=== PATIENT | female | born 1960 | race Caucasian/White ===

== ENCOUNTER 2017-01-24 21:43 | Observation (INO) | payer OTHER ==
[~2017-01-24] VITALS: Ht 157.5 cm; Wt 62.8 kg
[~2017-01-24 21:43] MED LIST: B-CO1CAP3 PO; CHOL100010 PO; COEN100C11 PO; CTP1X PO; CYM/30 PO; FERR325T51 PO; HYDR50CA PO; IBUP-103 PO; MAGN250T3 PO; MULTTAB PO; OMEG12006 PO; TYLENOL MIGRAINE PO; VITACAP26 PO
[2017-01-24] MEDS ORDERED: LORAZEPAM 2 MG/ML 1 ML VIAL IV STA ×2 (21:59→22:42)
[2017-01-24] MEDS ORDERED: SODIUM CHLORIDE 0.9% 1000ML 1,000 ML IV SCH (22:00)
--- NOTE | 2017-01-24 22:03 | EMERGENCY ROOM VISIT NOTE ---
History Report prepared by Yecenia: Eddie Petty Under the Supervision of: Dr. Robby Pinto D.O. First contact with patient: 21:51 Chief Complaint: MENTAL HEALTH EVALUATION Stated Complaint: MENTAL HEALTH EVAL History of Present Illness The patient is a 56 year old female who presents to the Emergency Room for a mental health evaluation. This HPI is limited secondary to intoxication. Per the patient, her friends were concerned about her. She has been drinking alcohol for the past 6 days and has been doing so to try to kill herself. She states that she does not want to live. She has a history of a gastric bypass. She states that secondary to this, she is "extremely sensitive" to everything. She denies any medical problems. Source of History: patient, police History Limited By: intoxication Onset: 6 days ago Position: other (Global) Symptom Intensity: moderate Quality: other (Alcohol intoxication) Timing: constant Review of Systems Limited secondary to intoxication. Past Medical & Surgical Medical Problems: (1) Asthma W/O Status Asthm Family History No pertinent family history Social History Smoking Status: Unknown if Ever Smoked Smokeless Tobacco Use: Unknown Alcohol Use: none Occupation Status: employed Current/Historical Medications Scheduled B-Complex Vitamins (B Complex), 1 CAP PO DAILY Cholecalciferol (Vitamin D), 1,000 INTER.UNIT PO DAILY Clonidine HCl (Clonidine HCl), 1 TAB PO BID Coenzyme Q10 (Ubidecarenone) (Coq-10), 1 CAP PO DAILY Duloxetine HCl (Cymbalta), 1 CAP PO DAILY Ferrous Sulfate (Iron Supplement), 1 TAB PO DAILY Hydroxyzine Pamoate (Vistaril), 1 CAP PO TID Ibuprofen Tab (Advil), 400 MG PO HS Magnesium (Magnesium 250 mg), 1 TAB PO DAILY Multivitamins/Minerals (Mvi With Minerals), 1 TAB PO DAILY Brunswick-3 Fatty Acids ([place]runswick 3), 1 CAP PO DAILY Vitamins C & E (Vitamin C), 1 CAP PO DAILY [Tylenol Migraine], 2 TABS PO HS Allergies Coded Allergies: No Known Allergies (Unverified , 01/24/17) Physical Exam Vital Signs Date Time Temp Pulse Resp B/P Pulse Ox O2 Delivery O2 Flow Rate FiO2 01/24/17 21:45 37.0 101 20 189/121 95 Room Air Physical Exam GENERAL: Awake, alert, disheveled, smells of alcohol, shaky. HENT: Normocephalic, atraumatic. Oropharynx unremarkable. EYES: Normal conjunctiva. Sclera non-icteric. NECK: Supple. No nuchal rigidity. FROM. No JVD. RESPIRATORY: Clear to auscultation. CARDIAC: Regular rate, normal rhythm. Extremities warm and well perfused. Pulses equal. ABDOMEN: Soft, non-distended. No tenderness to palpation. No rebound or guarding. No masses. RECTAL: Deferred. MUSCULOSKELETAL: Chest examination reveals no tenderness. The back is symmetrical on inspection without obvious abnormality. There is no CVA tenderness to palpation. No joint edema. LOWER EXTREMITIES: Calves are equal size bilaterally and non-tender. No edema. No discoloration. NEURO: Normal sensorium. No sensory or motor deficits noted. SKIN: No rash or jaundice noted. Dirty feet. PSYCH: Anxious appearing. Yelling intermittently. Depressed and suicidal. Denies any homicidal ideation. Medical Decision & Procedures Laboratory Results 01/24/17 22:07 Red Blood Count 4.31, Mean Corpuscular Volume 95.1, Mean Corpuscular Hemoglobin 33.6, Mean Corpuscular Hemoglobin Concent 35.4, Mean Platelet Volume 9.4, Neutrophils (%) (Auto) 42.4, Lymphocytes (%) (Auto) 45.8, Monocytes (%) (Auto) 7.8, Eosinophils (%) (Auto) 1.8, Basophils (%) (Auto) 2.0, Neutrophils # (Auto) 2.33, Lymphocytes # (Auto) 2.52, Monocytes # (Auto) 0.43, Eosinophils # (Auto) 0.10, Basophils # (Auto) 0.11 01/24/17 22:07 Test 01/24/17 22:05 01/24/17 22:07 01/24/17 23:28 Ethyl Alcohol mg/dL 419.0 mg/dl (0-3) White Blood Count 5.50 K/uL (4.8-10.8) Red Blood Count 4.31 M/uL (4.2-5.4) Hemoglobin 14.5 g/dL (12.0-16.0) Hematocrit 41.0 % (37-47) Mean Corpuscular Volume 95.1 fL (80-100) Mean Corpuscular Hemoglobin 33.6 pg (25-34) Mean Corpuscular Hemoglobin Concent 35.4 g/dl (32-36) Platelet Count 195 K/uL (130-400) Mean Platelet Volume 9.4 fL (7.4-10.4) Neutrophils (%) (Auto) 42.4 % Lymphocytes (%) (Auto) 45.8 % Monocytes (%) (Auto) 7.8 % Eosinophils (%) (Auto) 1.8 % Basophils (%) (Auto) 2.0 % Neutrophils # (Auto) 2.33 K/uL (1.4-6.5) Lymphocytes # (Auto) 2.52 K/uL (1.2-3.4) Monocytes # (Auto) 0.43 K/uL (0.11-0.59) Eosinophils # (Auto) 0.10 K/uL (0-0.5) Basophils # (Auto) 0.11 K/uL (0-0.2) RDW Standard Deviation 46.1 fL (36.4-46.3) RDW Coefficient of Variation 13.2 % (11.5-14.5) Immature Granulocyte % (Auto) 0.2 % Immature Granulocyte # (Auto) 0.01 K/uL (0.00-0.02) Anion Gap 12.0 mmol/L (3-11) Est Creatinine Clear Calc Drug Dose 93.9 ml/min Estimated GFR () 120.6 Estimated GFR (Non- 104.0 BUN/Creatinine Ratio 18.9 (10-20) Calcium Level 8.3 mg/dl (8.5-10.1) Total Bilirubin 0.6 mg/dl (0.2-1) Direct Bilirubin 0.2 mg/dl (0-0.2) Aspartate Amino Transf (AST/SGOT) 62 U/L (15-37) Alanine Aminotransferase (ALT/SGPT) 83 U/L (12-78) Alkaline Phosphatase 103 U/L (45-117) Total Protein 7.3 gm/dl (6.4-8.2) Albumin 4.1 gm/dl (3.4-5.0) Thyroid Stimulating Hormone (TSH) 1.900 uIu/ml (0.300-4.500) Laboratory results reviewed by me Medications Administered Medications (Trade) Dose Ordered Sig/Amauri Route Start Time Stop Time Status Last Admin Dose Admin Lorazepam 1 mg 1 mg NOW STAT IV 01/24/17 21:59 01/24/17 22:00 DC 01/24/17 22:19 1 MG Sodium Chloride (Nss 1000ml) 1,000 ml @ 999 mls/hr Q1H1M IV 01/24/17 22:00 02/23/17 21:59 01/24/17 22:19 999 MLS/HR Lorazepam (Ativan Inj) 2 mg NOW STAT IV 01/24/17 22:42 01/24/17 22:43 DC 01/24/17 22:55 2 MG Haloperidol Lactate (Haldol Inj) 5 mg NOW STAT IV 01/24/17 22:42 01/24/17 22:43 DC 01/24/17 22:56 5 MG ED Course 2150: The patient was evaluated in room A8. A complete history and physical exam was performed. 2199: Ordered Sodium Chloride 1000 ml @ 999 mls/hr IV 0: The patient is becoming overly agitated at this time. We will be providing her with chemical restraints for her own safety. 2241: Ordered Haldol Inj 5 mg IV, Ativan Inj 2 mg IV 2321: Upon reexamination, the patient was asleep. The patient will be evaluated by Dr. Yobany Cueva, for further management. Medical Decision Differential diagnosis: Etiologies such as alcohol withdrawal, alcohol intoxication, mood disorder, infection, hypoglycemia, electrolyte abnormalities, cardiac sources, intracerebral event, toxicologic, neurologic, as well as others were entertained. Medication Reconciliation: I attest that I have personally reviewed the patient' s current medication list. Blood pressure screening: Patient was found to have an elevated blood pressure and was referred to their primary doctor for recheck and further treatment. Patient evaluated by crisis team. Patient required IV Ativan and Haldol or sedation due to her agitation. Patient was started on IV fluids. Patient has an elevated blood alcohol greater than 400 she is at risk for alcohol withdrawal and needs observation. Patient will be admitted medically. The case is discussed with the [facility]ist for admission at 2330 Consults Time Called: 2319 Consulting Physician: Dr. Yobany Cueva Returned Call: [phone] He will be evaluating the patient for further management and care. Impression Primary Impression: Alcohol intoxication Additional Impressions: Suicidal ideation Alcohol withdrawal Depression Scribe Attestation The scribe's documentation has been prepared under my direction and personally reviewed by me in its entirety. I confirm that the note above accurately reflects all work, treatment, procedures, and medical decision making performed by me. Departure Information Dispostion Being Evaluated By Hospitalist Referrals No Doctor, Assigned (PCP) Patient Instructions My [facility] Problem Qualifiers
[2017-01-24 22:17] LABS: BASO ABS # 0.11 K/uL (0-0.2); COMPLETE YES; EOS % 1.8 %; IG% 0.2 %; LYMPH % 45.8 %; LYMPH ABS # 2.52 K/uL (1.2-3.4); MEAN CELL VOLUME 95.1 fL (80-100); MEAN CORPUSCULAR HEMOGLOBIN 33.6 pg (25-34); MEAN CORPUSCULAR HGB CONC 35.4 g/dl (32-36); MEAN PLATELET VOLUME 9.4 fL (7.4-10.4); MONO % 7.8 %; NEUT % 42.4 %; PLATELET COUNT 195 K/uL (130-400); RED BLOOD COUNT 4.31 M/uL (4.2-5.4)
[2017-01-24 22:42] LABS: BUN/CREATININE RATIO 18.9 (10-20); CREATININE 0.54 mg/dl (0.60-1.20); POTASSIUM 3.5 mmol/L (3.5-5.1)
[2017-01-24] MEDS ORDERED: HALOPERIDOL LACTATE 5 MG/ML 1 ML VIAL IV STA (22:42)
[2017-01-24 22:53] LABS: THYROID STIMULATING HORMONE 1.9 uIu/ml (0.300-4.500)
[2017-01-24 23:01] LABS: CALCIUM 8.3 mg/dl (8.5-10.1)
[2017-01-24] MEDS ORDERED: THIAMINE HCL INJ 100 MG in SYRINGE 9 ML IV SCH (23:28)
[2017-01-24] MEDS ORDERED: THIAMINE HCL 100 MG/ML 2 ML VIAL IV STA (23:28)
[2017-01-24 23:43] LABS: MAGNESIUM 2.1 mg/dl (1.8-2.4)
[2017-01-25] VITALS (7 sets, daily range): BP systolic 110–161; BP diastolic 75–93; PULSE 72–94; TEMP 36.8–37; O2SAT 95–98; Ht 157.5 cm; Wt 62.8 kg
[2017-01-25] MEDS ORDERED: GABAPENTIN 600 MG TAB PO SCH ×2 (01:30→06:00)
[2017-01-25] MEDS ORDERED: LORAZEPAM 2 MG/ML 1 ML VIAL IV PRN (01:30)
[2017-01-25] MEDS ORDERED: IBUPROFEN 200 MG TAB PO PRN (03:30)
[2017-01-25] MEDS ORDERED: ONDANSETRON INJ 2 MG/ML 2 ML VIAL IV PRN (03:30)
[2017-01-25] MEDS ORDERED: SODIUM CHLOR 0.45% + 20MEQ KCL 1,000 ML IV ONE (03:30)
[2017-01-25] MEDS ORDERED: GABAPENTIN 1200MG LOADING DOSE PO SCH (06:00)
[2017-01-25 06:32] LABS: BASO % 1.1 %; BASO ABS # 0.05 K/uL (0-0.2); COMPLETE YES; EOS % 3.4 %; HEMATOCRIT 37.5 % (37-47); IG% 0.2 %; LYMPH ABS # 1.28 K/uL (1.2-3.4); MEAN CELL VOLUME 97.2 fL (80-100); MEAN CORPUSCULAR HEMOGLOBIN 33.4 pg (25-34); MEAN CORPUSCULAR HGB CONC 34.4 g/dl (32-36); MEAN PLATELET VOLUME 9.2 fL (7.4-10.4); MONO % 6.8 %; NEUT % 59.5 %; PLATELET COUNT 139 K/uL (130-400); RED BLOOD COUNT 3.86 M/uL (4.2-5.4); WHITE BLOOD COUNT 4.42 K/uL (4.8-10.8)
--- NOTE | 2017-01-25 07:02 | HISTORY & PHYSICAL EXAMINATION ---
DATE OF ADMISSION: 01/25/2017 The patient has no primary care doctor. CHIEF COMPLAINT: Suicidality as per records. HISTORY OF PRESENT ILLNESS: History obtained from the ER MD, patient's friend and records. Unable to obtain history from the patient secondary obtunded state. Medical history significant for alcohol/tobacco abuse, mood disorder, asthma, hypertension Recent ER visit last year for alcohol overdose and combative behavior. Patient subsequently discharged to [facility] for mental health treatment. As per the patient's friend/coworker, the patient has been under a lot of stress the last week because of personal and financial issues. Verbalized that she wanted to drink herself to the last week. Police was called to get the patient to the hospital. Patient was given Haldol and Ativan for sedation. MEDICAL HISTORY: As above. No history of alcohol withdrawal as per the patient's friend. SURGERIES: Gastric bypass as per records. HOME MEDICATIONS: Vitamin C and E, B complex, vitamin D, Coenzyme Q, Klonopin, Cymbalta, supplement, Vistaril, Advil, multivitamins, omega, and Tylenol. ALLERGIES: No known drug allergies. FAMILY HISTORY: Cannot be obtained. 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 REVIEW OF SYSTEMS: Could not be obtained. PHYSICAL EXAMINATION: VITAL SIGNS: Blood pressure was noted to be 189/121, later 130/89, pulse rate 92, RR 18, temperature 37, sats 95 on room air. GENERAL: Noted to be obtunded, no respiratory distress. SKIN: Normal color. HEENT: Pale palpebral conjunctiva. Moist mucosa. NECK: Short neck. LUNGS: Decreased breath sounds. HEART: Regular rate and rhythm. ABDOMEN: Some distention. EXTREMITIES: No edema. no tenderness NEUROLOGIC: obtunded.miotic pupils LABORATORY DATA: Hemoglobin was noted to be 14.7, hematocrit 40, white cell 5.5, platelets 195. Sodium 140, potassium 3.6 chloride 108, CO2 25, BUN 10, creatinine 0.5, glucose 101. AST 62, ALT 83. Alcohol level was 414. ASSESSMENT: 1. Suicidality suboptimal depression 2. alcoholic intoxication hx ETOH abuse as per px friend 3. hypertension, stable 4. intermittent tobacco abuse. PLAN: Observation GMF DT precautions. Psych consult RE suicidality. Social service RE DC planning nicotine patch prn DVT prophylaxis, Lovenox subQ. Full code. Patient's friend/blocker and cutter contact lens, Miss Marian Be requests updates from providers at [phone]. [facility]
[2017-01-25 07:21] LABS: PROTHROMBIN TIME (PATIENT) 10.6 SECONDS (9.0-12.0)
--- NOTE | 2017-01-25 07:57 | DIAGNOSTIC IMAGING REPORT ---
SINGLE VIEW CHEST CLINICAL HISTORY: Hypoxia. FINDINGS: An AP, portable, supine chest radiograph is obtained. No prior studies are available for comparison at the time of dictation. The examination is significantly degraded by portable technique and patient rotation. The heart is top normal for projection. The pulmonary vasculature is noncongested. There is mild elevation right hemidiaphragm with bibasilar atelectasis. No airspace consolidation, large pleural effusion, or pneumothorax is seen. The skeletal structures are osteopenic. The bony thorax is grossly intact. Surgical clips project over the left upper quadrant. IMPRESSION: No acute cardiopulmonary abnormality. Electronically signed by: Arias Terry M.D. 01/25/2017 7:56 AM Dictated Date/Time: 01/25/2017 7:55 AM
[2017-01-25 08:57] LABS: URINE APPEARANCE CLEAR (CLEAR); URINE BILIRUBIN NEG (NEG); URINE COLOR YELLOW; URINE EPITHELIAL CELL AUTO 20-30 /lpf (0-5); URINE NITRITE NEG (NEG); URINE SPECIFIC GRAVITY 1.018 (1.000-1.030); UROBILINOGEN NEG (NEG)
[2017-01-25] MEDS: ENOXAPARIN 40 MG/0.4 ML SYR SQ SCH (09:00)
[2017-01-25 09:08] LABS: MANUAL MICROSCOPIC REQUIRED? NO; REVIEW REQ? NO
[2017-01-25] MEDS: VITAMIN B COMPLEX TAB PO SCH (09:13)
[2017-01-25] MEDS: CEROVITE ADV FORMULA TAB PO SCH (09:13)
[2017-01-25] MEDS: CLONIDINE HCL 0.1 MG TAB PO SCH ×2 (09:13→20:44)
[2017-01-25] MEDS: FERROUS SULFATE 325 MG TAB PO SCH (09:13)
[2017-01-25] MEDS: DULOXETINE (CYMBALTA) 30 MG CAP PO SCH (09:14)
[2017-01-25 09:15] LABS: BENZODIAZEPINE, URINE NEG (NEG); COCAINE,URINE NEG (NEG); PHENCYCLIDINE, URINE NEG (NEG)
[2017-01-25] MEDS: GABAPENTIN 600MG Q6H DOSE PO SCH ×2 (13:10→17:40)
[2017-01-25] MEDS ORDERED: LORAZEPAM INJ 2 MG in SYRINGE 1 ML IV PRN (13:15)
[2017-01-25] MEDS ORDERED: LORAZEPAM INJ 3 MG in SYRINGE 1.5 ML IV PRN (13:15)
[2017-01-25] MEDS: LORAZEPAM INJ 1 MG in SYRINGE 0.5 ML IV PRN ×2 (13:42→20:57)
--- NOTE | 2017-01-25 17:29 | Psychiatric Consultation ---
Consultation Date of Consultation Jan 25, 2017. Identifying Data Ida Dooley is a 56-year-old female who currently lives alone in [place]. She was brought to the ER with a 302 petition by a friend who states that patient has been trying to drink herself to . Chief Complaint "overwhelmed". History of Present Illness Patient interviewed in room on medical floor. She reports that she has been drinking vodka with the intention to kill herself and states that she has been "drinking to kill myself." She drank 1/2 bottle of vodka before she was brought to the hospital. She reports drinking vodka "straight out of the bottle" on weekends and several nights a week. She uses her fingers to show me how much she usually drinks which appears to be about 3-4 inches of vodka out of the bottle and states "what is the point of using a glass." She endorses depressed mood, suicidal thoughts over the past year. She has poor sleep and tosses and turns unitl 3:30 am. She estimates sleeping about 3 hours/night for the past year. She sees a nurse practitioner, whose name she doesn't remember, at a primary care clinic in [place]. She has been taking Cymbalta 30 mg daily for the past year and isn't sure if it helps her mood but she feels worse if she misses taking it. She reports that a couple weeks ago she took some old Ativan together with vistaril in an effort to sleep and she had delusions of "weird shit" on the TV and saw "stuff crawling on he betancur." She reports anxiety related to financial and work stressors. 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 She does not know the outcome of the hearing and is worried that she will lose her license. Past Psychiatric History Prior OP Treatment: therapist (Shonna Galvan wouldn't see her anymore when she found out she was drinking and also no insurance) Prior Psych Hospitalizations: [facility] Access to a Gun: No Suicide Attempts: Yes Past Medical/Surgical History History of Concussion/Seizure: Yes (head injury in the 1990s, no history of seizure) Allergies Allergies: Coded Allergies: No Known Allergies (Unverified , 01/24/17) Home Medications Scheduled B-Complex Vitamins (B Complex), 1 CAP PO DAILY Cholecalciferol (Vitamin D), 1,000 INTER.UNIT PO DAILY Clonidine HCl (Clonidine HCl), 1 TAB PO BID Coenzyme Q10 (Ubidecarenone) (Coq-10), 1 CAP PO DAILY Duloxetine HCl (Cymbalta), 1 CAP PO DAILY Ferrous Sulfate (Iron Supplement), 1 TAB PO DAILY Hydroxyzine Pamoate (Vistaril), 1 CAP PO TID Ibuprofen Tab (Advil), 400 MG PO HS Magnesium (Magnesium 250 mg), 1 TAB PO DAILY Multivitamins/Minerals (Mvi With Minerals), 1 TAB PO DAILY Mitchell-3 Fatty Acids (Mitchell 3), 1 CAP PO DAILY Vitamins C & E (Vitamin C), 1 CAP PO DAILY [Tylenol Migraine], 2 TABS PO HS Family History No pertinent family history History of Suicide: Yes (sister attempted suicide ) History of Substance Abuse: Yes Psychiatric History: Yes (depresssion) Alcohol Use Alcohol Use In Past 12 Months: Yes (vodka 5-7day/week 4-5 drinks) Smoking Use Smoking Status: Unknown if Ever Smoked Personal History Education: advanced degree 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 Haywood Vital Signs Vital Signs Past 12 Hours Date Time Temp Pulse Resp B/P (MAP) Pulse Ox O2 Delivery O2 Flow Rate FiO2 01/25/17 15:06 36.8 72 16 135/89 (104) 96 Room Air 01/25/17 09:29 36.8 82 19 161/90 (113) 98 Room Air 01/25/17 08:00 Nasal Cannula 2.0 01/25/17 07:45 36.8 94 16 155/91 (112) 97 01/25/17 05:18 37.0 88 12 150/81 97 Nasal Cannula 2.0 Laboratory Results Last 24 Hours Test 01/24/17 22:05 01/24/17 22:07 01/25/17 06:18 01/25/17 08:40 Ethyl Alcohol mg/dL 419.0 mg/dl White Blood Count 5.50 K/uL 4.42 K/uL Red Blood Count 4.31 M/uL 3.86 M/uL Hemoglobin 14.5 g/dL 12.9 g/dL Hematocrit 41.0 % 37.5 % Mean Corpuscular Volume 95.1 fL 97.2 fL Mean Corpuscular Hemoglobin 33.6 pg 33.4 pg Mean Corpuscular Hemoglobin Concent 35.4 g/dl 34.4 g/dl Platelet Count 195 K/uL 139 K/uL Mean Platelet Volume 9.4 fL 9.2 fL Neutrophils (%) (Auto) 42.4 % 59.5 % Lymphocytes (%) (Auto) 45.8 % 29.0 % Monocytes (%) (Auto) 7.8 % 6.8 % Eosinophils (%) (Auto) 1.8 % 3.4 % Basophils (%) (Auto) 2.0 % 1.1 % Neutrophils # (Auto) 2.33 K/uL 2.63 K/uL Lymphocytes # (Auto) 2.52 K/uL 1.28 K/uL Monocytes # (Auto) 0.43 K/uL 0.30 K/uL Eosinophils # (Auto) 0.10 K/uL 0.15 K/uL Basophils # (Auto) 0.11 K/uL 0.05 K/uL RDW Standard Deviation 46.1 fL 47.8 fL RDW Coefficient of Variation 13.2 % 13.5 % Immature Granulocyte % (Auto) 0.2 % 0.2 % Immature Granulocyte # (Auto) 0.01 K/uL 0.01 K/uL Sodium Level 145 mmol/L Potassium Level 3.5 mmol/L Chloride Level 108 mmol/L Carbon Dioxide Level 25 mmol/L Anion Gap 12.0 mmol/L Blood Urea Nitrogen 10 mg/dl Creatinine 0.54 mg/dl Est Creatinine Clear Calc Drug Dose 93.9 ml/min Estimated GFR () 120.6 Estimated GFR (Non- 104.0 BUN/Creatinine Ratio 18.9 Random Glucose 101 mg/dl Calcium Level 8.3 mg/dl Magnesium Level 2.1 mg/dl Total Bilirubin 0.6 mg/dl 0.6 mg/dl Direct Bilirubin 0.2 mg/dl 0.2 mg/dl Aspartate Amino Transf (AST/SGOT) 62 U/L 50 U/L Alanine Aminotransferase (ALT/SGPT) 83 U/L 68 U/L Alkaline Phosphatase 103 U/L 84 U/L Total Protein 7.3 gm/dl 6.0 gm/dl Albumin 4.1 gm/dl 3.2 gm/dl Thyroid Stimulating Hormone (TSH) 1.900 uIu/ml Prothrombin Time 10.6 SECONDS Prothromb Time International Ratio 1.0 Urine Color YELLOW Urine Appearance CLEAR Urine pH 6.0 Urine Specific [place] 1.018 Urine Protein TRACE Urine Glucose (UA) NEG Urine Ketones NEG Urine Occult Blood TRACE Urine Nitrite NEG Urine Bilirubin NEG Urine Urobilinogen NEG Urine Leukocyte Esterase NEG Urine WBC (Auto) 1-5 /hpf Urine RBC (Auto) 0-4 /hpf Urine Hyaline Casts (Auto) 1-5 /lpf Urine Epithelial Cells (Auto) 20-30 /lpf Urine Bacteria (Auto) NEG Urine Opiates Screen NEG Urine Methadone, Qualitative NEG Urine Barbiturates NEG Urine Phencyclidine (PCP) Level NEG Ur Amphetamine/Methamphetamine NEG MDMA (Ecstasy) Screen NEG Urine Benzodiazepines Screen NEG Urine Cocaine Metabolite NEG Urine Marijuana (THC) NEG Mental Examination During interview pt is: alert and oriented, cooperative, guarded Appearance: appropriately dressed, disheveled Eye contact is: poor Motor behavior is: tremor Speech: normal in rate, rhythm & volume Affect: mood congruent Mood is: depressed Thought process: clear, coherent Thought content: hopelessness Suicidal thought are: present, Plan: present Homicidal thoughts are: denied Hallucinations: denies auditory, denies visual Cognition: memory grossly intact, attention grossly intact, other Intelligence estimated to be: consistent with level of education Insight: impaired Judgement: impaired Impression / Recommendations Impression Reviewed with Dr. Iris Lorenzana At this time it is anticipated that patient will need inpatient mental health treatment. If patient attempts to leave the hospital 302 procedure should be followed using the petition on the chart. Risk Factors Assessment : Yes /single/: Yes Access to guns: No Health problems: Yes Mental Health Diagnoses: Yes Substance use disorders: Yes Previous psychiatric stay: Yes Protective Factors Assessment Employed: No
--- NOTE | 2017-01-25 17:55 | Progress Note ---
Progress Note Date of Service Jan 25, 2017. Progress Note ATTENDING NOTE : pt admitted earlier today with Alcohol intoxication , suicidal ideation blood alcohol level > 400 continued on Alcohol withdrawal protocol Psych eval requested -appreciate input will need In patient psych admission when medically stable pt seen at bedside in room 282-2 Awake and alert conversing appropriately , tremor noted in hands denies of being anxious discussed briefly regarding Alcohol dependency , benefit with rehab does not want to go to rehab yet willing to go to inpatient Psych unit for continued therapy and counselling for depression /SI cont to monitor in Tele caution for DT /severe alcohol withdrawal
[2017-01-26] MEDS: GABAPENTIN 600MG Q8H DOSE PO SCH ×3 (02:12→18:11)
[2017-01-26] MEDS: ACETAMINOPHEN 325 MG TAB PO PRN ×3 (05:08→23:21)
[2017-01-26 06:47] VITALS: BP 144/98; PULSE 66; TEMP 36.6; O2SAT 98
[2017-01-26] MEDS: VITAMIN B COMPLEX TAB PO SCH (07:28)
[2017-01-26] MEDS: CLONIDINE HCL 0.1 MG TAB PO SCH ×2 (07:28→21:26)
[2017-01-26] MEDS: DULOXETINE (CYMBALTA) 30 MG CAP PO SCH (07:29)
[2017-01-26] MEDS: FERROUS SULFATE 325 MG TAB PO SCH (07:29)
[2017-01-26] MEDS: ENOXAPARIN 40 MG/0.4 ML SYR SQ SCH ×2 (07:30→07:33)
[2017-01-26 08:41] LABS: BUN/CREATININE RATIO 14.2 (10-20); CALCIUM 8.8 mg/dl (8.5-10.1); CREATININE 0.5 mg/dl (0.60-1.20); POTASSIUM 3.9 mmol/L (3.5-5.1)
[2017-01-26 08:43] LABS: ALB/GLOB RATIO 1.2 (0.9-2)
[2017-01-26] MEDS: CEROVITE ADV FORMULA TAB PO SCH (10:30)
[2017-01-26] MEDS: THIAMINE HCL 100 MG TAB PO SCH (10:31)
--- NOTE | 2017-01-26 15:47 | Psychiatric Progress Notes ---
Psychiatric Progress Note Date of Service Jan 26, 2017. Notes ID: Patient reviewed with liaison nurse. I personally participated in the medical decision making outlined in the initial consult by BREANN Myers on . Patient admit with ETOH intoxication having made suicidal statements. 302 warrant on chart. CC: "I want out of here, I have to work" HPI: patient states that she is feeling much better, denies SI currently and will not endorse statements made to staff yesterday. States she should have never told her nurse about her issues and is clear she doesn't want to go "back to the nuthouse". She states she simply needs to stop drinking but can't outline a viable plan, particularly as not agreeable to rehab. 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 ROS: denied tremor, N, NICK, SI. does endorse some dreams of delirium where she is picking at the air. MSE: alert, limited eye contact, somewhat guarded, doesn't reliably answer questions re: safety planning, no evidence of psychosis. Imp: ETOH dependence with recurrence of depressive disorder. Minimizing SI and need for inpatient treatment. Plan: reviewed with patient that is she is not agreeable to inpatient psychiatric hospitalization for stabilizing and monitoring when she is medically cleared that providers will commit her for safety. She agreed to consider voluntary treatment and stated she mainly wanted to go kayaking with a friend this weekend. Reviewed importance of commitment to treatment given involvement of licensing board.
[2017-01-26 15:52] VITALS: BP 141/93; PULSE 71; TEMP 36.8; O2SAT 98
[2017-01-26 16:00] VITALS: O2SAT 98
--- NOTE | 2017-01-26 17:52 | Discharge Instructions ---
Discharge Instructions Date of Service Jan 26, 2017. Admission Reason for Admission: Alcohol Intoxication, Suicidal Ideation Discharge Discharge Diagnosis / Problem: ALCOHOL ABUSE /SUICIDIAL IDEATION /DEPRESSION Discharge Goals Goal(s): Decrease discomfort, Improve disease control Activity Recommendations Activity Limitations: resume your previous activity . Instructions / Follow-Up Instructions / Follow-Up FOLLOW UP WITH PSYCHIATRY AFTER DISCHARGE FORM MENTAL HEALTH UNIT FOR CONTINUED COUNSELLING AND THERAPY FOLLOW UP WITH YOUR FAMILY PHYSICIAN FOR POST HOSPITAL VISIT IN 1-2 WEEKS OF DISCHARGE NEED TO QUIT ALCOHOL DRINKING STRONGLY RECOMMEND ALCOHOL/SUBSTANCE ABUSE REHAB Current Hospital Diet Patient's current hospital diet: AHA Diet (Heart Healthy) Discharge Diet Recommended Diet: AHA Diet (Heart Healthy) Pending Studies Studies pending at discharge: no Medical Emergencies . Who to Call and When: Medical Emergencies: If at any time you feel your situation is an emergency, please call 911 immediately. . Non-Emergent Contact Non-Emergency issues call your: Primary Care Provider . . "Provider Documentation" section prepared by Shy Harman. . VTE Core Measure Inpt VTE Proph given/why not?: Enoxaparin (Lovenox)SQ
--- NOTE | 2017-01-26 17:58 | Progress Note ---
Progress Note Date of Service Jan 26, 2017. Progress Note ATTENDING NOTE : Appreciate input form Psychiatry pt dose not have any s/s of ETOH withdrawal vitals remains stable had not required Ativan frequently Last dose was yesterday 01/25/17 @ 1999 medically stable to go to in patient Psychiatry unit D/w Psych Liason -no bed available in [address] [place] [address] they will try to arrange /look for bed in other facilities -[facility] pt can be discharged to inpatient psych unit as bed available Discharge instructions done Nursing updated
[2017-01-26 21:26] VITALS: BP 149/91; PULSE 95; TEMP 36.9; O2SAT 98
--- NOTE | 2017-01-26 22:58 | Progress Note ---
Internal Med Progress Note Date of Service: Jan 26, 2017. Provider Documentation: SUBJECTIVE: no s/s of withdrawl OBJECTIVE: Vital Signs-as noted below Exam: General-no sign of distress Eyes-sclera non icteric ENT-nad Neck-no JVD Lungs-CTA Heart-regular S1/S2 Abdomen-soft, non tender Extremities-no lower ext edema Neuro-AAO x3 Lab data as noted below. ASSESSMENT & PLAN: ALCOHOL INTOXICATION presented with intoxicated state -ETOH level > 400 in blood test monitored in telemetry with alcohol withdrawal protocol pt is approx > 72 hrs past her last ETOH drink no evidence of Withdrawal so far pt will be continued with Neurontin with Taper dose as per protocol DEPRESSION /SUICIDAL IDEATION Cont Cymbalta appreciate Psych eval will need inpatient Psych admission for suicidal ideation /Major depression complicated by Alcohol abuse DVT PROPHYLAXIS ordered for Sub q Lovenox pt been refusing DISPOSITION Discharge to in patient Mental Health Unit for continued management /therapy of Depression /suicidal ideation pt been medically stable Counselled to seek help for Alcohol dependency /addiction preferably Alcohol rehab -pt been refusion pt was initially 302 at in ED now willing for voluntary commitment at Mental health Unit Psych help appreciated No bed available at [address] [place] [address] Mental health Unit [facility] mental Health Unit will not be able to accept the pt Psych team will continue to look into other facility for bed availability / acceptance in Mental Health Unit Vital Signs: Date Time Temp Pulse Resp B/P (MAP) Pulse Ox O2 Delivery O2 Flow Rate FiO2 01/26/17 21:26 36.9 95 18 149/91 (110) 98 01/26/17 16:00 98 Room Air 2.0 01/26/17 15:52 36.8 71 18 141/93 (109) 98 Room Air 01/26/17 08:00 Room Air 01/26/17 06:47 36.6 66 17 144/98 (113) 98 Room Air 01/26/17 00:00 Room Air Lab Results: Results Past 24 Hours Test 01/26/17 07:51 Range/Units Sodium Level 135 136-145 mmol/L Potassium Level 3.9 3.5-5.1 mmol/L Chloride Level 98 98-107 mmol/L Carbon Dioxide Level 27 21-32 mmol/L Anion Gap 10.0 3-11 mmol/L Blood Urea Nitrogen 7 7-18 mg/dl Creatinine 0.50 0.60-1.20 mg/dl Est Creatinine Clear Calc Drug Dose 106.9 ml/min Estimated GFR () 123.7 Estimated GFR (Non- 106.7 BUN/Creatinine Ratio 14.2 10-20 Random Glucose 105 70-99 mg/dl Calcium Level 8.8 8.5-10.1 mg/dl Total Bilirubin 2.3 0.2-1 mg/dl Aspartate Amino Transf (AST/SGOT) 53 15-37 U/L Alanine Aminotransferase (ALT/SGPT) 68 12-78 U/L Alkaline Phosphatase 108 45-117 U/L Total Protein 7.0 6.4-8.2 gm/dl Albumin 3.8 3.4-5.0 gm/dl Globulin 3.2 2.5-4.0 gm/dl Albumin/Globulin Ratio 1.2 0.9-2
[2017-01-26] MEDS ORDERED: THIA1TAB PO (23:15)
[2017-01-26] MEDS ORDERED: FLV1 PO (23:15)
[2017-01-27 00:10] VITALS: BP 144/93; PULSE 80; TEMP 36.7; O2SAT 97
[2017-01-27] MEDS ORDERED: LORAZEPAM 0.5 MG TAB PO PRN (00:15)
[2017-01-27] MEDS ORDERED: GABAPENTIN 600MG Q12H DOSE PO SCH (06:00)
[2017-01-27 07:05] LABS: ALB/GLOB RATIO 1.2 (0.9-2); BUN/CREATININE RATIO 19.7 (10-20); CALCIUM 8.2 mg/dl (8.5-10.1); CREATININE 0.47 mg/dl (0.60-1.20); POTASSIUM 3.2 mmol/L (3.5-5.1)
[2017-01-27 07:17] VITALS: BP 135/91; PULSE 66; TEMP 36.7; O2SAT 95
[2017-01-27] MEDS: ENOXAPARIN 40 MG/0.4 ML SYR SQ SCH (07:23)
[2017-01-27] MEDS: VITAMIN B COMPLEX TAB PO SCH (07:50)
[2017-01-27] MEDS: CLONIDINE HCL 0.1 MG TAB PO SCH (07:50)
[2017-01-27] MEDS: CEROVITE ADV FORMULA TAB PO SCH (07:50)
[2017-01-27] MEDS: FERROUS SULFATE 325 MG TAB PO SCH (07:50)
[2017-01-27] MEDS: DULOXETINE (CYMBALTA) 30 MG CAP PO SCH (07:50)
[2017-01-27] MEDS: THIAMINE HCL 100 MG TAB PO SCH (07:51)
[2017-01-27 15:15] VITALS: BP 135/91; PULSE 66; TEMP 36.7; O2SAT 95
--- NOTE | 2017-01-27 15:49 | Progress Note ---
Internal Med Progress Note Date of Service: Jan 27, 2017. Provider Documentation: SUBJECTIVE: no evidence of alcohol withdrawal very calm and co operative ambulating independently in hallway willing to go to [address] [place] [address] voluntarily medically stable to got to inpatient mental unit for treatment of Major Depression OBJECTIVE: Vital Signs-as noted below Exam: General-no sign of distress Eyes-sclera non icteric ENT-nad Neck-no JVD Lungs-CTA Heart-regular S1/S2 Abdomen-soft, non tender Extremities-no lower ext edema Neuro-AAO x3 Lab data as noted below. ASSESSMENT & PLAN: ALCOHOL INTOXICATION presented with intoxicated state -ETOH level > 400 in blood test monitored in telemetry with alcohol withdrawal protocol pt is approx > 90 hrs past her last ETOH drink no evidence of Withdrawal so far stable to be discharged to mental health unit today DEPRESSION /SUICIDAL IDEATION Cont Cymbalta appreciate Psych eval will need inpatient Psych admission for suicidal ideation /Major depression complicated by Alcohol abuse will be transferred to [address] [place] [address] for continued tx for Depression and counselling DVT PROPHYLAXIS ordered for Sub q Lovenox pt been refusing DISPOSITION Discharge to in patient Mental Health Unit for continued management /therapy of Depression /suicidal ideation today pt been medically stable Counselled to seek help for Alcohol dependency /addiction preferably Alcohol rehab now willing for voluntary commitment at Mental health Unit Vital Signs: Date Time Temp Pulse Resp B/P (MAP) Pulse Ox O2 Delivery O2 Flow Rate FiO2 01/27/17 15:15 36.7 66 16 95 Room Air 01/27/17 08:00 Room Air 01/27/17 07:17 36.7 66 16 135/91 (106) 95 Room Air 01/27/17 00:10 36.7 80 16 144/93 (110) 97 Room Air 01/27/17 00:00 Room Air 01/26/17 21:26 36.9 95 18 149/91 (110) 98 01/26/17 16:00 98 Room Air 2.0 01/26/17 15:52 36.8 71 18 141/93 (109) 98 Room Air Lab Results: Results Past 24 Hours Test 01/27/17 05:52 Range/Units Sodium Level 135 136-145 mmol/L Potassium Level 3.2 3.5-5.1 mmol/L Chloride Level 99 98-107 mmol/L Carbon Dioxide Level 28 21-32 mmol/L Anion Gap 8.0 3-11 mmol/L Blood Urea Nitrogen 9 7-18 mg/dl Creatinine 0.47 0.60-1.20 mg/dl Est Creatinine Clear Calc Drug Dose 113.7 ml/min Estimated GFR () 126.2 Estimated GFR (Non- 108.9 BUN/Creatinine Ratio 19.7 10-20 Random Glucose 94 70-99 mg/dl Calcium Level 8.2 8.5-10.1 mg/dl Total Bilirubin 1.2 0.2-1 mg/dl Aspartate Amino Transf (AST/SGOT) 60 15-37 U/L Alanine Aminotransferase (ALT/SGPT) 65 12-78 U/L Alkaline Phosphatase 95 45-117 U/L Total Protein 5.9 6.4-8.2 gm/dl Albumin 3.2 3.4-5.0 gm/dl Globulin 2.7 2.5-4.0 gm/dl Albumin/Globulin Ratio 1.2 0.9-2
--- NOTE | 2017-01-27 15:50 | Discharge Summary ---
Discharge Summary Date of Service Jan 27, 2017. Discharge Summary Admission Date: Jan 25, 2017 at 03:13 Discharge Date: Jan 26, 2017 Discharge Disposition: Acute care mental health Principal Diagnosis: ALCOHOL ABUSE /SUICIDAL IDEATION /DEPRESSION Consultations: PSYCHIATRY Medication Reconciliation New Medications: Folic Acid (Folic Acid) 1 Mg Tab 1 TABS PO DAILY for 30 Days, #30 TABS Thiamine Hcl (B-1) 100 Mg Tab 1 TAB PO DAILY for 30 Days, #30 TABS Continued Medications: B-Complex Vitamins (B Complex) 1 Cap Cap 1 CAP PO DAILY Cholecalciferol (Vitamin D) 1,000 Inter.unit Tab 1000 INTER.UNIT PO DAILY, TAB Clonidine HCl (Clonidine HCl) 0.1 Mg Tab 1 TAB PO BID Coenzyme Q10 (Ubidecarenone) (Coq-10) 100 Mg Cap 1 CAP PO DAILY Duloxetine HCl (Cymbalta) 30 Mg Cap 1 CAP PO DAILY for 30 Days, #30 CAP 5 Refills Ferrous Sulfate (Iron Supplement) 325 Mg Tab 1 TAB PO DAILY Ibuprofen Tab (Advil) 200 Mg Tab 400 MG PO HS, TAB Magnesium (Magnesium 250 mg) 1 Tab Tab 1 TAB PO DAILY Multivitamins/Minerals (Mvi With Minerals) Tab 1 TAB PO DAILY, TAB [place]-3 Fatty Acids ([place] 3) 1 Cap Cap 1 CAP PO DAILY Vitamins C & E (Vitamin C) 1 Cap Cap 1 CAP PO DAILY [Tylenol Migraine] () 2 TABS PO HS Discontinued Medications: Hydroxyzine Pamoate (Vistaril) 50 Mg Cap 1 CAP PO TID for 30 Days, #90 CAP Admission Information HPI (per Admitting provider): DATE OF ADMISSION: 01/25/2017 The patient has no primary care doctor. CHIEF COMPLAINT: Suicidality as per records. HISTORY OF PRESENT ILLNESS: History obtained from the patient's friend and records, ERMD, unable to obtain history from the patient secondary obtunded state. Medical history significant for alcohol abuse, tobacco abuse, mood disorder, asthma, hypertension, recent ER visit last year for alcohol overdose and combative behavior. The patient subsequently discharged to [facility] for mental health treatment. As per the patient's friend, coworker the last week, the patient undergoing a lot of stress, verbalized that she wanted to drink herself to the last week because of personal issues and financial issues. Police was called to get the patient to the hospital. The patient was given Haldol and Ativan for sedation. Physical Exam (per Admitting): PHYSICAL EXAMINATION: VITAL SIGNS: Blood pressure was noted to be 189/121, later 130/89, pulse rate 92, RR 18, temperature 37, sats 95 on room air. GENERAL: Noted to be obtunded, no respiratory distress. SKIN: Normal color. HEENT: Pale palpebral conjunctiva. Moist mucosa. NECK: Short neck. LUNGS: Decreased breath sounds. HEART: Regular rate and rhythm. ABDOMEN: Some distention. EXTREMITIES: No edema. NEUROLOGIC: Myotic pupils and obtunded. Hospital Course ALCOHOL INTOXICATION presented with intoxicated state -ETOH level > 400 in blood test monitored in telemetry with alcohol withdrawal protocol pt is approx > 90 hrs past her last ETOH drink no evidence of Withdrawal so far stable to be discharged to mental health unit today DEPRESSION /SUICIDAL IDEATION Cont Cymbalta appreciate Psych eval will need inpatient Psych admission for suicidal ideation /Major depression complicated by Alcohol abuse will be transferred to [address] [place] [address] for continued tx for Depression and counselling DVT PROPHYLAXIS ordered for Sub q Lovenox pt been refusing DISPOSITION Discharge to in patient Mental Health Unit for continued management /therapy of Depression /suicidal ideation today pt been medically stable Counselled to seek help for Alcohol dependency /addiction preferably Alcohol rehab now willing for voluntary commitment at Mental health Unit Discharge Instructions Discharge Instructions Date of Service Jan 26, 2017. Admission Reason for Admission: Alcohol Intoxication, Suicidal Ideation Discharge Discharge Diagnosis / Problem: ALCOHOL ABUSE /SUICIDAL IDEATION /DEPRESSION Discharge Goals Goal(s): Decrease discomfort, Improve disease control Activity Recommendations Activity Limitations: resume your previous activity . Instructions / Follow-Up Instructions / Follow-Up FOLLOW UP WITH PSYCHIATRY AFTER DISCHARGE FORM MENTAL HEALTH UNIT FOR CONTINUED COUNSELLING AND THERAPY FOLLOW UP WITH YOUR FAMILY PHYSICIAN FOR POST HOSPITAL VISIT IN 1-2 WEEKS OF DISCHARGE NEED TO QUIT ALCOHOL DRINKING STRONGLY RECOMMEND ALCOHOL/SUBSTANCE ABUSE REHAB Current Hospital Diet Patient's current hospital diet: AHA Diet (Heart Healthy) Discharge Diet Recommended Diet: AHA Diet (Heart Healthy) Pending Studies Studies pending at discharge: no Medical Emergencies . Who to Call and When: Medical Emergencies: If at any time you feel your situation is an emergency, please call 911 immediately. . Non-Emergent Contact Non-Emergency issues call your: Primary Care Provider . . "Provider Documentation" section prepared by Shy Harman. . VTE Core Measure Inpt VTE Proph given/why not?: Enoxaparin (Lovenox)SQ Additional Copies To Iris Lorenzana M.D.
[2017-01-27] MEDS ORDERED: ACET-1256 PO (18:18)
[2017-01-27] MEDS ORDERED: NALT50TA16 PO (18:21)
[2017-01-28] MEDS ORDERED: GABAPENTIN 600MG Q24H DOSE PO SCH (18:00)
== END 2017-01-27 16:21 | disposition home or self-care (01) ==
LOC: C.EDB 21:44 → C.MED 01-25 03:13 → ENRESERV 01-25 04:01 → EDBEDREQ 01-25 04:04 → C.MED 01-25 09:27
PROVIDERS: ADMIT Hospitalist; ATTEND Hospitalist
DX: F10.129 Alcohol abuse with intoxication, unspecified (principal); R45.851 Suicidal ideations; F32.9 Major depressive disorder, single episode, unspecified; J45.909 Unspecified asthma, uncomplicated; I10 Essential (primary) hypertension; Z98.84 Bariatric surgery status

== ENCOUNTER 2017-01-27 16:21 | Inpatient (IN) | payer OTHER ==
[~2017-01-27] VITALS: Ht 157.5 cm; Wt 62.8 kg
[~2017-01-27 16:21] MED LIST changes: +FLV1 PO; -HYDR50CA PO; +THIA1TAB PO
[2017-01-27] MEDS ORDERED: ALUMINUM/MAGNESIUM SUSP 30 ML UDC PO PRN (17:00)
[2017-01-27] MEDS ORDERED: hydrOXYzine HCL 25 MG TAB PO PRN ×2 (17:00)
[2017-01-27] MEDS ORDERED: LORAZEPAM 1 MG TAB PO PRN (17:00)
[2017-01-27] MEDS ORDERED: SODIUM CHLORIDE 0.65% NA SOLN 45 ML (OCEAN) PRN (17:00)
[2017-01-27] MEDS ORDERED: BISMUTH SUBSALICYLATE PER ML OMNICELL CHARGE PO PRN (17:00)
[2017-01-27] MEDS ORDERED: MAGNESIUM HYDROXIDE SUSP 30 ML UDC PO PRN (17:00)
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
[2017-01-27] MEDS ORDERED: ACET-1256 PO (18:18)
[2017-01-27] MEDS ORDERED: NALT50TA16 PO (18:21)
[2017-01-27 18:59] VITALS: BP 114/72; PULSE 80; TEMP 37; Ht 157.5 cm; Wt 62.8 kg
[2017-01-27 20:04] VITALS: BP 114/72; PULSE 80; TEMP 37
[2017-01-27] MEDS: IBUPROFEN 200 MG TAB PO SCH (20:12)
[2017-01-27] MEDS: CLONIDINE HCL 0.1 MG TAB PO SCH (20:15)
[2017-01-27] MEDS ORDERED: NURSING VERBAL MED ORDER ONE (20:45)
[2017-01-27] MEDS ORDERED: GABAPENTIN 600 MG TAB PO SCH (22:00)
[2017-01-28 06:38] VITALS: BP_SYST 143; BP_SYST 154; BP_DIAS 100; BP_DIAS 97; PULSE 73; TEMP 36.9
[2017-01-28] MEDS: IBUPROFEN 200 MG TAB PO PRN (08:04)
[2017-01-28 08:42] LABS: CHOLESTEROL/HDL RATIO 1.8; MAGNESIUM 2.3 mg/dl (1.8-2.4); PHOSPHORUS 4.6 mg/dl (2.5-4.9); POTASSIUM 3.8 mmol/L (3.5-5.1)
[2017-01-28 08:58] VITALS: BP 143/97; PULSE 73; TEMP 36.9
[2017-01-28 08:59] LABS: CALCIUM 8.7 mg/dl (8.5-10.1)
[2017-01-28] MEDS ORDERED: DULOXETINE (CYMBALTA) 30 MG CAP PO SCH (09:00)
[2017-01-28] MEDS ORDERED: MAGNESIUM OXIDE 400 MG TAB PO SCH (09:00)
[2017-01-28] MEDS ORDERED: NON-FORMULARY MEDICATION (Vitamins C & E (Vitamin C) 1 CAP) PO SCH (09:00)
[2017-01-28] MEDS ORDERED: NON-FORMULARY MEDICATION (Coenzyme Q10 (Ubidecarenone) (Coq-10) 1 CAP) PO SCH (09:00)
[2017-01-28] MEDS: CLONIDINE HCL 0.1 MG TAB PO SCH (10:12)
[2017-01-28] MEDS: FERROUS SULFATE 325 MG TAB PO SCH (10:13)
[2017-01-28] MEDS: CEROVITE ADV FORMULA TAB PO SCH (10:13)
[2017-01-28] MEDS: VITAMIN B COMPLEX TAB PO SCH (10:13)
[2017-01-28] MEDS: OMEGA-3 (PURIFIED FISH OIL) 1 GM CAP PO SCH (10:13)
[2017-01-28] MEDS: MAGNESIUM OXIDE 400 MG TAB PO SCH (10:13)
[2017-01-28] MEDS: CHOLECALCIFEROL 1000 INTER.UNIT TAB PO SCH (10:14)
[2017-01-28] MEDS: THIAMINE HCL 100 MG TAB PO SCH (10:14)
[2017-01-28] MEDS ORDERED: NALTREXONE HCL 50 MG TAB PO ONE (11:30)
--- NOTE | 2017-01-28 13:03 | Psychiatric Progress Notes ---
Progress Note Date of Service Jan 28, 2017. Interval History 56 yo female admit on 201 on transfer from the med floor for SI and ETOH intoxication (NAMAN >400). Chief Complaint "I messed up". Subjective Patient was seen & assessed interval progress reviewed with nursing. Patient more forthcoming re: legal history 01/28 and added that she is on probation for 2 years and is at risk of snf time if misses hearing on 01/30/17 as already " messed up bail". All of this is [facility]. Apparently she is also prescribed Revia and was getting refills from a PA-C in [place]. She admits that she had tried to "drink myself to " before related to legal issues several months ago. 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 She is embarrassed about her behavior and requests that Neurontin taper be performed more quickly as causes sedation and she denies any withdrawal symptoms. She states her BPs this am are baseline. She agrees to continue vitamins as ordered here rather than taking her home supplement Neurvasia. Review of Systems Psych: denies symptoms other than stated above Constitutional: denied Cardiovascular: denied GI: denied Neurologic: denied Remainder of 10 body systems also reviewed and denied other than noted above. Sleep Information Total Hours of Sleep: 5.50 Meal Information Percent of Breakfast Consumed: 100 Mental Status Exam During interview pt is: alert and oriented Appearance: appropriately groomed Eye contact is: fair Motor behavior is: no abnormal motor movements Speech: normal in rate, rhythm & volume Affect: depressed Mood is: depressed Thought process: clear, coherent Thought content: reality based without delusions Suicidal thought are: denied Homicidal thoughts are: denied Hallucinations: denies auditory, denies visual Cognition: memory grossly intact, attention grossly intact, language grossly intact Intelligence estimated to be: consistent with level of education Insight: poor Judgement: poor Impression 56 yo female with a history of depressive disorder and ETOH abuse presents having made suicidal statements while intoxicated. 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 Plan (1) Major depressive disorder, recurrent episode 01/27 --The patient is admitted to [facility] ([facility] mental health unit ) on q 15 min checks (behavioral with suicide precautions) for safety. The patient will participate in group, recreational and milieu therapies and will be offered additional individual and family sessions as clinically appropriate. --restart Cymbalta, assess willingness to titrate. 01/28 --agreeable to titrate Cymbalta to 60 mg and resume Revia. (2) Alcohol use disorder 01/27 --Brief intervention was reviewed, Intervention (if performed) was [greater than 5] min in length. Brief interventions include: 1. Assess Readiness to Quit, 2. Advise: Help Patient to Reduce or Abstain from Alcohol, 3. Agree: Set Specific, Feasible Goals, 4. Assist: Anticipate barriers, Problem-Solving Solutions. Social work to 5. Arrange: Referrals to appropriate treatment. Summary of intervention: The patient reports she won't drink anymore but is unable to provide clear recovery plan. She is refusing rehab and IOP given perseveration on return to work thus she is effectively precontemplation stage with regards to transtheoretical model of change. The patient is advised to decrease alcohol consumption due to depressant effects and risk of interactions with prescription medications. The patient will be provided with recovery materials to continue to education self on how to cope with their condition without drinking and will continue on withdrawal protocol monitor upon transition to unit. Visit Code E&M Code: 74683 Inventory Assets Strengths: intelligence, established practice Needs: substance use disorder treatment Risk Factors Assessment : Yes /single/: Yes Higher / Fall in social status: Yes Mental Health Diagnoses: Yes Substance use disorders: Yes Previous attempt: No Previous psychiatric stay: Yes Protective Factors Assessment Employed: Yes Data Vital Signs Last 24 Hrs: Date Time Temp Pulse Resp B/P (MAP) Pulse Ox O2 Delivery O2 Flow Rate FiO2 01/28/17 08:58 36.9 73 16 143/97 01/28/17 06:38 36.9 73 16 154/100 143/97 01/27/17 20:04 37.0 80 16 114/72 01/27/17 18:59 37.0 80 16 114/72 Meds Administered Last 24 Hrs: Meds Administered (Past 24Hrs) Medications (Trade) Dose Ordered Sig/Amauri Route Start Time Stop Time Status Last Admin Dose Admin Ibuprofen (Advil Tab) 400 mg QID PRN PO 01/27/17 17:00 02/26/17 16:59 01/28/17 08:04 400 MG Vitamin B Complex (Vitamin B Complex) 1 tab DAILY PO 01/28/17 09:00 02/27/17 08:59 01/28/17 10:13 1 TAB Cholecalciferol (Vitamin D Tab) 1,000 inter.unit DAILY PO 01/28/17 09:00 02/27/17 08:59 01/28/17 10:14 1,000 INTER.UNIT Clonidine HCl (Catapres Tab) 0.1 mg BID PO 01/27/17 22:00 01/28/17 11:09 DC 01/28/17 10:12 0.1 MG Duloxetine HCl (Cymbalta Cap) 30 mg DAILY PO 01/28/17 09:00 01/28/17 11:09 DC 01/28/17 10:13 30 MG Folic Acid (Folvite Tab) 1 mg DAILY PO 01/28/17 09:00 02/27/17 08:59 01/28/17 10:13 1 MG Ibuprofen (Advil Tab) 400 mg HS PO 01/27/17 22:00 02/26/17 21:59 01/27/17 20:12 400 MG Multivitamins/ Minerals (Multivitamin W/ Minerals Tab) 1 tab DAILY PO 01/28/17 09:00 02/27/17 08:59 01/28/17 10:13 1 TAB Thiamine HCl (Vitamin B-1 Tab) 100 mg DAILY PO 01/28/17 09:00 02/27/17 08:59 01/28/17 10:14 100 MG Ferrous Sulfate (Feosol Tab) 325 mg DAILY PO 01/28/17 09:00 02/27/17 08:59 01/28/17 10:13 325 MG Fish Oil ([place]-3 (Purified Fish Oil) Cap) 1 gm DAILY PO 01/28/17 09:00 02/27/17 08:59 01/28/17 10:13 1 GM Magnesium Oxide (Mag-Ox Tab) 400 mg DAILY PO 01/28/17 09:00 02/27/17 08:59 01/28/17 10:13 400 MG Gabapentin (Neurontin Tab) 600 mg HS PO 01/27/17 22:00 01/27/17 22:01 DC 01/27/17 22:09 600 MG Naltrexone HCl (Naltrexone) 50 mg TODAY@1130 ONCE PO 01/28/17 11:30 01/28/17 11:31 DC 01/28/17 12:21 50 MG Lab Results Last 24 Hrs: Last 24 Hours Test 01/28/17 08:10 Sodium Level 138 mmol/L Potassium Level 3.8 mmol/L Chloride Level 104 mmol/L Carbon Dioxide Level 25 mmol/L Anion Gap 9.0 mmol/L Calcium Level 8.7 mg/dl Phosphorus Level 4.6 mg/dl Magnesium Level 2.3 mg/dl Total Bilirubin 1.2 mg/dl Direct Bilirubin 0.4 mg/dl Aspartate Amino Transf (AST/SGOT) 93 U/L Alanine Aminotransferase (ALT/SGPT) 96 U/L Alkaline Phosphatase 103 U/L Total Protein 7.0 gm/dl Albumin 3.9 gm/dl Triglycerides Level 60 mg/dl Cholesterol Level 208 mg/dl HDL Cholesterol 113 mg/dl LDL Cholesterol, Calculated 83 mg/dl VLDL Cholesterol, Calculated 12 mg/dl Cholesterol/HDL Ratio 1.8
[2017-01-28 13:57] VITALS: BP 126/84; PULSE 82; TEMP 36.6
[2017-01-28 16:36] VITALS: BP 158/98; PULSE 64; TEMP 36.9
[2017-01-28 20:09] VITALS: BP 152/103; PULSE 71; TEMP 36.8
[2017-01-28] MEDS: CLONIDINE HCL 0.1 MG TAB PO PRN (20:17)
[2017-01-28 21:54] VITALS: BP 115/76; PULSE 77
[2017-01-28] MEDS: IBUPROFEN 200 MG TAB PO SCH (21:59)
[2017-01-28] MEDS: GABAPENTIN 300 MG CAP PO SCH (21:59)
[2017-01-28] MEDS: TRAZODONE HCL 100 MG TAB PO SCH (21:59)
[2017-01-29 06:49] VITALS: BP_SYST 138; BP_SYST 153; BP_DIAS 100; BP_DIAS 95; PULSE 71; PULSE 77; TEMP 36.6
[2017-01-29 08:48] VITALS: BP 138/95; PULSE 71; TEMP 36.6
[2017-01-29] MEDS ORDERED: DULOXETINE (CYMBALTA) 30 MG CAP PO ONE (09:00)
[2017-01-29] MEDS: MAGNESIUM OXIDE 400 MG TAB PO SCH (09:01)
[2017-01-29] MEDS: FERROUS SULFATE 325 MG TAB PO SCH (09:01)
[2017-01-29] MEDS: VITAMIN B COMPLEX TAB PO SCH (09:02)
[2017-01-29] MEDS: CEROVITE ADV FORMULA TAB PO SCH (09:02)
[2017-01-29] MEDS: THIAMINE HCL 100 MG TAB PO SCH (09:02)
[2017-01-29] MEDS: CHOLECALCIFEROL 1000 INTER.UNIT TAB PO SCH (09:02)
[2017-01-29] MEDS: OMEGA-3 (PURIFIED FISH OIL) 1 GM CAP PO SCH (09:02)
[2017-01-29] MEDS: NALTREXONE HCL 50 MG TAB PO SCH (09:02)
[2017-01-29] MEDS: DULOXETINE HCL 60 MG CAP PO SCH (09:30)
[2017-01-29] MEDS: IBUPROFEN 200 MG TAB PO PRN (09:37)
--- NOTE | 2017-01-29 12:48 | Psychiatric Progress Notes ---
Progress Note Date of Service Jan 29, 2017. Interval History 56 yo female admit on 201 on transfer from the med floor for SI and ETOH intoxication (NAMAN >400). Chief Complaint "I woke up with a hangover". Subjective Patient was seen & assessed interval progress reviewed with Treatment Team. Staff report she attended programming yesterday and talked about feeling "humiliated" for being hospitalized. 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 She has been focused on discharge, wanting to get back to work as soon as possible. She has been hypertensive, for which she receives clonidine. She remains on the gabapentin taper for alcohol withdrawal, and has not required lorazepam. Today, she reports she was " alright until I took that trazodone, woke up with a hangover." She says her mood is "good" and she doesn't think she needs to be here. She says "I don't need to be here, need to work, I have no fucking money." She says she "just needs to stay away from alcohol," and her plan to do that is "just stay away." She says she had been taking naltrexone "but apparently that doesn't work." She wants Antabuse "so if I decide to take alcohol, I'll get violently ill." She denies suicidal thoughts, but made comments to staff yesterday that she was " already" because of all of the stresses in her life. She complains about the lack of outpatient treatment providers, "I don't want any [place], [place] or [place]." She wants "someone who has been there and done that, has a good reputation." She says she refused to fill out paperwork ahead of time to get an appointment, saying she wants to meet the person first, then fill out the paperwork if she likes them. She says the mental health system is "terrible," and she is not happy with the locally available options for treatment. She says [facility], but was angry when they told her the cost of seeing the psychiatrist, and says she refuses to ay that much. She reports good support from a couple friends and her nurse, and is willing to have a family meeting prior to discharge. 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 Sleep Information Total Hours of Sleep: 7.25 Meal Information Percent of Breakfast Consumed: 100 Percent of Lunch Consumed: 100 Percent of Dinner Consumed: 90 Mental Status Exam During interview pt is: alert and oriented, uncooperative, guarded Appearance: appropriately groomed Eye contact is: fair Motor behavior is: steady gait & station, no abnormal motor movements Speech: normal in rate, rhythm & volume (angry tone) Affect: irritable, angry Mood is: other ("cranky") Thought process: goal directed Thought content: reality based without delusions Suicidal thought are: denied Homicidal thoughts are: denied Hallucinations: denies auditory, denies visual Cognition: memory grossly intact, attention grossly intact, language grossly intact Intelligence estimated to be: consistent with level of education Insight: poor Judgement: poor Impression 56 yo female with a history of depressive disorder and alcohol abuse and withdrawal who was admitted voluntarily from the medical floor after she presented with suicidal ideation and said she was trying to drink herself to . She was treated for alcohol withdrawal and transferred to the [facility] voluntarily. 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 Plan (1) Major depressive disorder, recurrent episode 01/27 --The patient is admitted to [facility] ([facility] unit ) on q 15 min checks (behavioral with suicide precautions) for safety. The patient will participate in group, recreational and milieu therapies and will be offered additional individual and family sessions as clinically appropriate. --restart Cymbalta, assess willingness to titrate. 01/28 --agreeable to titrate Cymbalta to 60 mg and resume Revia. 01/29 -- continue current medications. Arrange family meeting. Refer for outpatient mental health follow-up. (2) Alcohol use disorder 01/27 --Brief intervention was reviewed, Intervention (if performed) was [greater than 5] min in length. Brief interventions include: 1. Assess Readiness to Quit, 2. Advise: Help Patient to Reduce or Abstain from Alcohol, 3. Agree: Set Specific, Feasible Goals, 4. Assist: Anticipate barriers, Problem-Solving Solutions. Social work to 5. Arrange: Referrals to appropriate treatment. Summary of intervention: The patient reports she won't drink anymore but is unable to provide clear recovery plan. She is refusing rehab and IOP given perseveration on return to work thus she is effectively precontemplation stage with regards to transtheoretical model of change. The patient is advised to decrease alcohol consumption due to depressant effects and risk of interactions with prescription medications. The patient will be provided with recovery materials to continue to education self on how to cope with their condition without drinking and will continue on withdrawal protocol monitor upon transition to unit. 01/29 - continue gabapentin taper for alcohol withdrawal. Patient states she wants to abstain from alcohol, but has not yet developed much of a plan to assist with this. She has refused recommendations for inpatient rehabilitation , but is willing to consider outpatient treatment, although she has many complaints about the available options. Discharge / Aftercare Planning Primary Care Physician: Name: none Therapist: Name: none currently, has seen Shonna Galvan in the past Visit Code E&M Code: 31545 Inventory Assets Strengths: intelligence, established practice Needs: substance use disorder treatment Risk Factors Assessment : Yes /single/: Yes Higher / Fall in social status: Yes Mental Health Diagnoses: Yes Substance use disorders: Yes Previous attempt: No Previous psychiatric stay: Yes Protective Factors Assessment Employed: Yes Data Vital Signs Last 24 Hrs: Date Time Temp Pulse Resp B/P (MAP) Pulse Ox O2 Delivery O2 Flow Rate FiO2 01/29/17 08:48 36.6 71 16 138/95 01/29/17 06:49 36.6 71 16 153/100 77 138/95 01/28/17 21:54 77 12 115/76 01/28/17 20:09 36.8 71 14 152/103 01/28/17 16:36 36.9 64 14 158/98 01/28/17 13:57 36.6 82 16 126/84 Meds Administered Last 24 Hrs: Meds Administered (Past 24Hrs) Medications (Trade) Dose Ordered Sig/Amauri Route Start Time Stop Time Status Last Admin Dose Admin Ibuprofen (Advil Tab) 400 mg QID PRN PO 01/27/17 17:00 02/26/17 16:59 01/29/17 09:37 400 MG Vitamin B Complex (Vitamin B Complex) 1 tab DAILY PO 01/28/17 09:00 02/27/17 08:59 01/29/17 09:02 1 TAB Cholecalciferol (Vitamin D Tab) 1,000 inter.unit DAILY PO 01/28/17 09:00 02/27/17 08:59 01/29/17 09:02 1,000 INTER.UNIT Clonidine HCl (Catapres Tab) 0.1 mg BID PO 01/27/17 22:00 01/28/17 11:09 DC 01/28/17 10:12 0.1 MG Duloxetine HCl (Cymbalta Cap) 30 mg DAILY PO 01/28/17 09:00 01/28/17 11:09 DC 01/28/17 10:13 30 MG Folic Acid (Folvite Tab) 1 mg DAILY PO 01/28/17 09:00 02/27/17 08:59 01/29/17 09:01 1 MG Ibuprofen (Advil Tab) 400 mg HS PO 01/27/17 22:00 02/26/17 21:59 01/28/17 21:59 400 MG Multivitamins/ Minerals (Multivitamin W/ Minerals Tab) 1 tab DAILY PO 01/28/17 09:00 02/27/17 08:59 01/29/17 09:02 1 TAB Thiamine HCl (Vitamin B-1 Tab) 100 mg DAILY PO 01/28/17 09:00 02/27/17 08:59 01/29/17 09:02 100 MG Ferrous Sulfate (Feosol Tab) 325 mg DAILY PO 01/28/17 09:00 02/27/17 08:59 01/29/17 09:01 325 MG Fish Oil ([place]-3 (Purified Fish Oil) Cap) 1 gm DAILY PO 01/28/17 09:00 02/27/17 08:59 01/29/17 09:02 1 GM Magnesium Oxide (Mag-Ox Tab) 400 mg DAILY PO 01/28/17 09:00 02/27/17 08:59 01/29/17 09:01 400 MG Gabapentin (Neurontin Tab) 600 mg HS PO 01/27/17 22:00 01/27/17 22:01 DC 01/27/17 22:09 600 MG Clonidine HCl (Catapres Tab) 0.1 mg BID PRN PO 01/28/17 22:00 02/26/17 21:59 01/28/17 20:17 0.1 MG Gabapentin (Neurontin Cap) 300 mg HS PO 01/28/17 22:00 01/30/17 21:59 01/28/17 21:59 300 MG Trazodone HCl (Desyrel Tab) 100 mg HS PO 01/28/17 22:00 02/27/17 21:59 01/28/17 21:59 100 MG Duloxetine HCl (Cymbalta Cap) 60 mg QAM PO 01/29/17 09:00 02/28/17 08:59 01/29/17 09:30 60 MG Naltrexone HCl (Naltrexone) 50 mg DAILY PO 01/29/17 09:00 02/28/17 08:59 01/29/17 09:02 50 MG Naltrexone HCl (Naltrexone) 50 mg TODAY@1130 ONCE PO 01/28/17 11:30 01/28/17 11:31 DC 01/28/17 12:21 50 MG
[2017-01-29 13:46] VITALS: BP 147/85; PULSE 85
[2017-01-29] MEDS: CLONIDINE HCL 0.1 MG TAB PO PRN (15:54)
[2017-01-29 16:03] VITALS: BP 171/107; PULSE 87; TEMP 36.6
[2017-01-29 20:33] VITALS: BP 154/98; PULSE 72; TEMP 36.6
[2017-01-29] MEDS: TRAZODONE HCL 100 MG TAB PO SCH (21:13)
[2017-01-29] MEDS: IBUPROFEN 200 MG TAB PO SCH (21:14)
[2017-01-29] MEDS: GABAPENTIN 300 MG CAP PO SCH (21:14)
[2017-01-29] MEDS ORDERED: NURSING VERBAL MED ORDER ONE (23:45)
[2017-01-29] MEDS ORDERED: TRAZODONE HCL 50 MG TAB PO PRN (23:45)
[2017-01-30 06:47] VITALS: BP_SYST 151; BP_SYST 152; BP_DIAS 101; BP_DIAS 90; PULSE 70; PULSE 83; TEMP 36.8
[2017-01-30] MEDS: OMEGA-3 (PURIFIED FISH OIL) 1 GM CAP PO SCH (08:54)
[2017-01-30] MEDS: CEROVITE ADV FORMULA TAB PO SCH (08:54)
[2017-01-30] MEDS: DULOXETINE HCL 60 MG CAP PO SCH (08:54)
[2017-01-30] MEDS: CHOLECALCIFEROL 1000 INTER.UNIT TAB PO SCH (08:54)
[2017-01-30] MEDS: FERROUS SULFATE 325 MG TAB PO SCH (08:54)
[2017-01-30] MEDS: NALTREXONE HCL 50 MG TAB PO SCH (08:54)
[2017-01-30] MEDS: MAGNESIUM OXIDE 400 MG TAB PO SCH (08:54)
[2017-01-30] MEDS: THIAMINE HCL 100 MG TAB PO SCH (08:54)
[2017-01-30] MEDS: VITAMIN B COMPLEX TAB PO SCH (08:54)
[2017-01-30] MEDS: IBUPROFEN 200 MG TAB PO PRN (09:00)
[2017-01-30] MEDS ORDERED: DSY50 PO (10:27)
[2017-01-30] MEDS ORDERED: CYM60 PO (10:27)
--- NOTE | 2017-01-30 10:41 | Discharge Instructions ---
Discharge Information Report Includes Report will include the: Discharge Instructions & Summary Admission Admission Date / Time: Jan 27, 2017 at 16:21 Reason for Admission: Depression Discharge Discharge Diagnosis / Problem: Major Depressive Disorder, recurrent, severe, Alcohol use disorder Condition at Discharge: Fair Discharge Goals Goal(s): Decrease discomfort, Improve function, Increase independence, Improve disease control, Therapeutic intervention, Prevent Disease Progression Activity Recommendations Activity Limitations: per Instructions/Follow-up section Lifting Limitations: none Exercise/Sports Limitations: as tolerated . Instructions / Follow-Up Instructions / Follow-Up . SPECIAL CARE INSTRUCTIONS: 1. Follow through with your scheduled aftercare appointments. If unable to keep an appointment, please call to reschedule. 2. Take your medication only as prescribed. Medication should not be changed or stopped without the approval of your doctor. In the event of worsening symptoms or concerns about side effects, contact your doctor immediately. 3. Utilize new healthy coping skills, anger management skills, and stress management skills learned during your hospitalization. Journal feelings and process them with a support person. Identify stressors or situations that may result in relapse, deterioration or inappropriate behaviors and develop a plan to deal with those issues. 4. If your coping skills are ineffective and you are in crisis, contact your outpatient providers for direction. If unable to reach your providers, please call the CAN HELP LINE AT or go to the closest Emergency Room. 5. Avoid alcohol and un-prescribed drugs. 6. You have been provided with the Mental Health Advance Directives Pamphlet for your review. AFTERCARE APPOINTMENTS: * Please call your insurance company prior to your scheduled appointment to confirm your aftercare providers are covered. Take your insurance information to your appointments. . Discharge / Aftercare Planning Primary Care Physician: Name: Danita Daniel PA-C Psychiatrist: Name: Dr. Smart Therapist: Name Of Therapist: Karthik (Judi) Date of Appointment: Jan 31, 2017 Time of Appointment: 4:30pm . Follow-Up Care Plan for Follow-Up Care: per instructions. Appointment with Karthik 01/31/2017 Call Shonna Galvan Psychiatrist Current Hospital Diet Patient's current hospital diet: Vegetarian Diet Discharge Diet Recommended Diet: Vegetarian Diet Procedures Procedures Performed: No Pending Studies Pending Studies at Discharge: No Medical Emergencies . Who to Call and When: Medical Emergencies: For questions or emergencies related to your hospital stay, please contact the Inpatient Behavioral Health Unit at [phone]. A cylinder worker is on-call 19/03 for the Behavioral Health Unit for emergencies At any time you feel your situation is an emergency, you may also call 911 immediately. . Non-Emergent Contact Non-Emergency issues call your: Primary Care Provider, Therapist Advance Directives Do You Have an Existing Mental: No Existing Living Will: Yes Existing Power of Watch Mechanic: No The Person Making Decisions: unknown Advance Directives Info Given: To Pt/S.O. Advance Directives Reason: Declines as Mental Health Visit. Discharge Summary Admission HPI Per the Admitting provider: Ida admits that she has been feeling down lately and although she doesn't drink everyday, in days leading up to admission she would drink vodka straight from the bottle. She doesn't measure her use but estimated 3-4 inches a day. She has a history of gastric bypass and states that "it really hits me sometimes ". She expressed that she wished she had never shared her problems with her nurse at her podiatry office. She admits that she made statements about drinking herself to on several occasions although she denies suicidal thoughts currently. Just prior to admission she had used an old rx of Ativan 1 mg tabs (last filled 2015) and Vistaril after which she clearly describes an anticholinergic and/or withdrawal delirium where she was in a dream-like state and was picking at the air. Upon presentation to the ED her NAMAN was >400, likely due to 1/2 L of vodka. She was combative in ED while intoxicated and received Haldol and Ativan prns. 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 Stressors include ongoing financial problems which she states started after her partner of 26 years left her several years ago. 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 When presented with options re: psych admission she started yelling in anger and in a controlled fashion hit her head on the window of her hospital room 4-5 times. She demanded provider leave and in fact rushed at the door to slam it. She was pressured on the phone and proceeded to throw papers about her room. She ultimately calmed down without intervention of security (though they were called initially as standby) and signed 201. She was not particularly amenable to discussing vegetative symptoms of depression and mainly complained about lack of availability of psychiatric providers in the community. Admission Exam Per the Admitting provider: See History and Physical Hospital Course (1) Major depressive disorder, recurrent episode 01/27 --The patient is admitted to [facility] ) on q 15 min checks (behavioral with suicide precautions) for safety. The patient will participate in group, recreational and milieu therapies and will be offered additional individual and family sessions as clinically appropriate. --restart Cymbalta, assess willingness to titrate. 01/28 --agreeable to titrate Cymbalta to 60 mg and resume Revia. 01/29 -- continue current medications. Arrange family meeting. Refer for outpatient mental health follow-up. 01/30 Family meeting with patient's main support Marian who also works for patient held yesterday. Verified no access to guns and she will provide transportation when patient's license suspended. Continue Cymbalta 60 mg daily. Trazodone as needed for sleep. (2) Alcohol use disorder 01/27 --Brief intervention was reviewed, Intervention (if performed) was [greater than 5] min in length. Brief interventions include: 1. Assess Readiness to Quit, 2. Advise: Help Patient to Reduce or Abstain from Alcohol, 3. Agree: Set Specific, Feasible Goals, 4. Assist: Anticipate barriers, Problem-Solving Solutions. Social work to 5. Arrange: Referrals to appropriate treatment. Summary of intervention: The patient reports she won't drink anymore but is unable to provide clear recovery plan. She is refusing rehab and IOP given perseveration on return to work thus she is effectively precontemplation stage with regards to transtheoretical model of change. The patient is advised to decrease alcohol consumption due to depressant effects and risk of interactions with prescription medications. The patient will be provided with recovery materials to continue to education self on how to cope with their condition without drinking and will continue on withdrawal protocol monitor upon transition to unit. 01/29 - continue gabapentin taper for alcohol withdrawal. Patient states she wants to abstain from alcohol, but has not yet developed much of a plan to assist with this. She has refused recommendations for inpatient rehabilitation , but is willing to consider outpatient treatment, although she has many complaints about the available options. 01/30 Brief intervention was reviewed, Intervention (if performed) was [greater than 5] min in length. Brief interventions include: 1. Assess Readiness to Quit, 2. Advise: Help Patient to Reduce or Abstain from Alcohol, 3. Agree: Set Specific, Feasible Goals, 4. Assist: Anticipate barriers, Problem-Solving Solutions. Social work to 5. Arrange: Referrals to appropriate treatment. verbalizes willingness to go to outpatient substance abuse treatment; patient understands that our recommendation continues to be inpatient treatment but she continues to refuse. Patient will continue home dose of Naltrexone. Risk Factors Assessment : Yes /single/: Yes Higher / Fall in social status: Yes Mental Health Diagnoses: Yes Substance use disorders: Yes Previous attempt: No Previous psychiatric stay: Yes Protective Factors Assessment Employed: Yes Stable relationships: Yes Absence of risk factors above: Yes (Patient cooperative with treatment and programming. She has worked on her coping skills and developed a safety plan. Whe have addresses her substance abuse and she is willing to partcitpate in outpatient treatmenat and voices intention to follow throught with the appointment at [facility] tomorrow. She is improved over admission and is denying sucidal thoughts, intention or plan. ) Day of Discharge Assessment Patient seen and assessed and reviewed with nursing. Patient is denying suicidality. 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 She is willing to go to outpatient substance abuse treatment. Her therapist, Shonna Galvan is wiling to see her again. She agrees to follow up with outpatient psychiatrist. She is self pay and continues to indicate that she does not plan to get insurance and so this will be an ongoing problem. She is forward thinking and make future plans including a trip to [place] in march that has been partial financed by a close friend who is a retire [employer] professor. She is alert and oriented. She is adequately groomed. Motor behavior is unremarkable. Speech is normal, rate, rhythm with increased volume. Thought process are without evidence of hallucinations or delusions. She is somewhat tangential and circumstantial. She denies any suicidal thoughts intention or plan or thoughts of harming others. She is voicing desire and readiness for discharge. We have assisted the patient in finding outpatient providers. Her Cymbalta has been increased to target mood and anxiety. She has slept better with low dose Trazodone. Patient understands that we recommend discontinuing bedtime Tylenol migraine due to elevated liver enzymes and caffeine content of this medication. She agrees to stop using Tylenol. She is improved over admission deemed to be ready for the next lower level of care which is outpatient and so discharge is ordered by Dr. Roxana Mercado. Laboratory Test 01/28/17 08:10 Sodium Level 138 Potassium Level 3.8 Chloride Level 104 Carbon Dioxide Level 25 Anion Gap 9.0 Calcium Level 8.7 Phosphorus Level 4.6 Magnesium Level 2.3 Total Bilirubin 1.2 Direct Bilirubin 0.4 Aspartate Amino Transferase (AST) 93 Alanine Aminotransferase (ALT) 96 Alkaline Phosphatase 103 Total Protein 7.0 Albumin 3.9 Triglycerides Level 60 Cholesterol Level 208 HDL Cholesterol 113 LDL Cholesterol, Calculated 83 VLDL Cholesterol, Calculated 12 Cholesterol/HDL Ratio 1.8 Total Time Total Time Spent (min): Greater than 30 minutes Total Time Included: examination of the patient, discharge planning, medication reconciliation Tobacco Cessation at Discharge Smoking Status: Never Smoker FDA approved Prescription: non-smoker
[2017-01-30 10:54] VITALS: BP 171/111; PULSE 89; TEMP 36.9
[2017-01-30] MEDS: CLONIDINE HCL 0.1 MG TAB PO PRN (10:54)
[2017-01-30 12:12] VITALS: BP 173/109; PULSE 64; TEMP 36.5
[2017-01-30 13:30] VITALS: BP 127/79; PULSE 84
--- NOTE | 2017-02-01 14:50 | Psych Management Progress Note ---
Psychiatry Miscellaneous Date of Service: Feb 01, 2017. case reviewed as community relations coordinator as complex decision making involved in discharge. 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 and I confirmed with Dr. 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. Patient exhibits features of personality disorder but when not intoxicated was without any evidence of psychosis or juan. There initially was discussion about inpatient substance abuse treatment but she declined; typically indications for rehab include failure of outpatient services and her need to support self was also a consideration. Her nurse at her podiatry office was involved in a session with social work prior to discharge and voiced no concerns about care provided at the office. It is my understanding that she was supportive of patient and that ETOH use was in evenings which was consistent with the patients report. The patient was agreeing to abstain from alcohol and of course continues involvement with oversight from her licensing board and probation. A risk factor upon admission included her concern about a hearing that was actually postponed to March and she was future focussed with regards to a trip to [place] prior to that. She consistently denied suicidal thoughts prior to discharge and she was agreeable to recommended follow-up which included outpatient therapy (previous positive relationship with Shonna Galvan) and substance abuse treatment (initial appointment with period was day after discharge) as well as a psychiatry appointment. She agreed to abstain from ETOH and this was a condition of her returning to care with her former therapist which the patient definitely wanted. Her friend/nurse was also going to be living with patient for support and safety plan was reviewed by both.
== END 2017-01-30 16:05 | disposition home or self-care (01) | DRG 885 ==
LOC: C.MHU 16:21 → UNDOADMIN 16:30 → C.MHU 16:30
PROVIDERS: ADMIT Psychiatry & Neurology Child & Adolescent Psychiatry; ATTEND Psychiatry & Neurology Child & Adolescent Psychiatry
DX: F33.2 Major depressive disorder, recurrent severe without psychotic features (principal); F10.239 Alcohol dependence with withdrawal, unspecified; R45.851 Suicidal ideations; F10.229 Alcohol dependence with intoxication, unspecified; Z79.899 Other long term (current) drug therapy; Z79.1 Long term (current) use of non-steroidal anti-inflammatories (NSAID); Z81.8 Family history of other mental and behavioral disorders; Z59.9 Problem related to housing and economic circumstances, unspecified

== ENCOUNTER → 2017-02-07 | Outpatient (CLI) | payer OTHER ==
[~2017-02-07] MED LIST changes: -COEN100C11 PO; -CYM/30 PO; +CYM60 PO; +DSY50 PO; -FERR325T51 PO; +NALT50TA16 PO; +PROP10TA7 PO; -TYLENOL MIGRAINE PO; -VITACAP26 PO
== END | disposition home or self-care (01) ==
LOC: C.LAB 00:48
DX: Z02.83 Encounter for blood-alcohol and blood-drug test (principal)

== ENCOUNTER 2017-05-28 22:38 | Emergency (ER) | payer OTHER ==
[~2017-05-28] VITALS: Ht 162.6 cm; Wt 47.2 kg
[~2017-05-28 22:38] MED LIST changes: -PROP10TA7 PO
[2017-05-28 22:39] VITALS: TEMP 36.8; Ht 162.6 cm; Wt 47.2 kg
[2017-05-28] MEDS ORDERED: ONDANSETRON INJ 2 MG/ML 2 ML VIAL IV STA (22:53)
[2017-05-28] MEDS ORDERED: SODIUM CHLORIDE 0.9% 1000ML 1,000 ML IV STA (22:53)
[2017-05-28] MEDS ORDERED: OPTIRAY 320 IV PRN (23:00)
[2017-05-28] MEDS ORDERED: LORAZEPAM 2 MG/ML 1 ML VIAL IV STA (23:04)
[2017-05-28] MEDS ORDERED: HALOPERIDOL LACTATE 5 MG/ML 1 ML VIAL IV STA (23:04)
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
[2017-05-28] MEDS ORDERED: PROP10TA7 PO (23:22)
[2017-05-28 23:28] LABS: BASO ABS # 0.17 K/uL (0-0.2); COMPLETE YES; EOS % 0.9 %; HEMATOCRIT 43.2 % (37-47); IG% 0.4 %; LYMPH % 34.6 %; LYMPH ABS # 1.97 K/uL (1.2-3.4); MEAN CELL VOLUME 95.2 fL (80-100); MEAN CORPUSCULAR HEMOGLOBIN 31.5 pg (25-34); MEAN CORPUSCULAR HGB CONC 33.1 g/dl (32-36); MONO % 9.3 %; NEUT % 51.8 %; PLATELET COUNT 361 K/uL (130-400); RED BLOOD COUNT 4.54 M/uL (4.2-5.4)
[2017-05-28 23:38] LABS: INR 0.9 (0.9-1.1); PARTIAL THROMBOPLASTIN RATIO 1.1; PROTHROMBIN TIME (PATIENT) 9.8 SECONDS (9.0-12.0)
[2017-05-28 23:54] LABS: ALT/SGPT 121 U/L (12-78); BLOOD UREA NITROGEN 17 mg/dl (7-18); BUN/CREATININE RATIO 31.3 (10-20); CARBON DIOXIDE 22 mmol/L (21-32); CHLORIDE 109 mmol/L (98-107); CREATININE 0.55 mg/dl (0.60-1.20); GLUCOSE 97 mg/dl (70-99); POTASSIUM 3.7 mmol/L (3.5-5.1); SODIUM 143 mmol/L (136-145)
[2017-05-29 00:05] LABS: ALKALINE PHOSPHATASE 99 U/L (45-117); AST/SGOT 45 U/L (15-37)
[2017-05-29 00:17] LABS: ISTAT CREATININE 0.9 mg/dl (0.6-1.3); ISTAT HEMOGLOBIN 13.6 g/dl (12.0-16.0); ISTAT IONIZED CALCIUM 1.04 mmol/l (1.12-1.32)
[2017-05-29 01:30] VITALS: O2SAT 98
[2017-05-29 02:35] LABS: URINE APPEARANCE CLOUDY (CLEAR); URINE BILIRUBIN NEG (NEG); URINE COLOR YELLOW; URINE EPITHELIAL CELL AUTO >30 /lpf (0-5); URINE NITRITE NEG (NEG); URINE SPECIFIC GRAVITY > 1.045 (1.000-1.030); UROBILINOGEN NEG (NEG)
[2017-05-29 02:53] LABS: BENZODIAZEPINE, URINE NEG (NEG); COCAINE,URINE NEG (NEG); PHENCYCLIDINE, URINE NEG (NEG)
[2017-05-29 02:56] LABS: MANUAL MICROSCOPIC REQUIRED? NO; PREG INTERNAL NEGATIVE QC NEG CLEAR BACKGROUND; PREG INTERNAL POSITIVE QC POS CONTROL LINE; REVIEW REQ? YES
--- NOTE | 2017-05-29 06:47 | EMERGENCY ROOM VISIT NOTE ---
ED Visit Note First contact with patient: 01:28 I received this patient at change of shift from Dr. Pringle, pending a more sober state and mental health evaluation. The patient slept through the night. She was given her duloxetine 60 mg in the morning. Case was signed out to Dr. Hollingsworth pending mental health evaluation. Please see his notes for final disposition.
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
[2017-05-29] MEDS ORDERED: DULOXETINE HCL 60 MG CAP PO SCH (09:00)
--- NOTE | 2017-05-29 13:05 | EMERGENCY ROOM VISIT NOTE ---
ED Visit Note First contact with patient: 07:16 I assumed care at the change of shift, Dr. Mendosa had been the physician prior to me. The patient had presented intoxicated with alcohol. She had made suicidal comments. She was felt medically clear at around 7 or 8 AM. She was assessed by the psychiatry services. She had a history that was concerning for suicidality. She was not felt safe for discharge home. I did speak to the patient at length. She has agreed to sign herself into the hospital voluntarily for psychiatric care. A bed search was performed and the patient is being sent to [facility] for her psychiatric stay. The paperwork for transport was completed.
[2017-05-29 14:19] VITALS: BP 159/88; PULSE 95; O2SAT 96
== END 2017-05-29 14:21 ==
LOC: C.EDB 22:39 → C.EDA 05-29 14:21
DX: F10.920 Alcohol use, unspecified with intoxication, uncomplicated (principal); S00.83XA Contusion of other part of head, initial encounter; V89.2XXA Person injured in unspecified motor-vehicle accident, traffic, initial encounter; J45.909 Unspecified asthma, uncomplicated; F32.9 Major depressive disorder, single episode, unspecified; Z79.899 Other long term (current) drug therapy; R45.851 Suicidal ideations; Y90.8 Blood alcohol level of 240 mg/100 ml or more

== ENCOUNTER → 2017-05-28 | Outpatient (CLI) | payer OTHER ==
[~2017-05-28] MED LIST changes: -NALT50TA16 PO; +NLT50 PO
== END | disposition home or self-care (01) ==
LOC: C.LAB 21:38
DX: Z02.83 Encounter for blood-alcohol and blood-drug test (principal)

== ENCOUNTER 2022-02-28 13:08 | Observation (INO) ==
[2022-02-28] MEDS ORDERED: SODIUM CHLORIDE 0.9% 1000ML 1,000 ML IV ONE (13:31)
--- NOTE | 2022-02-28 13:36 | Emergency Department Note ---
Impression & Plan Acute CVA (cerebrovascular accident), Syncope, Fall, Acute left-sided muscle weakness ED Provider Note NAME: HARJEET REYNOLDS AGE: 61 SEX: F : 1960 ARRIVES VIA: Walk-In INFORMANT: Patient ED PROVIDER(S): Parker Frausto DO CHIEF COMPLAINT: left sided weakness HPI: Patient is a 61-year-old female who presents the ER with a past medical history of depression and alcohol intoxication for left-sided weakness. She notes she went to sit down in a chair around 12 AM to 1 AM last night. She missed the chair and fell onto her left side. She does not remember anything after that. She was helped to bed. She denies any drugs or alcohol. She is complaining of left arm weakness as well as left leg weakness. She has trouble walking and feels unsteady. She does admit to hitting her head. She does believe she passed out. No dysuria, urgency, or frequency. No other exacerbating or remitting factors. ROS: See above HPI for pertinent positives & negatives. A total of 10 systems reviewed and were otherwise negative. PAST MEDICAL HISTORY:See Below PAST SURGICAL HISTORY:See Below FAMILY HISTORY:See Below SOCIAL HISTORY:See Below HOME MEDICATIONS:See Below ALLERGIES:See Below VITALS:See Below PHYSICAL EXAMINATION: GENERAL: Sitting up in bed, alert, well appearing, well nourished, no distress, non-toxic EYE EXAM: normal conjunctiva. PERRL and EOM's grossly intact. OROPHARYNX: no exudate, no erythema, lips, buccal mucosa, and tongue normal and mucous membranes are moist NECK: supple, no nuchal rigidity, no adenopathy, non-tender LUNGS: Clear to auscultation. Normal chest wall mechanics HEART: no murmurs, S1 normal and S2 normal ABDOMEN: abdomen soft, non-tender, normo-active bowel sounds, no masses, no rebound or guarding. UPPER EXTREMITIES: upper extremities are grossly normal. LOWER EXTREMITIES: No pitting edema. NEURO EXAM: Normal sensorium, cranial nerves II-XII intact, normal speech, face with assistant attorney general as well as flexion extension left elbow and shoulder. No weakness on the entire right side. Mild weakness with flexion extension of the left hip as well as flexion extension of the knee and ankle. Rapid alternating movements i ntact the right upper extremity. To perform rapid movements with the left upper extremity. [id number] intact. MEDICAL DECISION MAKING: Patient is a 61-year-old female who presents ER for above-stated complaint. Symptoms started last night around 12 the 1 AM. IV was established blood work was obtained. Labs show no significant leukocytosis or anemia. INR unremarka ble. BMP with LFTs bilirubin and troponin was unremarkable. UA was clean. Tox was positive for MDMA. Alcohol negative. COVID-negative. CT as well as angios of the head and neck were negative. Patient does have left-sided deficit but is out of the window for tPA. No large occlusion for intervention and she was discussed with her hospitalist admitted for further work-up. MRI confirms basal ganglia stroke. Triage Nursing notes reviewed. Limited review of prior medical records performed Vital Signs: reviewed and remarkable for HTN Differential diagnosis: Differential Diagnosis includes but is not limited to ischemic Stroke, hemorrhagic stroke, bells palsy, mass, neoplasm, migraine headache, seizure, subarachnoid hemorrhage, TIA, and transient global amnesia. ER treatment provided: See below Diagnostics interpreted by me: ECG: Sinus rhythm rate of 69 Normal axis No PVCs QTC 437 Septal Q waves Cardiac Monitoring: An order was placed for continuous cardiac monitoring. The monitor shows a rate of 80 with sinus rhythm. Laboratory studies: As stated above and show below. Imaging studies: CT as well as angios of the head and neck were negative Consultation(s): To the hospitalist for further evaluation Procedures: none Critical Care: None Past Med/Surg History Social History Smoking Status: Former smoker Tobacco Type: Cigarettes Feels Safe at Home: Yes Allergies Allergies Allergy/AdvReac Type Severity Reaction Status Date / Time hydroxyzine AdvReac Unknown DELIRIUM Verified 02/28/22 16:36 Home Meds Home Medications Medication Instructions Recorded Confirmed ascorbic acid (vitamin C) 250 mg 0 mg PO DAILY 02/28/22 02/28/22 tablet (Vitamin C) biotin 1 mg tablet 1 mg PO DAILY 02/28/22 02/28/22 bupropion HCl 300 mg 24 hr tablet, 300 mg PO DAILY 02/28/22 02/28/22 extended release calcium 250 mg tablet 600 mg PO DAILY 02/28/22 02/28/22 ferrous sulfate 325 mg (65 mg 325 mg PO DAILY 02/28/22 02/28/22 iron) tablet (iron) fluoxetine 40 mg capsule (Prozac) 40 mg PO DAILY 02/28/22 02/28/22 lamotrigine 100 mg tablet 300 mg PO DAILY 02/28/22 02/28/22 (Lamictal) lisinopril 10 mg tablet 10 mg PO DAILY PRN 02/28/22 02/28/22 magnesium 250 mg tablet 0 mg PO DAILY 02/28/22 02/28/22 multivitamin 1 tab PO DAILY 02/28/22 02/28/22 omega-3 fatty acids 1,000 mg PO DAILY 02/28/22 02/28/22 sertraline 100 mg tablet 150 mg PO DAILY 02/28/22 02/28/22 vitamin B complex 1 tab PO DAILY 02/28/22 02/28/22 Results & Data (ED) Vital Signs Vital Signs - 24 hr 02/28/22 13:09 02/28/22 13:16 02/28/22 13:39 Temperature 36.7 C Temperature Source Temporal Artery Scan Pulse Rate 76 69 Pulse Rate [Apical] 72 Pulse Rate from SpO2 Sensor Respiratory Rate 19 20 16 Respiratory Effort / Characteristics Non-Labored Spontaneous Non-Labored Respiratory Depth Normal Normal Blood Pressure 163/96 H Blood Pressure [Right Arm] 171/108 H Blood Pressure Mean 118 Blood Pressure Mean [Right Arm] 129 Blood Pressure Position Sitting Pulse Oximetry 98 96 Oxygen Delivery Method Room Air Room Air Sepsis Recent Fever Within 48 Hours No Sepsis New/Unexplained Change in Mental Status N/A Sepsis Action Taken by Nursing No Action Required 02/28/22 13:50 02/28/22 14:00 02/28/22 14:30 Temperature Temperature Source Pulse Rate 71 67 62 Pulse Rate [Apical] Pulse Rate from SpO2 Sensor 65 64 Respiratory Rate 19 19 20 Respiratory Effort / Characteristics Respiratory Depth Blood Pressure 171/108 H 177/95 H 175/93 H Blood Pressure [Right Arm] Blood Pressure Mean 129 122 120 Blood Pressure Mean [Right Arm] Blood Pressure Position Pulse Oximetry 97 96 Oxygen Delivery Method Sepsis Recent Fever Within 48 Hours Sepsis New/Unexplained Change in Mental Status Sepsis Action Taken by Nursing 02/28/22 15:00 02/28/22 15:03 02/28/22 15:30 Temperature Temperature Source Pulse Rate 72 72 Pulse Rate [Apical] 67 Pulse Rate from SpO2 Sensor 73 Respiratory Rate 21 20 20 Respiratory Effort / Characteristics Non-Labored Spontaneous Respiratory Depth Normal Blood Pressure 205/99 H 183/109 H Blood Pressure [Right Arm] 205/99 H Blood Pressure Mean 134 133 Blood Pressure Mean [Right Arm] 134 Blood Pressure Position Pulse Oximetry 99 96 Oxygen Delivery Method Sepsis Recent Fever Within 48 Hours Sepsis New/Unexplained Change in Mental Status Sepsis Action Taken by Nursing 02/28/22 16:00 02/28/22 16:30 02/28/22 17:00 Temperature Temperature Source Pulse Rate 63 69 65 Pulse Rate [Apical] Pulse Rate from SpO2 Sensor Respiratory Rate 20 22 18 Respiratory Effort / Characteristics Respiratory Depth Blood Pressure 174/100 H 179/105 H 168/99 H Blood Pressure [Right Arm] Blood Pressure Mean 124 129 122 Blood Pressure Mean [Right Arm] Blood Pressure Position Pulse Oximetry Oxygen Delivery Method Sepsis Recent Fever Within 48 Hours Sepsis New/Unexplained Change in Mental Status Sepsis Action Taken by Nursing Laboratory Data Result diagrams: 02/28/22 13:50 02/28/22 13:50 Lab Results 02/28/22 02/28/22 02/28/22 Range/Units 13:41 13:50 13:50 WBC 7.51 (4.8-10.8) K/uL RBC 4.42 (4.2-5.4) M/uL Hgb 14.0 (12.0-16.0) g/dL Hct 40.5 (37-47) % MCV 91.6 (80-100) fL MCH 31.7 (25-34) pg MCHC 34.6 (32-36) g/dL RDW Std Deviation 42.2 (36.4-46.3) fL RDW Coeff of Eugenie 12.5 (11.5-14.5) % Plt Count 279 (130-400) K/uL MPV 9.4 (7.4-10.4) fL Immature Gran % (Auto) 0.3 % Neut % (Auto) 68.3 % Lymph % (Auto) 21.3 % [place] % (Auto) 8.9 % Eos % (Auto) 0.8 % Baso % (Auto) 0.4 % Neut # (Auto) 5.13 (1.4-6.5) K/uL Lymph # (Auto) 1.60 (1.2-3.4) K/uL [place] # (Auto) 0.67 H (0.11-0.59) K/uL Eos # (Auto) 0.06 (0-0.5) K/uL Baso # (Auto) 0.03 (0-0.2) K/uL Immature Gran # (Auto) 0.02 (0.00-0.02) K/uL PT 10.0 (9.0-12.0) Seconds INR 0.9 (0.9-1.1) APTT 28.4 (21.0-31.0) Seconds PTT Ratio 1.0 Sodium (136-145) mmol/L Potassium (3.5-5.1) mmol/L Chloride (98-107) mmol/L Carbon Dioxide (21-32) mmol/L Anion Gap (3-11) BUN (6-23) mg/dl Creatinine (0.6-1.2) mg/dl Est Cr Clr Drug Dosing ml/min Est GFR ( Amer) ml/min Est GFR (Non-Af Amer) ml/min BUN/Creatinine Ratio (10-20) Glucose (70-99(Fasting)) mg/dl POC Glucose 98 (70-99) mg/dl Calcium (8.5-10.1) mg/dl Magnesium (1.7-2.4) mg/dl Total Bilirubin (0.2-1.0) mg/dl AST (13-39) U/L ALT (7-52) U/L Alkaline Phosphatase (34-104) U/L Troponin I High Sens (0-14) pg/ml Total Protein (6.0-8.3) gm/dl Albumin (3.4-5.0) gm/dl Globulin (2.5-4.0) gm/dl Albumin/Globulin Ratio (0.9-2) Urine Color Urine Appearance (Clear) Urine pH (4.5-7.5) Ur Specific [place] (1.000-1.030) Urine Protein (Negative) Urine Glucose (UA) (Negative) Urine Ketones (Negative) Urine Blood (Negative) Urine Nitrite (Negative) Urine Bilirubin (Negative) Urine Urobilinogen (Negative) Ur Leukocyte Esterase (Negative) Urine Opiates Screen (Neg) Ur Methadone, Qual (Neg) Urine Barbiturates (Neg) Ur Phencyclidine (PCP) (Neg) U Amphetamin/Meth Scrn (Neg) MDMA (Ecstasy) Screen (Neg) U Benzodiazepines Scrn (Neg) Ur Cocaine Metabolite (Neg) U Marijuana (THC) Screen (Neg) Ethyl Alcohol mg/dL (<10.0) mg/dl SARS-CoV-2, RNA, NAAT (NEGATIVE) 02/28/22 02/28/22 02/28/22 Range/Units 13:50 13:50 14:19 WBC (4.8-10.8) K/uL RBC (4.2-5.4) M/uL Hgb (12.0-16.0) g/dL Hct (37-47) % MCV (80-100) fL MCH (25-34) pg MCHC (32-36) g/dL RDW Std Deviation (36.4-46.3) fL RDW Coeff of Eugenie (11.5-14.5) % Plt Count (130-400) K/uL MPV (7.4-10.4) fL Immature Gran % (Auto) % Neut % (Auto) % Lymph % (Auto) % [place] % (Auto) % Eos % (Auto) % Baso % (Auto) % Neut # (Auto) (1.4-6.5) K/uL Lymph # (Auto) (1.2-3.4) K/uL [place] # (Auto) (0.11-0.59) K/uL Eos # (Auto) (0-0.5) K/uL Baso # (Auto) (0-0.2) K/uL Immature Gran # (Auto) (0.00-0.02) K/uL PT (9.0-12.0) Seconds INR (0.9-1.1) APTT (21.0-31.0) Seconds PTT Ratio Sodium 138 (136-145) mmol/L Potassium 3.9 (3.5-5.1) mmol/L Chloride 104 (98-107) mmol/L Carbon Dioxide 25 (21-32) mmol/L Anion Gap 9 (3-11) BUN 12 (6-23) mg/dl Creatinine 0.50 L (0.6-1.2) mg/dl Est Cr Clr Drug Dosing 101.3 ml/min Est GFR ( Amer) 119.4 ml/min Est GFR (Non-Af Amer) 103.0 ml/min BUN/Creatinine Ratio 24.0 H (10-20) Glucose 93 (70-99(Fasting)) mg/dl POC Glucose (70-99) mg/dl Calcium 9.4 (8.5-10.1) mg/dl Magnesium 2.0 (1.7-2.4) mg/dl Total Bilirubin 0.8 (0.2-1.0) mg/dl AST 20 (13-39) U/L ALT 16 (7-52) U/L Alkaline Phosphatase 95 (34-104) U/L Troponin I High Sens 7.7 (0-14) pg/ml Total Protein 7.3 (6.0-8.3) gm/dl Albumin 4.5 (3.4-5.0) gm/dl Globulin 2.8 (2.5-4.0) gm/dl Albumin/Globulin Ratio 1.6 (0.9-2) Urine Color Dark Yellow Urine Appearance Clear (Clear) Urine pH 6.5 (4.5-7.5) Ur Specific [place] 1.022 (1.000-1.030) Urine Protein Negative (Negative) Urine Glucose (UA) Negative (Negative) Urine Ketones 1+ H (Negative) Urine Blood Negative (Negative) Urine Nitrite Negative (Negative) Urine Bilirubin Negative (Negative) Urine Urobilinogen Negative (Negative) Ur Leukocyte Esterase Negative (Negative) Urine Opiates Screen (Neg) Ur Methadone, Qual (Neg) Urine Barbiturates (Neg) Ur Phencyclidine (PCP) (Neg) U Amphetamin/Meth Scrn (Neg) MDMA (Ecstasy) Screen (Neg) U Benzodiazepines Scrn (Neg) Ur Cocaine Metabolite (Neg) U Marijuana (THC) Screen (Neg) Ethyl Alcohol mg/dL < 10.0 (<10.0) mg/dl SARS-CoV-2, RNA, NAAT (NEGATIVE) 02/28/22 02/28/22 Range/Units 14:19 17:26 WBC (4.8-10.8) K/uL RBC (4.2-5.4) M/uL Hgb (12.0-16.0) g/dL Hct (37-47) % MCV (80-100) fL MCH (25-34) pg MCHC (32-36) g/dL RDW Std Deviation (36.4-46.3) fL RDW Coeff of Eugenie (11.5-14.5) % Plt Count (130-400) K/uL MPV (7.4-10.4) fL Immature Gran % (Auto) % Neut % (Auto) % Lymph % (Auto) % [place] % (Auto) % Eos % (Auto) % Baso % (Auto) % Neut # (Auto) (1.4-6.5) K/uL Lymph # (Auto) (1.2-3.4) K/uL [place] # (Auto) (0.11-0.59) K/uL Eos # (Auto) (0-0.5) K/uL Baso # (Auto) (0-0.2) K/uL Immature Gran # (Auto) (0.00-0.02) K/uL PT (9.0-12.0) Seconds INR (0.9-1.1) APTT (21.0-31.0) Seconds PTT Ratio Sodium (136-145) mmol/L Potassium (3.5-5.1) mmol/L Chloride (98-107) mmol/L Carbon Dioxide (21-32) mmol/L Anion Gap (3-11) BUN (6-23) mg/dl Creatinine (0.6-1.2) mg/dl Est Cr Clr Drug Dosing ml/min Est GFR ( Amer) ml/min Est GFR (Non-Af Amer) ml/min BUN/Creatinine Ratio (10-20) Glucose (70-99(Fasting)) mg/dl POC Glucose (70-99) mg/dl Calcium (8.5-10.1) mg/dl Magnesium (1.7-2.4) mg/dl Total Bilirubin (0.2-1.0) mg/dl AST (13-39) U/L ALT (7-52) U/L Alkaline Phosphatase (34-104) U/L Troponin I High Sens (0-14) pg/ml Total Protein (6.0-8.3) gm/dl Albumin (3.4-5.0) gm/dl Globulin (2.5-4.0) gm/dl Albumin/Globulin Ratio (0.9-2) Urine Color Urine Appearance (Clear) Urine pH (4.5-7.5) Ur Specific [place] (1.000-1.030) Urine Protein (Negative) Urine Glucose (UA) (Negative) Urine Ketones (Negative) Urine Blood (Negative) Urine Nitrite (Negative) Urine Bilirubin (Negative) Urine Urobilinogen (Negative) Ur Leukocyte Esterase (Negative) Urine Opiates Screen Neg (Neg) Ur Methadone, Qual Neg (Neg) Urine Barbiturates Neg (Neg) Ur Phencyclidine (PCP) Neg (Neg) U Amphetamin/Meth Scrn Neg (Neg) MDMA (Ecstasy) Screen Pos H (Neg) U Benzodiazepines Scrn Neg (Neg) Ur Cocaine Metabolite Neg (Neg) U Marijuana (THC) Screen Neg (Neg) Ethyl Alcohol mg/dL (<10.0) mg/dl SARS-CoV-2, RNA, NAAT NEGATIVE (NEGATIVE) Administered Medications Discontinued Medications Aspirin (Aspirin Chew 324 Mg) 324 mg PO NOW STA Stop: 02/28/22 15:13 Last Admin: 02/28/22 15:52 Dose: 324 mg Documented by: [id number] Sodium Chloride (Nss 1000ml) 1,000 mls @ 999 mls/hr IV .Q1H1M ONE Stop: 02/28/22 14:31 Last Infusion: 02/28/22 15:28 Dose: 0 mls/hr Documented by: [id number] Admin: 02/28/22 14:23 Dose: 999 mls/hr Documented by: [id number] Ioversol (Optiray 320 125ml) 119 ml IV ONCE ONE Stop: 02/28/22 14:41 Last Admin: 02/28/22 14:45 Dose: 119 ml Documented by: [id number] Imaging Data Radiologist's Impression: Cervical Spine CT 02/28/22 13:31 CT cervical spine wo con CLINICAL HISTORY: 61 years-old Female with fall. Acute neck trauma status post fall COMPARISON: CT cervical spine 01/29/2021 TECHNIQUE: Multiple axial CT images of the cervical spine were obtained without contrast. A dose lowering technique was utilized adhering to the principles of ALARA. FINDINGS: Straightening of the normal cervical lordosis. Stable mild anterolisthesis C4 on C5 is unchanged which is likely secondary to chronic facet arthrosis. Severe multilevel intervertebral disc space narrowing with associated spondylitic spurring. Dextroscoliosis of the cervical spine. No acute cervical spine fracture or subluxation. There is multilevel neural foraminal narrowing. Calcified plaque of the carotid bulbs. No pneumothorax or prevertebral edema. IMPRESSION: No acute cervical spine fracture or subluxation. ACT 112: Negative or not required by law. The above report was generated using voice recognition software. It may contain grammatical, syntax or spelling errors. Electronically signed by: Ford Corey M.D. 02/28/2022 3:02 PM Chest X-Ray 02/28/22 13:31 XR chest 1V portable HISTORY: 61 years-old Female Stroke Like Symptoms acute weakness with strokelike symptoms COMPARISON: Chest CT 01/29/2021 TECHNIQUE: Portable AP view of the chest FINDINGS: The cardiac silhouette is mildly enlarged. No pneumothorax, pleural effusion, airspace consolidation or overt pulmonary edema. Degenerative changes of the shoulders and spine. IMPRESSION: No acute process. ACT 112: Negative or not required by law. The above report was generated using voice recognition software. It may contain grammatical, syntax or spelling errors. Electronically signed by: Ford Corey M.D. 02/28/2022 2:[address] 02/28/22 13:31 CT head/brain wo con CLINICAL HISTORY: Stroke Like Symptoms . Status post fall COMPARISON STUDY: 01/29/2021 CT DOSE: 1241.88 mGy.cm TECHNIQUE: Standard CT of the Brain was performed without IV contrast. A dose lowering technique was utilized adhering to the principles of ALARA. FINDINGS: Extraaxial space: There is no evidence for subdural hematoma. There are no extra-axial fluid collections. Ventricles and cisterns: The ventricles are normal in size and configuration. There is no evidence for midline shift or mass effect. Parenchyma: There is no subarachnoid or intraparenchymal hemorrhage. There is no evidence for an acute infarct or cerebral edema. There is homogeneous atten uation of the brain parenchyma. There are no gross mass lesions. Osseous structures: There is no evidence for an acute fracture. The visualized paranasal sinuses are clear. The mastoid air cells are clear bilaterally. Soft tissues: There is no evidence for focal soft tissue swelling. IMPRESSION: 1. No acute intracerebral pathology. ACT 112: Negative or not required by law. Electronically signed by: Presley Sams M.D. 02/28/2022 2:56 PM Head CTA 02/28/22 13:31 CT angio neck with con, CT angio head w con CLINICAL HISTORY: Stroke Like Symptoms TECHNIQUE: CT angiography of the head and neck was performed following intravenous administration of iodinated contrast. Coronal and sagittal MIPS were obtained from the axial data set and were submitted for review. Automated dose lowering techniques and/or adjustment according to patient size were utilized for this examination. All measurements were calculated based on NASCET criteria. Comparison: None available at the time of this dictation. FINDINGS: Lungs and soft tissues are unremarkable. CTA Neck: A 3 vessel aortic arch is shown. There is no significant atherosclerotic plaque in the aortic arch or the origins of the innominate, left common carotid, and left subclavian arteries. The common carotid, external carotid, cervical segments of the internal carotid arteries, and the cervical segments of the vertebral arteries are patent without hemodynamically significant stenosis. Tortuosity of the bilateral internal carotid arteries noted. The left vertebral artery is tortuous. The left vertebral artery is dominant. CTA Head: The anterior and posterior cerebral circulations are patent. No hemodynamically significant stenosis, aneurysm, dissection, or arteriovenous malformation is shown. origin of the bilateral posterior cerebral arteries noted. IMPRESSION: 1. No occlusion, hemodynamically significant stenosis, aneurysm, dissection, or arteriovenous malformation in the major intracranial arteries. 2. No occlusion, hemodynamically significant stenosis, or dissection in the major cervical arteries. Assessment of stenosis of the internal carotid arteries is based on NASCET cr iteria. ACT 112: Negative or not required by law. Electronically signed by: Bertin Flores M.D. 02/28/2022 3:02 PM Neck CTA 02/28/22 13:31 CT angio neck with con, CT angio head w con CLINICAL HISTORY: Stroke Like Symptoms TECHNIQUE: CT angiography of the head and neck was performed following intravenous administration of iodinated contrast. Coronal and sagittal MIPS were obtained from the axial data set and were submitted for review. Automated dose lowering techniques and/or adjustment according to patient size were utilized for this examination. All measurements were calculated based on NASCET criteria. Comparison: None available at the time of this dictation. FINDINGS: Lungs and soft tissues are unremarkable. CTA Neck: A 3 vessel aortic arch is shown. There is no significant atherosclerotic plaque in the aortic arch or the origins of the innominate, left common carotid, and left subclavian arteries. The common carotid, external carotid, cervical segments of the internal carotid arteries, and the cervical segments of the vertebral arteries are patent without hemodynamically significant stenosis. Tortuosity of the bilateral internal carotid arteries noted. The left vertebral artery is tortuous. The left vertebral artery is dominant. CTA Head: The anterior and posterior cerebral circulations are patent. No hemodynamically significant stenosis, aneurysm, dissection, or arteriovenous malformation is shown. origin of the bilateral posterior cerebral arteries noted. IMPRESSION: 1. No occlusion, hemodynamically significant stenosis, aneurysm, dissection, or arteriovenous malformation in the major intracranial arteries. 2. No occlusion, hemodynamically significant stenosis, or dissection in the major cervical arteries. Assessment of stenosis of the internal carotid arteries is based on NASCET criteria. ACT 112: Negative or not required by law. Electronically signed by: Bertin Flores M.D. 02/28/2022 3:02 PM Brain MRI 02/28/22 17:00 MR brain wo con CLINICAL HISTORY: Left sided weakness. Status post fall with trauma to the head. Left arm and leg weakness. Confusion. COMPARISON STUDY: CT brain from 02/28/2022 TECHNIQUE: Multiplanar multisequence images of the Brain were performed without IV contrast. Diffusion weighted imaging and ADC mapping was also performed. FINDINGS: Extra-axial space: There is no evidence for a subdural hematoma, There are no extra-axial fluid collections. Ventricles and cisterns: The ventricles are normal in size and configuration. There is no evidence for midline shift or mass effect. Parenchyma: There is evidence for an acute to subacute infarct within the basal ganglia on the right. Acute diffusion abnormalities are noted on diffusion weighted imaging and ADC mapping. There is normal burciaga-white differentiation. The sulci and gyri appear normal without effacement. The midline structures are unremarkable. The posterior fossa structures appear normal. There is no evidence for mass lesion. Osseous structures: The paranasal sinuses are well aerated. The mastoid air cells are well aerated. Soft tissues: No focal soft tissue abnormalities are identified. IMPRESSION: 1. Evidence for an acute to subacute infarct involving the basal ganglia on the right. ACT 112: Negative or not required by law. Electronically signed by: Presley Sams M.D. 02/28/2022 6:27 PM Discharge Plan Visit Data Chief Complaint: TIA Symptoms Stated Complaint: POSSIBLE STROKE LAST NIGHT, LEFT SIDE WEAKNESS ED Provider: Parker Frausto Discharge Problem: Acute CVA (cerebrovascular accident), Syncope, Fall, Acute left-sided muscle weakness Forms Stand Alone Forms: [employer] Prescriptions Prescriptions: No Action multivitamin Tablet 1 tab PO DAILY RF: 0 fluoxetine [Prozac] 40 mg capsule 40 mg PO DAILY RF: 0 sertraline 100 mg tablet 150 mg PO DAILY RF: 0 ascorbic acid (vitamin C) [Vitamin C] 250 mg Tablet 0 mg PO DAILY RF: 0 ferrous sulfate [iron] 325 mg (65 mg iron) Tablet 325 mg PO DAILY RF: 0 lisinopril 10 mg Tablet 10 mg PO DAILY PRN (Reason: ..) RF: 0 calcium 250 mg Tablet 600 mg PO DAILY RF: 0 vitamin B complex Tablet 1 tab PO DAILY RF: 0 magnesium 250 mg Tablet 0 mg PO DAILY RF: 0 lamotrigine [Lamictal] 100 mg tablet 300 mg PO DAILY RF: 0 Post 3 Fish Oil Capsule 1,000 mg PO DAILY RF: 0 bupropion HCl 300 mg tablet extended release 24 hr 300 mg PO DAILY RF: 0 biotin 1 mg Tablet 1 mg PO DAILY RF: 0 Referrals Referrals: Deysi Coats DO [Primary Care Provider] - Discharge Problem: Syncope Qualifiers: Syncope type: unspecified Qualified Code(s): R55 - Syncope and collapse Fall Qualifiers: Encounter type: initial encounter Qualified Code(s): W19.XXXA - Unspecified fall, initial encounter
--- NOTE | 2022-02-28 14:16 | XRay Report ---
XR chest 1V portable HISTORY: 61 years-old Female Stroke Like Symptoms acute weakness with strokelike symptoms COMPARISON: Chest CT 01/29/2021 TECHNIQUE: Portable AP view of the chest FINDINGS: The cardiac silhouette is mildly enlarged. No pneumothorax, pleural effusion, airspace consolidation or overt pulmonary edema. Degenerative changes of the shoulders and spine. IMPRESSION: No acute process. ACT 112: Negative or not required by law. The above report was generated using voice recognition software. It may contain grammatical, syntax o r spelling errors. Electronically signed by: Ford Corey M.D. 02/28/2022 2:15 PM
[2022-02-28 14:18] LABS: Basophils # (auto) 0.03 K/uL (0-0.2); Basophils % (auto) 0.4 %; Eosinophils # (auto) 0.06 K/uL (0-0.5); Eosinophils % (auto) 0.8 %; Hematocrit (blood only) 40.5 % (37-47); Immature Granulocytes # (auto) 0.02 K/uL (0.00-0.02); Immature Granulocytes % (auto) 0.3 %; Lymphocytes % (auto) 21.3 %; Mean Corpuscular Hemoglobin 31.7 pg (25-34); Mean Corpuscular Hgb Conc 34.6 g/dL (32-36); Mean Corpuscular Volume 91.6 fL (80-100); Mean Platelet Volume 9.4 fL (7.4-10.4); Monocytes # (auto) 0.67 K/uL (0.11-0.59); Monocytes % (auto) 8.9 %; Neutrophils # (auto) 5.13 K/uL (1.4-6.5); Neutrophils % (auto) 68.3 %; Platelet Count 279 K/uL (130-400); RDW Coefficient of Variation 12.5 % (11.5-14.5); RDW Standard Deviation 42.2 fL (36.4-46.3); Red Blood Count 4.42 M/uL (4.2-5.4); White Blood Count 7.51 K/uL (4.8-10.8)
[2022-02-28] MEDS ORDERED: OPTIRAY 320 125ml IV ONE (14:40)
[2022-02-28 14:41] LABS: Troponin I High Sensitivity 7.7 pg/ml (0-14)
[2022-02-28 14:43] LABS: INR 0.9 (0.9-1.1); Partial Thromboplastin Time 28.4 Seconds (21.0-31.0)
[2022-02-28 14:48] LABS: Albumin Globulin Ratio 1.6 (0.9-2); Albumin Level 4.5 gm/dl (3.4-5.0); Bilirubin,Total 0.8 mg/dl (0.2-1.0); Calcium 9.4 mg/dl (8.5-10.1); Creatinine Clr Calc Pharmacy 101.3 ml/min; Est GFR (African American) 119.4 ml/min; Globulin 2.8 gm/dl (2.5-4.0); Potassium 3.9 mmol/L (3.5-5.1); Total Protein 7.3 gm/dl (6.0-8.3)
--- NOTE | 2022-02-28 14:59 | CT Scan Report ---
CT head/brain wo con CLINICAL HISTORY: Stroke Like Symptoms . Status post fall COMPARISON STUDY: 01/29/2021 CT DOSE: 1241.88 mGy.cm TECHNIQUE: Standard CT of the Brain was performed without IV contrast. A dose lowering technique was utilized adhering to the principles of ALARA. FINDINGS: Extraaxial space: There is no evidence for subdural hematoma. There are no extra-axial fluid collecti ons. Ventricles and cisterns: The ventricles are normal in size and configuration. There is no evidence fo r midline shift or mass effect. Parenchyma: There is no subarachnoid or intraparenchymal hemorrhage. There is no evidence for an acut e infarct or cerebral edema. There is homogeneous attenuation of the brain parenchyma. There are no g ross mass lesions. Osseous structures: There is no evidence for an acute fracture. The visualized paranasal sinuses are clear. The mastoid air cells are clear bilaterally. Soft tissues: There is no evidence for focal soft tissue swelling. IMPRESSION: 1. No acute intracerebral pathology. ACT 112: Negative or not required by law. Electronically signed by: Presley Sams M.D. 02/28/2022 2:56 PM
[2022-02-28 15:00] LABS: Appearance Urine Clear (Clear); Bilirubin Urine Negative (Negative); Blood Urine Negative (Negative); Color Urine Dark Yellow; Glucose Urine UA Negative (Negative); Ketones Urine 1+ (Negative); Leukocyte Esterase Urine Negative (Negative); Nitrite Urine Negative (Negative); Protein Urine Negative (Negative); Specific Gravity Urine 1.022 (1.000-1.030); Urobilinogen Urine Negative (Negative); pH Urine 6.5 (4.5-7.5)
--- NOTE | 2022-02-28 15:03 | CT Scan Report ---
CT angio neck with con, CT angio head w con CLINICAL HISTORY: Stroke Like Symptoms TECHNIQUE: CT angiography of the head and neck was performed following intravenous administration of iodinated contrast. Coronal and sagittal MIPS were obtained from the axial data set and were submitte d for review. Automated dose lowering techniques and/or adjustment according to patient size were ut ilized for this examination. All measurements were calculated based on NASCET criteria. Comparison: None available at the time of this dictation. FINDINGS: Lungs and soft tissues are unremarkable. CTA Neck: A 3 vessel aortic arch is shown. There is no significant atherosclerotic plaque in the aor tic arch or the origins of the innominate, left common carotid, and left subclavian arteries. The c ommon carotid, external carotid, cervical segments of the internal carotid arteries, and the cervical segments of the vertebral arteries are patent without hemodynamically significant stenosis. Tortuosi ty of the bilateral internal carotid arteries noted. The left vertebral artery is tortuous. The left vertebral artery is dominant. CTA Head: The anterior and posterior cerebral circulations are patent. No hemodynamically significan t stenosis, aneurysm, dissection, or arteriovenous malformation is shown. origin of the bilater al posterior cerebral arteries noted. IMPRESSION: 1. No occlusion, hemodynamically significant stenosis, aneurysm, dissection, or arteriovenous malfor mation in the major intracranial arteries. 2. No occlusion, hemodynamically significant stenosis, or dissection in the major cervical arteries. Assessment of stenosis of the internal carotid arteries is based on NASCET criteria. ACT 112: Negative or not required by law. Electronically signed by: Bertin Flores M.D. 02/28/2022 3:02 PM
--- NOTE | 2022-02-28 15:04 | CT Scan Report ---
CT cervical spine wo con CLINICAL HISTORY: 61 years-old Female with fall. Acute neck trauma status post fall COMPARISON: CT cervical spine 01/29/2021 TECHNIQUE: Multiple axial CT images of the cervical spine were obtained without contrast. A dose low ering technique was utilized adhering to the principles of ALARA. FINDINGS: Straightening of the normal cervical lordosis. Stable mild anterolisthesis C4 on C5 is unch anged which is likely secondary to chronic facet arthrosis. Severe multilevel intervertebral disc spa ce narrowing with associated spondylitic spurring. Dextroscoliosis of the cervical spine. No acute ce rvical spine fracture or subluxation. There is multilevel neural foraminal narrowing. Calcified plaque of the carotid bulbs. No pneumothorax or prevertebral edema. IMPRESSION: No acute cervical spine fracture or subluxation. ACT 112: Negative or not required by law. The above report was generated using voice recognition software. It may contain grammatical, syntax o r spelling errors. Electronically signed by: Ford Croey M.D. 02/28/2022 3:02 PM
[2022-02-28] MEDS ORDERED: ASPIRIN CHEW 324 MG PO STA (15:12)
[2022-02-28 15:49] LABS: Amphetamines+Metham, Urine Neg (Neg); Barbiturates, Urine Neg (Neg); Benzodiazepine, Urine Neg (Neg); Cocaine, Urine Neg (Neg); MDMA (Ecstacy), Urine Pos (Neg); Methadone, Urine Neg (Neg); Opiate, Urine Neg (Neg); Phencyclidine, Urine Neg (Neg)
[2022-02-28] MEDS ORDERED: PHARMACIST DISCHARGE MED REC CONSULT PRN (17:00)
--- NOTE | 2022-02-28 17:13 | History & Physical Report ---
Date of Service February 28, 2022 Assessment & Plan (1) Acute left-sided muscle weakness: (2) Fall: (3) Syncope: Plan: 61 years old female with past medical history of depression, hypertension present on admission for left-sided weakness and syncope Need to r/o Acute CVA vs seizure Doubt about seizure since there was no jerking movement or seizure like activity noted Stroke alert did not call because patient was out of the window for tPA CTA head/neck showed no occlusion, hemodynamically significant stenosis, aneurysm, dissection, or arteriovenous malformation in the major intracranial arteries. CT head showed no acute intracranial abnormality UDS positive for MDMA Aspirin 325mg given in the ER Will consult Neuro We will start on aspirin 81 mg daily Will get MRI head and echo Will check Lipid panel Continue neuro check PT/OT/Speech eval Continue monitor closely Hypertension She takes lisinopril as needed only when BP elevates Will allow permissive hypertension due to strokelike symptoms Will resume lisinopril 10 mg daily We will monitor BP closely Depression Patient is on high-dose antipsychotic med. She said she feels sleepy during the day due to the antipsychotic med We will continue Zoloft 150 mg daily, Wellbutrin 300 mg daily, 40 mg daily and Lamictal 200 mg daily Stable History of alcohol abuse Patient said she has not touched any alcohol in the last 4 years History gastric bypass Continue vitamin supplements CODE STATUS DNR as per patient DVT prophylaxis Lovenox subcu History of Present Illness Chief Complaint: Left sided weakness Primary Care Provider: Deysi Coats DO 61 years old female with past medical history of alcohol abuse with last drink was 4 years ago as per patient, depression, history of gastric bypass, osteoarthritis, hypertension presented to the ER for left-sided weakness. Around 10 PM last night patient was walking to her room when she fell on the floor. She had a syncopal episode lasted about an 1 or 2 hour. Her partner helped to get her to the bed. He said patient was groggy and confused. He said he did not notice any jerking movement or seizure-like activity while patient was lying on the floor. Patient said she did not remember anything last night. She hit her head during the fall. She had nighttime bladder incontinence that happened after the syncope episode during the night. She said this morning her left arm and left leg felt weak. She said her gait is unsteady and she is dragging her left leg while walking. She denies any alcohol intake or illicit drug. She is taking high dose antipsychotic meds. She said she feels sleepy like a zombie during the day from antipsychotic medications. she said the only change from her medication was prozac that was increased recently. She is on lisinopril but she was told to take it as needed when her blood pressure elevates only.. She did not want to get admitted at first but after further discussion she agreed to stay for 1-2 nights. Denies any chest pain, palpitation, dizziness, fever, slurred speech, blurry vision, diarrhea, nausea and vomiting. Allergies Allergy/AdvReac Type Severity Reaction Status Date / Time hydroxyzine AdvReac Unknown DELIRIUM Verified 02/28/22 16:36 Home Medications Medication Instructions Recorded Confirmed Type ascorbic acid (vitamin C) 250 mg 0 mg PO DAILY 02/28/22 02/28/22 History tablet (Vitamin C) biotin 1 mg tablet 1 mg PO DAILY 02/28/22 02/28/22 History bupropion HCl 300 mg 24 hr tablet, 300 mg PO DAILY 02/28/22 02/28/22 History extended release calcium 250 mg tablet 600 mg PO DAILY 02/28/22 02/28/22 History ferrous sulfate 325 mg (65 mg 325 mg PO DAILY 02/28/22 02/28/22 History iron) tablet (iron) fluoxetine 40 mg capsule (Prozac) 40 mg PO DAILY 02/28/22 02/28/22 History lamotrigine 100 mg tablet 300 mg PO DAILY 02/28/22 02/28/22 History (Lamictal) lisinopril 10 mg tablet 10 mg PO DAILY PRN 02/28/22 02/28/22 History magnesium 250 mg tablet 0 mg PO DAILY 02/28/22 02/28/22 History multivitamin 1 tab PO DAILY 02/28/22 02/28/22 History omega-3 fatty acids 1,000 mg PO DAILY 02/28/22 02/28/22 History sertraline 100 mg tablet 150 mg PO DAILY 02/28/22 02/28/22 History vitamin B complex 1 tab PO DAILY 02/28/22 02/28/22 History Past Med/Surg History Social History Smoking Status: Former smoker Tobacco Type: Cigarettes Second Hand Exposure: No; Do You Dip or Chew Tobacco: No; Hx Alcohol Use: No Hx Substance Use: No Preferred Language: Hebrew 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 Ability: Effective Elevator Constructor Required: No Beliefs That Will Affect Care: None Current Living Situation: Alone Feels Safe at Home: Yes Safety Concerns: Feels Safe At This Time Assistive Devices: None Review of Systems Review of Systems: All systems reviewed & are unremarkable except as noted in HPI & below Physical Exam Physical Exam: General- No acute distress Head- atraumatic Eyes- PERRL, EOMI, no nystagmus ENT- oropharynx clear, no tongue bites Neck- supple, no JVD Lungs- clear to auscultation Heart- regular rhythm; no murmur Abdomen- normal bowel sounds, soft, nontender Extremities- no calf tenderness, no edema Neuro- alert, oriented x 3; PERRL, EOMI; no facial palsy; no dysarthria, Mild positive finger to nose in left arm, no tremor, +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 Acute neck trauma status post fall COMPARISON: CT cervical spine 01/29/2021 TECHNIQUE: Multiple axial CT images of the cervical spine were obtained without contrast. A dose lowering technique was utilized adhering to the principles of ALARA. FINDINGS: Straightening of the normal cervical lordosis. Stable mild anterolisthesis C4 on C5 is unchanged which is likely secondary to chronic facet arthrosis. Severe multilevel intervertebral disc space narrowing with associated spondylitic spurring. Dextroscoliosis of the cervical spine. No acute cervical spine fracture or subluxation. There is multilevel neural foraminal narrowing. Calcified plaque of the carotid bulbs. No pneumothorax or prevertebral edema. IMPRESSION: No acute cervical spine fracture or subluxation. ACT 112: Negative or not required by law. The above report was generated using voice recognition software. It may contain grammatical, syntax or spelling errors. Electronically signed by: Ford Corey M.D. 02/28/2022 3:02 PM Dictated:07/05/22 1455 Transcribed: 02/28/221454 XR chest 1V portable HISTORY: 61 years-old Female Stroke Like Symptoms acute weakness with strokelike symptoms COMPARISON: Chest CT 01/29/2021 TECHNIQUE: Portable AP view of the chest FINDINGS: The cardiac silhouette is mildly enlarged. No pneumothorax, pleural effusion, airspace consolidation or overt pulmonary edema. Degenerative changes of the shoulders and spine. IMPRESSION: No acute process. ACT 112: Negative or not required by law. The above report was generated using voice recognition software. It may contain grammatical, syntax or spelling errors. Electronically signed by: Ford Corey M.D. 02/28/2022 2:15 PM Dictated:02/28/221411 Transcribed: 02/28/221411 CT head/brain wo con CLINICAL HISTORY: Stroke Like Symptoms . Status post fall COMPARISON STUDY: 01/29/2021 CT DOSE: 1241.88 mGy.cm TECHNIQUE: Standard CT of the Brain was performed without IV contrast. A dose lowering technique was utilized adhering to the principles of ALARA. FINDINGS: Extraaxial space: There is no evidence for subdural hematoma. There are no extra-axial fluid collections. Ventricles and cisterns: The ventricles are normal in size and configuration. There is no evidence for midline shift or mass effect. Parenchyma: There is no subarachnoid or intraparenchymal hemorrhage. There is no evidence for an acute infarct or cerebral edema. There is homogeneous attenuation of the brain parenchyma. There are no gross mass lesions. Osseous structures: There is no evidence for an acute fracture. The visualized paranasal sinuses are clear. The mastoid air cells are clear bilaterally. Soft tissues: There is no evidence for focal soft tissue swelling. IMPRESSION: 1. No acute intracerebral pathology. ACT 112: Negative or not required by law. Electronically signed by: Presley Sams M.D. 02/28/2022 2:56 PM Dictated:02/28/221452 Transcribed: 02/28/221452 CT angio neck with con, CT angio head w con CLINICAL HISTORY: Stroke Like Symptoms TECHNIQUE: CT angiography of the head and neck was performed following intravenous administration of iodinated contrast. Coronal and sagittal MIPS were obtained from the axial data set and were submitted for review. Automated dose lowering techniques and/or adjustment according to patient size were utilized for this examination. All measurements were calculated based on NASCET criteria. Comparison: None available at the time of this dictation. FINDINGS: Lungs and soft tissues are unremarkable. CTA Neck: A 3 vessel aortic arch is shown. There is no significant atherosclerotic plaque in the aortic arch or the origins of the innominate, left common carotid, and left subclavian arteries. The common carotid, external carotid, cervical segments of the internal carotid arteries, and the cervical segments of the vertebral arteries are patent without hemodynamically significant stenosis. Tortuosity of the bilateral internal carotid arteries noted. The left vertebral artery is tortuous. The left vertebral artery is dominant. CTA Head: The anterior and posterior cerebral circulations are patent. No hemodynamically significant stenosis, aneurysm, dissection, or arteriovenous malformation is shown. origin of the bilateral posterior cerebral arteries noted. IMPRESSION: 1. No occlusion, hemodynamically significant stenosis, aneurysm, dissection, or arteriovenous malformation in the major intracranial arteries. 2. No occlusion, hemodynamically significant stenosis, or dissection in the major cervical arteries. Assessment of stenosis of the internal carotid arteries is based on NASCET criteria. ACT 112: Negative or not required by law. Electronically signed by: Bertin Flores M.D. 02/28/2022 3:02 PM Dictated:02/28/22 1453 Transcribed: 02/28/[address] angio neck with con, CT angio head w con CLINICAL HISTORY: Stroke Like Symptoms TECHNIQUE: CT angiography of the head and neck was performed following intravenous administration of iodinated contrast. Coronal and sagittal MIPS were obtained from the axial data set and were submitted for review. Automated dose lowering techniques and/or adjustment according to patient size were utilized for this examination. All measurements were calculated based on NASCET criteria. Comparison: None available at the time of this dictation. FINDINGS: Lungs and soft tissues are unremarkable. CTA Neck: A 3 vessel aortic arch is shown. There is no significant atherosclerotic plaque in the aortic arch or the origins of the innominate, left common carotid, and left subclavian arteries. The common carotid, external carotid, cervical segments of the internal carotid arteries, and the cervical segments of the vertebral arteries are patent without hemodynamically significant stenosis. Tortuosity of the bilateral internal carotid arteries noted. The left vertebral artery is tortuous. The left vertebral artery is dominant. CTA Head: The anterior and posterior cerebral circulations are patent. No hemodynamically significant stenosis, aneurysm, dissection, or arteriovenous malformation is shown. origin of the bilateral posterior cerebral arteries noted. IMPRESSION: 1. No occlusion, hemodynamically significant stenosis, aneurysm, dissection, or arteriovenous malformation in the major intracranial arteries. 2. No occlusion, hemodynamically significant stenosis, or dissection in the major cervical arteries. Assessment of stenosis of the internal carotid arteries is based on NASCET criteria. ACT 112: Negative or not required by law. Electronically signed by: Bertin Flores M.D. 02/28/2022 3:02 PM Dictated:02/28/22 1453 Transcribed: 02/28/22 1453 Code Status & VTE Plan VTE Prophylaxis Plan VTE Prophylaxis will be ordered: Yes (1) Syncope Syncope type: unspecified Qualified Code(s): R55 - Syncope and collapse (2) Fall Encounter type: initial encounter Qualified Code(s): W19.XXXA - Unspecified fall, initial encounter
--- NOTE | 2022-02-28 18:29 | Magnetic Resonance Report ---
MR brain wo con CLINICAL HISTORY: Left sided weakness. Status post fall with trauma to the head. Left arm and leg w eakness. Confusion. COMPARISON STUDY: CT brain from 02/28/2022 TECHNIQUE: Multiplanar multisequence images of the Brain were performed without IV contrast. Diffusi on weighted imaging and ADC mapping was also performed. FINDINGS: Extra-axial space: There is no evidence for a subdural hematoma, There are no extra-axial fluid kaur ections. Ventricles and cisterns: The ventricles are normal in size and configuration. There is no evidence f or midline shift or mass effect. Parenchyma: There is evidence for an acute to subacute infarct within the basal ganglia on the right. Acute diffusion abnormalities are noted on diffusion weighted imaging and ADC mapping. There is nor mal burciaga-white differentiation. The sulci and gyri appear normal without effacement. The midline stru ctures are unremarkable. The posterior fossa structures appear normal. There is no evidence for mass lesion. Osseous structures: The paranasal sinuses are well aerated. The mastoid air cells are well aerated. Soft tissues: No focal soft tissue abnormalities are identified. IMPRESSION: 1. Evidence for an acute to subacute infarct involving the basal ganglia on the right. ACT 112: Negative or not required by law. Electronically signed by: Presley Sams M.D. 02/28/2022 6:27 PM
[2022-02-28] MEDS ORDERED: ACETAMINOPHEN 325 MG TAB PO STA (20:50)
[2022-02-28] MEDS ORDERED: CLOPIDOGREL BISULFATE 75 MG TAB PO ONE (21:31)
[2022-02-28] MEDS ORDERED: hydrALAZINE HCL 20 MG/ML VIAL IV PRN (21:32)
[2022-02-28] MEDS ORDERED: ATORVASTATIN 40 MG TAB PO SCH (21:40)
[2022-03-01] MEDS: ACETAMINOPHEN 325 MG TAB PO PRN ×2 (04:22→15:48)
[2022-03-01] MEDS ORDERED: oxyCODONE HCL IR 5 MG TAB (IMMEDIATE RELEASE) PO PRN (04:32)
[2022-03-01] MEDS ORDERED: TROLAMINE SALICYLATE 10% CRM 255 APPLN/85 GM TUBE EXT PRN (04:32)
[2022-03-01] MEDS ORDERED: TROLAMINE SALICYLATE 10% CRM 255 APPLN/85 GM TUBE EXT STA (04:41)
[2022-03-01 06:17] LABS: Basophils # (auto) 0.03 K/uL (0-0.2); Basophils % (auto) 0.6 %; Hematocrit (blood only) 39.6 % (37-47); Hemoglobin 13.7 g/dL (12.0-16.0); Lymphocytes # (auto) 1.58 K/uL (1.2-3.4); Lymphocytes % (auto) 32.2 %; Mean Corpuscular Hemoglobin 31.9 pg (25-34); Mean Corpuscular Hgb Conc 34.6 g/dL (32-36); Mean Corpuscular Volume 92.1 fL (80-100); Mean Platelet Volume 9.6 fL (7.4-10.4); Monocytes # (auto) 0.65 K/uL (0.11-0.59); Monocytes % (auto) 13.3 %; Neutrophils # (auto) 2.54 K/uL (1.4-6.5); Neutrophils % (auto) 51.9 %; Platelet Count 255 K/uL (130-400); RDW Coefficient of Variation 12.6 % (11.5-14.5); RDW Standard Deviation 42.6 fL (36.4-46.3)
[2022-03-01 06:36] LABS: BUN Creatinine Ratio 24.4 (10-20); Calcium 8.7 mg/dl (8.5-10.1); Chol HDL Ratio 3.3 (0-5); Creatinine Clr Calc Pharmacy 112.2 ml/min; Est GFR (African American) 123.6 ml/min; Est GFR (Non-African American) 106.6 ml/min; Potassium 3.3 mmol/L (3.5-5.1)
[2022-03-01 07:39] LABS: Estimated Average Glucose 105 mg/dl; Hemoglobin A1C 5.3 % (4.5-5.6)
[2022-03-01] MEDS ORDERED: buPROPion XL 300 MG TABCR PO SCH (09:00)
[2022-03-01] MEDS ORDERED: SERTRALINE HCL 100 MG TABLET PO SCH (09:00)
[2022-03-01] MEDS ORDERED: ASPIRIN 81 MG ECTAB PO SCH (09:00)
[2022-03-01] MEDS ORDERED: VITAMIN B COMPLEX TAB PO SCH (09:00)
[2022-03-01] MEDS ORDERED: lisinopril 10 MG TAB PO SCH (09:00)
[2022-03-01] MEDS ORDERED: ATORVASTATIN 40 MG TAB PO SCH (09:00)
[2022-03-01] MEDS ORDERED: MULTIVITAMIN TAB PO SCH (09:00)
[2022-03-01] MEDS ORDERED: OMEGA-3 (PURIFIED FISH OIL) 1 GM CAP PO SCH (09:00)
[2022-03-01] MEDS ORDERED: FLUoxetine HCL 20 MG CAP PO SCH (09:00)
[2022-03-01] MEDS ORDERED: CLOPIDOGREL BISULFATE 75 MG TAB PO SCH (09:00)
[2022-03-01] MEDS ORDERED: lamoTRIgine 100 MG TAB PO SCH (09:00)
[2022-03-01] MEDS ORDERED: ENOXAPARIN INJ 40 MG/0.4 ML SYR SQ SCH (09:00)
[2022-03-01] MEDS ORDERED: NON-FORMULARY MEDICATION (Biotin 1 mg Tablet) PO SCH (09:00)
--- NOTE | 2022-03-01 10:33 | Hospitalist Progress Note ---
Date of Service March 01, 2022 Assessment & Plan (1) Acute left-sided muscle weakness: (2) Fall: (3) Syncope: Plan: 61 years old female with past medical history of depression, hypertension present on admission for left-sided weakness and syncope on the night prior to presentation Stroke alert did not call because patient was out of the window for tPA CTA head/neck showed no occlusion, hemodynamically significant stenosis, aneurysm, dissection, or arteriovenous malformation in the major intracranial arteries. CT head showed no acute intracranial abnormality UDS positive for MDMA MRI was initially reported as acute to subacute infarct involving the basal ganglia on the right. However, this was corrected by Radiology as no acute infarct and initial findings represent T2 shine through Aspirin 325mg given in the ER Currently on aspirin 81 mg daily and Plavix 75 mg daily Was started on atorvastatin. Discussed with Neuro. Get MRI c spine w/wo co Will follow up neurology evaluation and recommendation PT/OT eval Poorly controlled hypertension She has been taking lisinopril only as needed and its been a while since she took it. Lisinopril was resumed Blood pressure coming down slowly. Monitor. A1c is 5.3 Lipid panel noted Depression Continue home meds History of alcohol abuse Patient reported no alcohol use in the last 4 years History gastric bypass Continue vitamin supplements CODE STATUS DNR as per patient DVT prophylaxis Lovenox subcu Tele monitor Need zio patch test outpatient Admission and Anticipated Discharge Date Admission Date: February 28, 2022 Subjective 61-year-old woman with history of hypertension, depression who presents with left-sided weakness. 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 Reports left-sided weakness left arm more than left leg. Reports paresthesias in both hands described as [id number]. Reports some numbness in the left leg. Denies any slurred speech, dysphagia or odynophagia. Some feeling of 'pressure in the head' but not headache. Denies any nausea, vomiting, blurry vision. Denies cough, chest pain, shortness of breath Reports occasional palpitations in the past but does not happen often. Denied abdominal pain, diarrhea, constipation Denied dysuria, frequency, urgency, incontinence Denies fevers or chills Review of Systems Review of Systems: All systems reviewed & are unremarkable except as noted in Subjective Physical Exam Constitutional: + well hydrated; no acute distress Eyes: PERRL, conjunctivae normal, anicteric sclerae ENMT: external ear and nose normal, oropharynx normal Respiratory: normal respiratory effort, lungs clear to auscultation Cardiovascular: RRR, no murmur, no edema Gastrointestinal (Abdomen): normal bowel sounds, soft, nontender, no hepatosplenomegaly Musculoskeletal: No pedal edema Neurologic: PERRL, EOMI, accommodation nl, no face palsy, no dysarthria +left sided weakness in left hand 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) Vital Signs (Past 12 Hours) Vital Signs Temp Pulse Resp BP Pulse Ox 03/01/22 08:03 36.9 C 73 18 168/96 H 97 03/01/22 04:00 36.6 C 78 18 178/112 H 96 03/01/22 00:24 37.1 C 64 18 172/116 H 97 Laboratory Results Abnormal lab results 02/28/22 02/28/22 02/28/22 Range/Units 13:50 13:50 14:19 Alfalfa # (Auto) 0.67 H (0.11-0.59) K/uL Potassium (3.5-5.1) mmol/L Creatinine 0.50 L (0.6-1.2) mg/dl BUN/Creatinine Ratio 24.0 H (10-20) Vitamin B12 (180-914) pg/ml Urine Ketones 1+ H (Negative) MDMA (Ecstasy) Screen (Neg) 02/28/22 03/01/22 03/01/22 Range/Units 14:19 05:37 05:37 Alfalfa # (Auto) 0.65 H (0.11-0.59) K/uL Potassium 3.3 L (3.5-5.1) mmol/L Creatinine 0.45 L (0.6-1.2) mg/dl BUN/Creatinine Ratio 24.4 H (10-20) Vitamin B12 (180-914) pg/ml Urine Ketones (Negative) MDMA (Ecstasy) Screen Pos H (Neg) 03/01/22 Range/Units 05:37 Alfalfa # (Auto) (0.11-0.59) K/uL Potassium (3.5-5.1) mmol/L Creatinine (0.6-1.2) mg/dl BUN/Creatinine Ratio (10-20) Vitamin B12 1339 H (180-914) pg/ml Urine Ketones (Negative) MDMA (Ecstasy) Screen (Neg) (1) Syncope Syncope type: unspecified Qualified Code(s): R55 - Syncope and collapse (2) Fall Encounter type: initial encounter Qualified Code(s): W19.XXXA - Unspecified fall, initial encounter
[2022-03-01] MEDS ORDERED: POTASSIUM CHLORIDE CRTAB 20 MEQ TABCR PO STA (11:58)
--- NOTE | 2022-03-01 13:47 | Neurology Consultation ---
Date of Consultation March 01, 2022 Assessment & Plan (1) Acute left-sided muscle weakness: 1. MRI brain- no acute findings 2. TTE- no ASD 3. CTA head neck- no occlusion or severe stenosis 4. PT/OT speech for discharge needs 5. start aspirin 81 mg and plavix 75 mg daily x 21 days then aspirin alone for life 6. recommend MRI c spine r/o compression if this is negative L shoulder should have MRI for furthe evaluation (2) Acute CVA (cerebrovascular accident): Supervising Physician Co-Signing Physician Notes I have seen and discussed above patient with Dr Keturah Trevino, neurology. Patient seen and examined. Patient had a fall evening before last hit her head lost consciousness was incontinent no witnessed seizure activity she was somewhat agitated her friend who accompanied her allowed her to go to sleep when she woke up she was weak in the left arm and left leg and paresthetic in both hands without a Lhermitte's phenomenon. There are some urinary dribbling. MRI with the brain was initially read out as showing an acute infarct but it does not. Her MRI has not yet been read but there is multilevel cord compression most at C4-5 with edema in the cord. This is the etiology of her current symptoms and she needs urgent surgical evaluation. I will write for Decadron 8 mg every 8. You can stop dual antiplatelet therapy. Her exam is notable for no cranial nerve abnormality motor left upper distally about 3 more proximately 3+ to 4 left lower about 4 reflexes are brisk at the triceps and at the knees ankle jerks are reduced no clonus left toe appears to be upgoing. She is decreased light touch in left hand. Otherwise no sensory loss. Her gait is mildly wide- based. [id number] and haal-ii-[id number] are only limited by weakness. No trunk level is noted and no spinal tenderness Keturah Trevino MD History of Present Illness Reason for Consultation: left sided weakness Requesting Physician: Sirisha Hurtado MD Attending Physician: Sirisha Hurtado MD History of Present Illness Ida is a 61 year old female who presents the [facility] 02/28/22 with a PMH- depression and alcohol intoxication for left-sided weakness. She went to sit down in a chair around 12 AM to 1 AM last night. She missed the chair and fell onto her left side. She was told she went down face first onto the floor but also hit her left shoulder. She does not remember anything after that. She was helped to bed. She denies any drugs or alcohol. She is complaining of left arm weakness as well as left leg weakness. She has trouble walking and feels unsteady. She does admit to hitting her head. She does not believe she passed out. She had some incontinence which she never has, and since the even she is unable to use her left hand her dexterity is off. She is having alot of pain in the left shoulder also. Allergies Allergy/AdvReac Type Severity Reaction Status Date / Time hydroxyzine AdvReac Unknown DELIRIUM Verified 02/28/22 16:36 Home Medications Medication Instructions Recorded Confirmed Type ascorbic acid (vitamin C) 250 mg 0 mg PO DAILY 02/28/22 03/01/22 History tablet (Vitamin C) biotin 1 mg tablet 1 mg PO DAILY 02/28/22 03/01/22 History bupropion HCl 300 mg 24 hr tablet, 300 mg PO DAILY 02/28/22 03/01/22 History extended release calcium 250 mg tablet 600 mg PO DAILY 02/28/22 03/01/22 History ferrous sulfate 325 mg (65 mg 325 mg PO DAILY 02/28/22 03/01/22 History iron) tablet (iron) fluoxetine 40 mg capsule (Prozac) 40 mg PO DAILY 02/28/22 03/01/22 History lamotrigine 100 mg tablet 300 mg PO DAILY 02/28/22 03/01/22 History (Lamictal) lisinopril 10 mg tablet 10 mg PO DAILY PRN 02/28/22 03/01/22 History magnesium 250 mg tablet 0 mg PO DAILY 02/28/22 03/01/22 History multivitamin 1 tab PO DAILY 02/28/22 03/01/22 History omega-3 fatty acids 1,000 mg PO DAILY 02/28/22 03/01/22 History sertraline 100 mg tablet 150 mg PO DAILY 02/28/22 03/01/22 History vitamin B complex 1 tab PO DAILY 02/28/22 03/01/22 History Patient History Social History Smoking Status: Former smoker Tobacco Type: Cigarettes Second Hand Exposure: No; Do You Dip or Chew Tobacco: No; Hx Alcohol Use: No Hx Substance Use: No Preferred Language: Greek 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 Ability: Effective Time Clerk Required: No Beliefs That Will Affect Care: None Current Living Situation: Alone Feels Safe at Home: Yes Safety Concerns: Feels Safe At This Time Assistive Devices: None Review of Systems Review of Systems: All systems reviewed & are unremarkable except as noted in HPI & below Physical Exam Physical Exam: Physical Exam: Constitutional: appearance nourished, healthy and normal Ears, Nose, Mouth and Throat: mucous membranes moist, no injection and skin normal, eyes normal Cardiovascular: normal S-1 and S-2 and regular rate and rhythm Respiratory: clear to auscultation (CTA) and no rales, rhonchi or wheeze Musculoskeletal: no peripheral edema and good distal pulses Skin: no stigmata of neurocutaneous disease noted and normal and intact Eyes: extraocular muscles intact (EOMI) and pupils equal, round and reactive to light (PERRL) NEUROLOGIC EXAMINATION: Mental status: Alert and interactive Oriented to full date and location Oriented to person Speech fluent with no evidence of aphasia Cranial Nerves smile eye brow raise symmetric Reflexes: Deep tendon reflexes were symmetrical and graded 2/5. down going toes Sensory: pain with palpation of forearms bilaterally Coordination: finger to nose dysmetric Gait/Stance: Posture normal. Gait normal: with steady with steps, base, turning, and tandem gait. Motor: Negative for pronator drift of out stretched arms with eyes closed. Strength: left hand intrinsics, hand prosthetic dentist 3/5, biceps triceps deltoids 4/5 right UE 5/5, bilateral hip flex 5/5 Results & Data ([facility]) Vital Signs (Past 12 Hours) Vital Signs Temp Pulse Pulse Resp BP Pulse Ox 03/01/22 12:52 37.4 C 80 18 165/108 H 97 03/01/22 11:07 148/105 H 03/01/22 08:03 36.9 C 73 18 168/96 H 97 03/01/22 07:00 73 03/01/22 04:00 36.6 C 78 18 178/112 H 96 Laboratory Results Abnormal lab results 02/28/22 02/28/22 02/28/22 Range/Units 13:50 13:50 14:19 Pitkin # (Auto) 0.67 H (0.11-0.59) K/uL Potassium (3.5-5.1) mmol/L Creatinine 0.50 L (0.6-1.2) mg/dl BUN/Creatinine Ratio 24.0 H (10-20) Vitamin B12 (180-914) pg/ml Urine Ketones 1+ H (Negative) MDMA (Ecstasy) Screen (Neg) 02/28/22 03/01/22 03/01/22 Range/Units 14:19 05:37 05:37 Pitkin # (Auto) 0.65 H (0.11-0.59) K/uL Potassium 3.3 L (3.5-5.1) mmol/L Creatinine 0.45 L (0.6-1.2) mg/dl BUN/Creatinine Ratio 24.4 H (10-20) Vitamin B12 (180-914) pg/ml Urine Ketones (Negative) MDMA (Ecstasy) Screen Pos H (Neg) 03/01/22 Range/Units 05:37 Pitkin # (Auto) (0.11-0.59) K/uL Potassium (3.5-5.1) mmol/L Creatinine (0.6-1.2) mg/dl BUN/Creatinine Ratio (10-20) Vitamin B12 1339 H (180-914) pg/ml Urine Ketones (Negative) MDMA (Ecstasy) Screen (Neg) Diagnostic Findings MRI brain- no acute findings CT c spine-No acute cervical spine fracture or subluxation. MRI brain-Evidence for an acute to subacute infarct involving the basal ganglia on the right. CTA head/neck-No occlusion, hemodynamically significant stenosis, aneurysm, dissection, or arteriovenous malformation in the major intracranial arteries. No occlusion, hemodynamically significant stenosis, or dissection in the major cervical arteries. TTE- 60-65% no ASD
[2022-03-01] MEDS ORDERED: GADOBUTROL 65ML VIAL IV ONE (17:44)
--- NOTE | 2022-03-01 18:10 | Magnetic Resonance Report ---
MRI OF THE CERVICAL SPINE WITH AND WITHOUT CONTRAST CLINICAL HISTORY: Stroke like symptoms, hand weakness/paraesthesias. COMPARISON: CT of the cervical spine February 28, 2022. TECHNIQUE: Utilizing a 1.5 Marizol magnet and dedicated coil, multiplanar, multiecho imaging of the ce rvical spine was performed before and after intravenous administration of Gadavist. FINDINGS: Reversal of the normal cervical lordosis is noted. This is unchanged. There is 3 mm of anterolisthesi s of C4 on C5. There is slight retrolisthesis of C5 on C6 and C6 on C7. Note is made of increased sig nal within the cervical cord extending from the C3 to the C4-C5 level. This represent cord edema, lik wes due to central canal stenosis, most pronounced at C4-C5. Paravertebral soft tissues are unremarka ble. No cervical spine fracture is noted. No suspicious marrow replacement is present. Severe multile fran degenerative changes are present. There is no abnormal enhancement within the cervical canal alth ough postcontrast images are mildly compromised by motion artifact. C2-C3: Central canal and left neural foramen are patent. There is mild narrowing of the right neural foramen. C3-C4: Posterior disc osteophyte complex is noted. There is ligamentous hypertrophy. There is modera te narrowing of the central canal. Severe left and moderate to severe right neural foraminal stenosis is present. C4-C5: Disc space narrowing is noted with posterior disc osteophyte complex and ligamentous hypertro phy. There is moderate to severe central canal stenosis. Patent AP diameter canal is 4.8 mm. Severe l eft and moderate to severe right neural foraminal stenosis is present. C5-C6: Disc space narrowing is noted with posterior disc osteophyte complex which indents the right ventral aspect of the cord. There is moderate to severe central canal stenosis. There is severe bilat eral neural foraminal stenosis. C6-C7: Disc space narrowing is noted. Posterior disc osteophyte complex effaces the ventral thecal s ac. There is severe bilateral neural foraminal stenosis. C7-T1: The central canal and neural foramen are patent. IMPRESSION: 1. Severe multilevel degenerative disc disease and facet arthrosis within the cervical spine. 2. Increased T2 signal within the cervical cord extending from C3 through the C4-C5 level. This repre sents cord edema, likely due to old compression related to moderate to severe central canal stenosis at C4-C5. In addition, moderate to severe central canal stenosis at C5-C6 and moderate central canal stenosis at C3-C4. Spine surgical consultation is recommended. 3. Severe multilevel neural foraminal stenosis, as above. 4. No cervical spine fracture. ACT 112: Negative or not required by law. Electronically signed by: Robbie Singh M.D. 03/01/2022 6:08 PM
[2022-03-01] MEDS ORDERED: STROKE PATIENT DISCHARGE STA (18:52)
--- NOTE | 2022-03-01 18:59 | Discharge Summary ---
Date of Service March 02, 2022 Admission HPI Per Admitting Provider 61 years old female with past medical history of alcohol abuse with last drink was 4 years ago as per patient, depression, history of gastric bypass, osteoarthritis, hypertension presented to the ER for left-sided weakness. Around 10 PM last night patient was walking to her room when she fell on the floor. She had a syncopal episode lasted about an 1 or 2 hour. Her partner helped to get her to the bed. He said patient was groggy and confused. He said he did not notice any jerking movement or seizure-like activity while patient was lying on the floor. Patient said she did not remember anything last night. She hit her head during the fall. She had nighttime bladder incontinence that happened after the syncope episode during the night. She said this morning her left arm and left leg felt weak. She said her gait is unsteady and she is dragging her left leg while walking. She denies any alcohol intake or illicit drug. She is taking high dose antipsychotic meds. She said she feels sleepy like a zombie during the day from antipsychotic medications. she said the only change from her medication was prozac that was increased recently. She is on lisinopril but she was told to take it as needed when her blood pressure elevates only.. She did not want to get admitted at first but after further discussion she agreed to stay for 1-2 nights. Denies any chest pain, palpitation, dizziness, fever, slurred speech, blurry vision, diarrhea, nausea and vomiting. 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 There is no significant atherosclerotic plaque in the aortic arch or the origins of the innominate, left common carotid, and left subclavian arteries. The common carotid, external carotid, cervical segments of the internal carotid arteries, and the cervical segments of the vertebral arteries are patent without hemodynamically significant stenosis. Tortuosity of the bilateral internal carotid arteries noted. The left vertebral artery is tortuous. The left vertebral artery is dominant. CTA Head: The anterior and posterior cerebral circulations are patent. No hemodynamically significant stenosis, aneurysm, dissection, or arteriovenous malformation is shown. origin of the bilateral posterior cerebral arteries noted. IMPRESSION: 1. No occlusion, hemodynamically significant stenosis, aneurysm, dissection, or arteriovenous malformation in the major intracranial arteries. 2. No occlusion, hemodynamically significant stenosis, or dissection in the major cervical arteries. CT cervical spine wo con Stat Straightening of the normal cervical lordosis. Stable mild anterolisthesis C4 on C5 is unchanged which is likely secondary to chronic facet arthrosis. Severe multilevel intervertebral disc space narrowing with associated spondylitic spurring. Dextroscoliosis of the cervical spine. No acute cervical spine fracture or subluxation. There is multilevel neural foraminal narrowing. Calcified plaque of the carotid bulbs. No pneumothorax or prevertebral edema. IMPRESSION: No acute cervical spine fracture or subluxation. CT head/brain wo con Stat Extraaxial space: There is no evidence for subdural hematoma. There are no extra-axial fluid collections. Ventricles and cisterns: The ventricles are normal in size and configuration. There is no evidence for midline shift or mass effect. Parenchyma: There is no subarachnoid or intraparenchymal hemorrhage. There is no evidence for an acute infarct or cerebral edema. There is homogeneous attenuation of the brain parenchyma. There are no gross mass lesions. Osseous structures: There is no evidence for an acute fracture. The visualized paranasal sinuses are clear. The mastoid air cells are clear bilaterally. Soft tissues: There is no evidence for focal soft tissue swelling. IMPRESSION: 1. No acute intracerebral pathology 02/28/22 17:00 MR brain wo con Stat ADDENDUM Addendum: This study was reviewed with Dr. Trevino. There are no foci of restricted diffusion to suggest acute infarct. The findings within the right basal ganglia represent T2 shine through. This is not hyperintense on the diffusion-weighted sequence. Electronically signed by: Robbie Singh M.D. 03/01/2022 2:57 PM ADDENDUM END MR brain wo con CLINICAL HISTORY: Left sided weakness. Status post fall with trauma to the head. Left arm and leg weakness. Confusion. COMPARISON STUDY: CT brain from 02/28/2022 TECHNIQUE: Multiplanar multisequence images of the Brain were performed without IV contrast. Diffusion weighted imaging and ADC mapping was also performed. FINDINGS: Extra-axial space: There is no evidence for a subdural hematoma, There are no extra-axial fluid collections. Ventricles and cisterns: The ventricles are normal in size and configuration. There is no evidence for midline shift or mass effect. Parenchyma: There is evidence for an acute to subacute infarct within the basal ganglia on the right. Acute diffusion abnormalities are noted on diffusion weighted imaging and ADC mapping. There is normal burciaga-white differentiation. The sulci and gyri appear normal without effacement. The midline structures are unremarkable. The posterior fossa structures appear normal. There is no evidence for mass lesion. Osseous structures: The paranasal sinuses are well aerated. The mastoid air cells are well aerated. Soft tissues: No focal soft tissue abnormalities are identified. IMPRESSION: 1. Evidence for an acute to subacute infarct involving the basal ganglia on the right. ACT 112: Negative or not required by law. 03/01/22 16:02 MR cervical spine wo/w con Stat Reversal of the normal cervical lordosis is noted. This is unchanged. There is 3 mm of anterolisthesis of C4 on C5. There is slight retrolisthesis of C5 on C6 and C6 on C7. Note is made of increased signal within the cervical cord extending from the C3 to the C4-C5 level. This represent cord edema, likely due to central canal stenosis, most pronounced at C4-C5. Paravertebral soft tissues are unremarkable. No cervical spine fracture is noted. No suspicious marrow replacement is present. Severe multilevel degenerative changes are present. There is no abnormal enhancement within the cervical canal although postcontrast images are mildly compromised by motion artifact. C2-C3: Central canal and left neural foramen are patent. There is mild narrowing of the right neural foramen. C3-C4: Posterior disc osteophyte complex is noted. There is ligamentous hypertrophy. There is moderate narrowing of the central canal. Severe left and moderate to severe right neural foraminal stenosis is present. C4-C5: Disc space narrowing is noted with posterior disc osteophyte complex and ligamentous hypertrophy. There is moderate to severe central canal stenosis. Patent AP diameter canal is 4.8 mm. Severe left and moderate to severe right neural foraminal stenosis is present. C5-C6: Disc space narrowing is noted with posterior disc osteophyte complex which indents the right ventral aspect of the cord. There is moderate to severe central canal stenosis. There is severe bilateral neural foraminal stenosis. C6-C7: Disc space narrowing is noted. Posterior disc osteophyte complex effaces the ventral thecal sac. There is severe bilateral neural foraminal stenosis. C7-T1: The central canal and neural foramen are patent. IMPRESSION: 1. Severe multilevel degenerative disc disease and facet arthrosis within the cervical spine. 2. Increased T2 signal within the cervical cord extending from C3 through the C4-C5 level. This represents cord edema, likely due to old compression related to moderate to severe central canal stenosis at C4-C5. In addition, moderate to severe central canal stenosis at C5-C6 and moderate central canal stenosis at C3-C4. Spine surgical consultation is recommended. 3. Severe multilevel neural foraminal stenosis, as above. 4. No cervical spine fracture. Hospital Course (1) Acute left-sided muscle weakness: (2) Fall: (3) Syncope: 61 years old female with past medical history of depression, hypertension present on admission for left-sided weakness and syncope on the night prior to presentation Stroke alert did not call because patient was out of the window for tPA CTA head/neck showed no occlusion, hemodynamically significant stenosis, a neurysm, dissection, or arteriovenous malformation in the major intracranial arteries. CT head showed no acute intracranial abnormality UDS positive for MDMA MRI was initially reported as acute to subacute infarct involving the basal ganglia on the right. However, this was corrected by Radiology as no acute infarct and initial findings represent T2 shine through Aspirin 325mg was given in the ER Due to initial report of infarct, patient was put on aspirin 81 mg daily and Plavix 75 mg daily For her poorly controlled hypertension, lisinopril 10mg daily was started She has been taking lisinopril only as needed and its been a while since she took it. Blood pressure coming down slowly. Hemoglobin A1c is 5.3 Previous MRI brain read was revised by Radiology and was noted not to have any infarct Patient had MRI cervical spine w/ wo co. This noted severe degenerative disease, signs of cervical cord edema from c3-C4/5 Cervical collar was applied Dexamethasone IV ordered Call made to transfer center [facility] and patient accepted for transfer as a trauma patient to the ER. Acceptng Dr is Dr Arnett I called our radiology to upload scans to cloud for [facility] PCP to follow up evaluation and management at [facility] Total Time Total Time Spent Total Time Spent (In Minutes): 25 Total Time Includes: Discharge Planning, Medication Reconciliation and 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 With Other Providers Discharge Plan Discharge Items Patient Disposition: Transfer Acute Care Hospital Reason For Visit: LEFT SIDED WEAKNESS, FALL Discharge Diagnosis: Cervical cord compression Activity: Resume your previous activity Non-emergency contact: Primary Care Provider and Surgeon Call non-emergency contact if: you have any medication questions Follow-up/Referrals: Deysi Coats DO [Primary Care Provider] - Diet: Heart Healthy Addtl Attending Provider Instructions: You are being transferred to [facility] for further evaluation and management as well as surgical evaluation Pending Studies at Discharge: No Stand-Alone Forms: My [facility] Skilled Items Patient informed of condition?: Yes DNR: No Discharge Level of Care: Other Communicable Disease: No Discharge Prognosis: Stable Lines: Peripheral IV Urinary Catheter: No Medications and DC Order Prescriptions: Continued multivitamin Tablet 1 tab PO DAILY RF: 0 fluoxetine [Prozac] 40 mg capsule 40 mg PO DAILY RF: 0 sertraline 100 mg tablet 150 mg PO DAILY RF: 0 ascorbic acid (vitamin C) [Vitamin C] 250 mg Tablet 0 mg PO DAILY RF: 0 ferrous sulfate [iron] 325 mg (65 mg iron) Tablet 325 mg PO DAILY RF: 0 lisinopril 10 mg Tablet 10 mg PO DAILY PRN (Reason: ..) RF: 0 calcium 250 mg Tablet 600 mg PO DAILY RF: 0 vitamin B complex Tablet 1 tab PO DAILY RF: 0 magnesium 250 mg Tablet 0 mg PO DAILY RF: 0 lamotrigine [Lamictal] 100 mg tablet 300 mg PO DAILY RF: 0 omega-3 fatty acids Capsule 1,000 mg PO DAILY RF: 0 bupropion HCl 300 mg tablet extended release 24 hr 300 mg PO DAILY RF: 0 biotin 1 mg Tablet 1 mg PO DAILY RF: 0 Discharge Orders: Discharge Order (Routine); Ordered 03/01/22 Ordered By: Sirisha Hurtado Admission Data Admit Date/Time: 02/28/22 17:12 Attending Provider: Sirisha Hurtado I. Admit Provider: Mc Harper Primary Care Provider: Deysi Coats Other Providers: Jesusita Adame ; Keturah Trevino ; Mc Harper Other Interventions: Discharge Summary Assessment (RN) Last Done: 03/02/22 00:40
[2022-03-01] MEDS ORDERED: dexAMETHasone 8 MG in SYRINGE 0 ML IV SCH (20:00)
[2022-03-01] MEDS ORDERED: PROMETHAZINE HCL 12.5 MG in SODIUM CHLORIDE 0.9% 50 ML IV PRN (20:12)
--- NOTE | 2022-03-01 21:43 | Electrocardiogram Report ---
Test Reason : Blood Pressure : / mmHG Vent. Rate : 069 BPM Atrial Rate : 069 BPM P-R Int : 162 ms QRS Dur : 090 ms QT Int : 408 ms P-R-T Axes : 048 023 018 degrees QTc Int : 437 ms Normal sinus rhythm Possible Anterior infarct , age undetermined Abnormal ECG When compared with ECG of 28-MAY-2017 23:19, No significant change was found Confirmed by Francisco Avila ([id number]) on 03/01/2022 9:43:29 PM Referred By: REFERRED SELF Confirmed By:Francisco Avila
== END 2022-03-02 00:45 | disposition short-term general hospital (02) ==
LOC: ED 13:08 → 2W 13:08 → SUATTDRO 17:12 → 2W 21:34

== ENCOUNTER 2023-01-16 12:36 | Inpatient (IN) ==
--- NOTE | 2023-01-16 12:53 | Emergency Department Note ---
Impression & Plan Acute hyponatremia ED Provider Note Provider: Miguel Mei MD DATE OF SERVICE: 01/16/2023 CHIEF COMPLAINT: Abnormal sodium HISTORY OF PRESENT ILLNESS: Patient is a 62-year-old female presenting from the [facility] [place] presented today for evaluation of hyponatremia found on routine labs. Patient had blood work drawn on the 4 days ago. Found to have a sodium of 123 and sent here for further evaluation. States he has some high blood pressure and was taken off her hydrochlorothiazide approximately a week ago. States she has been eating and drinking okay. Denies significant confusion or nausea or vomiting by her report. Does have some underlying psychiatric history and currently on oxcarbazepine. States at one time in the distant past she had some low sodium but that was quite sometime ago. PAST MEDICAL HISTORY: As noted above MEDICATIONS: reviewed medication list from skilled nursing SOCIAL HISTORY:Inmate at [facility] PHYSICAL EXAM: GENERAL: alert and oriented in no acute distress on stretcher with guards at bedside Head: normocephalic and atraumatic EYES: No injection, discharge or icterus. NECK: Trachea midline. ENT: Mucous membranes pink and moist. LUNGS: Airway patent. No retractions or tachypnea HEART: Regular rate and rhythm. SKIN: Acyanotic, warm, dry, without rashes EXTREMITIES: Without swelling, tenderness or deformity NEUROLOGICAL:No aphasia. No facial droop or slurred speech. EKG: Sinus rhythm first-degree AV block 75 bpm. No PVC or PAC. No acute ST segment elevation or depression with a QTc of 439. Patient's laboratory studies reviewed. Differential includes dehydration, metabolic abnormality, hypo/hyperglycemia, electrolyte disturbance, anemia, hypoxia, cardiac sources, as well as other pathologies. IMPRESSION/MEDICAL DECISION MAKING: Patient without any significant severe symptoms of hyponatremia clinically manifesting. Is on oxcarbazepine that could be contributing to hyponatremia but recently discontinued HCTZ will help not being on this. Do note some hypertension here. Repeat blood work as has been several days since the outpatient blood work found this incidentally. EKG without findings concerning for an acute rhythm abnormality or significant interval abnormality beyond a first-degree heart block. Blood work here without anemia. Slight leukopenia 4. Normal platelets. Blood work shows normal creatinine and AST and ALT. Normal bilirubin. Magnesium normal. Does have some evidence of hyponatremia with a sodium of 124. Again while not having severe symptoms this is significantly low. Do question if possibly her oxcarbazepine is a contributor. States that she uses this to try to help with neuropathic pain from a previous left arm nerve issue as well as to help stabilize her bipolar disorder. Given the finding of fairly significant hyponatremia believe medication optimization evaluation is indicated and ordered some basic IV fluids here. Hospitalist team contacted. DIAGNOSIS: Hyponatremia DISPOSITION: Hospitalist will evaluate Patient was agreeable with this plan. Past Med/Surg History Medical History Closed fracture of head of left humerus Major depressive disorder, recurrent episode Surgical History No pertinent past surgical history Social History Smoking Status: Never smoker Tobacco Type: Cigarettes Second Hand Exposure: No; Do You Dip or Chew Tobacco: No; Hx Alcohol Use: No Hx Substance Use: No Preferred Language: Occitan 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 Ability: Effective [employer] Required: No Beliefs That Will Affect Care: None Current Living Situation: Alone Feels Safe at Home: Yes Assistive Devices: None Allergies Allergies Allergy/AdvReac Type Severity Reaction Status Date / Time hydroxyzine AdvReac Unknown DELIRIUM Verified 02/28/22 16:36 Home Meds Home Medications Medication Instructions Recorded Confirmed sertraline 100 mg tablet 100 mg PO DAILY 02/28/22 06/28/22 Previous Rx's Medication Instructions Recorded tramadol 50 mg tablet 50 mg PO Q6H PRN pain #14 tabs 06/28/22 Results & Data (ED) Vital Signs Vital Signs - 24 hr 01/16/23 12:44 01/16/23 13:56 01/16/23 14:43 Temperature 37.1 C Temperature Source Temporal Artery Scan Pulse Rate 86 Pulse Rate [Apical] 73 75 Pulse Rate from SpO2 Sensor Respiratory Rate 20 19 Respiratory Effort / Characteristics Non-Labored Non-Labored Respiratory Depth Normal Blood Pressure 171/102 H Blood Pressure [Left Arm] 177/102 H 152/101 H Blood Pressure Mean 125 Blood Pressure Mean [Left Arm] 127 118 Pulse Oximetry 99 98 99 Oxygen Delivery Method Room Air Room Air Room Air Sepsis Recent Fever Within 48 Hours No Sepsis New/Unexplained Change in Mental Status N/A Sepsis Action Taken by Nursing No Action Required 01/16/23 15:23 01/16/23 15:22 01/16/23 15:30 Temperature Temperature Source Pulse Rate 72 74 75 Pulse Rate [Apical] Pulse Rate from SpO2 Sensor 74 74 Respiratory Rate 16 19 Respiratory Effort / Characteristics Respiratory Depth Blood Pressure Blood Pressure [Left Arm] Blood Pressure Mean Blood Pressure Mean [Left Arm] Pulse Oximetry 98 99 Oxygen Delivery Method Sepsis Recent Fever Within 48 Hours Sepsis New/Unexplained Change in Mental Status Sepsis Action Taken by Nursing 01/16/23 15:40 01/16/23 15:41 01/16/23 15:41 Temperature Temperature Source Pulse Rate 87 74 Pulse Rate [Apical] Pulse Rate from SpO2 Sensor Respiratory Rate 20 18 Respiratory Effort / Characteristics Respiratory Depth Blood Pressure 188/108 H Blood Pressure [Left Arm] Blood Pressure Mean 134 Blood Pressure Mean [Left Arm] Pulse Oximetry Oxygen Delivery Method Sepsis Recent Fever Within 48 Hours Sepsis New/Unexplained Change in Mental Status Sepsis Action Taken by Nursing Laboratory Data 01/16/23 13:05 01/16/23 13:05 Lab Results 01/16/23 01/16/23 01/16/23 Range/Units 13:05 13:05 13:05 WBC 4.03 L (4.8-10.8) K/ul RBC 3.86 L (4.20-5.40) M/uL Hgb 12.0 (12.0-16.0) g/dl Hct 34.2 L (37.0-47.0) % MCV 88.6 (80.0-100.0) fL MCH 31.1 (25.0-34.0) pg MCHC 35.1 (32.0-36.0) g/dL RDW Std Deviation 37.7 (36.4-46.3) fL RDW Coeff of Eugenie 11.8 (11.5-14.5) % Plt Count 283 (130-400) K/uL MPV 8.8 L (9.4-12.4) fL Immature Gran % (Auto) 0.2 % Neut % (Auto) 57.6 % Lymph % (Auto) 27.3 % [place] % (Auto) 10.2 % Eos % (Auto) 3.5 % Baso % (Auto) 1.2 % Neut # (Auto) 2.32 (1.40-6.50) K/uL Lymph # (Auto) 1.10 L (1.2-3.4) K/uL [place] # (Auto) 0.41 (0.11-0.59) K/uL Eos # (Auto) 0.14 (0-0.50) K/uL Baso # (Auto) 0.05 (0-0.2) K/uL Immature Gran # (Auto) 0.01 (0.01-0.20) K/uL Sodium 124 L (136-145) mmol/L Potassium 4.5 (3.5-5.1) mmol/L Chloride 92 L (98-107) mmol/L Carbon Dioxide 23 (21-32) mmol/L Anion Gap 9 (3-11) BUN 11 (6-23) mg/dl Creatinine 0.42 L (0.6-1.2) mg/dl Est Cr Clr Drug Dosing 128.5 ml/min Est GFR ( Amer) 125.5 ml/min Est GFR (Non-Af Amer) 108.3 ml/min BUN/Creatinine Ratio 26.2 H (10-20) Glucose 84 (70-99(Fasting)) mg/dl Osmolality 260 L (280-300) mOsm/kg Calcium 8.6 (8.6-10.3) mg/dl Magnesium 1.9 (1.7-2.4) mg/dl Total Bilirubin 0.4 (0.2-1.0) mg/dl AST 20 (13-39) U/L ALT 16 (7-52) U/L Alkaline Phosphatase 133 H (34-104) U/L Total Protein 6.9 (6.0-8.3) gm/dl Albumin 4.4 (3.4-5.0) gm/dl Globulin 2.5 (2.5-4.0) gm/dl Albumin/Globulin Ratio 1.8 (0.9-2) Urine Osmolality (500-800) mOsm/kg Ur Random Sodium mmol/L SARS-CoV-2, RNA, NAAT (NEGATIVE) 01/16/23 01/16/23 01/16/23 Range/Units 13:57 14:05 15:10 WBC (4.8-10.8) K/ul RBC (4.20-5.40) M/uL Hgb (12.0-16.0) g/dl Hct (37.0-47.0) % MCV (80.0-100.0) fL MCH (25.0-34.0) pg MCHC (32.0-36.0) g/dL RDW Std Deviation (36.4-46.3) fL RDW Coeff of Eugenie (11.5-14.5) % Plt Count (130-400) K/uL MPV (9.4-12.4) fL Immature Gran % (Auto) % Neut % (Auto) % Lymph % (Auto) % [place] % (Auto) % Eos % (Auto) % Baso % (Auto) % Neut # (Auto) (1.40-6.50) K/uL Lymph # (Auto) (1.2-3.4) K/uL [place] # (Auto) (0.11-0.59) K/uL Eos # (Auto) (0-0.50) K/uL Baso # (Auto) (0-0.2) K/uL Immature Gran # (Auto) (0.01-0.20) K/uL Sodium (136-145) mmol/L Potassium (3.5-5.1) mmol/L Chloride (98-107) mmol/L Carbon Dioxide (21-32) mmol/L Anion Gap (3-11) BUN (6-23) mg/dl Creatinine (0.6-1.2) mg/dl Est Cr Clr Drug Dosing ml/min Est GFR ( Amer) ml/min Est GFR (Non-Af Amer) ml/min BUN/Creatinine Ratio (10-20) Glucose (70-99(Fasting)) mg/dl Osmolality (280-300) mOsm/kg Calcium (8.6-10.3) mg/dl Magnesium (1.7-2.4) mg/dl Total Bilirubin (0.2-1.0) mg/dl AST (13-39) U/L ALT (7-52) U/L Alkaline Phosphatase (34-104) U/L Total Protein (6.0-8.3) gm/dl Albumin (3.4-5.0) gm/dl Globulin (2.5-4.0) gm/dl Albumin/Globulin Ratio (0.9-2) Urine Osmolality 247 L (500-800) mOsm/kg Ur Random Sodium 43 mmol/L SARS-CoV-2, RNA, NAAT NEGATIVE (NEGATIVE) Administered Medications Sodium Chloride (Nss) 500 mls @ 80 mls/hr IV .[id number] RENNY Stop: 02/15/23 15:14 Last Admin: 01/16/23 15:14 Dose: 80 mls/hr Documented By: BRAYDON Discharge Plan Visit Data Chief Complaint: Abnormal Labs/Diagnostic Testing Stated Complaint: LOW SODIUM ED Provider: Miguel Mei Discharge Problem: Acute hyponatremia Patient Disposition: Being Evaluated by Hospitalist Forms Stand Alone Forms: My [facility] Prescriptions Prescriptions: No Action sertraline 100 mg tablet 100 mg PO DAILY tramadol 50 mg tablet 50 mg PO Q6H PRN (Reason: pain) Qty: 14 0RF Referrals Referrals: [facility] [Non-Staff] -
[2023-01-16 14:38] LABS: Basophils # (auto) 0.05 K/uL (0-0.2); Basophils % (auto) 1.2 %; Eosinophils # (auto) 0.14 K/uL (0-0.50); Eosinophils % (auto) 3.5 %; Hematocrit (blood only) 34.2 % (37.0-47.0); Immature Granulocytes # (auto) 0.01 K/uL (0.01-0.20); Immature Granulocytes % (auto) 0.2 %; Lymphocytes % (auto) 27.3 %; Mean Corpuscular Hemoglobin 31.1 pg (25.0-34.0); Mean Corpuscular Hgb Conc 35.1 g/dL (32.0-36.0); Mean Corpuscular Volume 88.6 fL (80.0-100.0); Mean Platelet Volume 8.8 fL (9.4-12.4); Monocytes # (auto) 0.41 K/uL (0.11-0.59); Monocytes % (auto) 10.2 %; Neutrophils # (auto) 2.32 K/uL (1.40-6.50); Neutrophils % (auto) 57.6 %; Platelet Count 283 K/uL (130-400); RDW Coefficient of Variation 11.8 % (11.5-14.5); RDW Standard Deviation 37.7 fL (36.4-46.3); Red Blood Count 3.86 M/uL (4.20-5.40); White Blood Count 4.03 K/ul (4.8-10.8)
[2023-01-16 14:50] LABS: Albumin Globulin Ratio 1.8 (0.9-2); Albumin Level 4.4 gm/dl (3.4-5.0); BUN Creatinine Ratio 26.2 (10-20); Bilirubin,Total 0.4 mg/dl (0.2-1.0); Calcium 8.6 mg/dl (8.6-10.3); Creatinine Clr Calc Pharmacy 128.5 ml/min; Est GFR (African American) 125.5 ml/min; Est GFR (Non-African American) 108.3 ml/min; Globulin 2.5 gm/dl (2.5-4.0); Magnesium 1.9 mg/dl (1.7-2.4); Potassium 4.5 mmol/L (3.5-5.1); Total Protein 6.9 gm/dl (6.0-8.3)
--- NOTE | 2023-01-16 15:14 | Electrocardiogram Report ---
Test Reason : Blood Pressure : / mmHG Vent. Rate : 075 BPM Atrial Rate : 075 BPM P-R Int : 210 ms QRS Dur : 086 ms QT Int : 394 ms P-R-T Axes : 044 039 037 degrees QTc Int : 439 ms Sinus rhythm with 1st degree A-V block Otherwise normal ECG When compared with ECG of 27-JUN-2022 22:09, MD interval has increased Confirmed by Vipul Carney ([id number]) on 01/16/2023 3:14:47 PM Referred By: [facility] Confirmed By:Vipul Carney
[2023-01-16] MEDS ORDERED: SODIUM CHLORIDE 0.9% 500 ML IV SCH (15:15)
--- NOTE | 2023-01-16 16:29 | History & Physical Report ---
Date of Service January 16, 2023 Assessment & Plan (1) Acute hyponatremia: (2) Closed fracture of head of left humerus: (3) HTN (hypertension): (4) Major depressive disorder, recurrent episode: (5) Neuropathic pain: Plan This is a 62-year-old female from [facility] presents with PMH of hypertension, spinal stenosis of cervical region and myelopathy with chronic pain, history of trauma to right shoulder with neuropathic pain, history of CVA, mood disorder and other medical problems listed below who presents from presented with hyponatremia. Hyponatremia Chronicity unclear but recent labwork from 01/13 with Na 123. Reportedly hctz has been on hold for 1 week Hypotonic, euvolemic hyponatremia - serum osm 260, urine osm 247, urine sodium 43 Recent increased water intake, possible side effect from oxcarbazepine - hold medication, fluid restrict at 1.5 L Nephrology consulted, repeat Na 125 this evening. Continue to trend Oxycarbazepine level pending HTN Hctz discontinued 1 week ago. Continue lisinopril, PRN hydralazine for now Neuropathic pain 2/2 LUE injury L shoulder 3 view due to continue pain from old injury Holding oxcarbazepine due to its likey contribution to hyponatremia Continue PRN tylenol, ibuprofen Mood disorder Continue Zyprexa, Zoloft DVT Ppx: SQ lovenox Code status: FULL PCP: [facility] Dispo: Admitted to PCU Patient seen in collaboration with Dr. Moulton. Please see addendum. I spent a total of 75 minutes coordinating, documenting, and providing care for this patient excluding time spent in the performance of separately billed services. History of Present Illness Chief Complaint: Abnormal labs Primary Care Provider: [facility] This is a 62-year-old female from [facility] presents with PMH of hypertension, spinal stenosis of cervical region and myelopathy with chronic pain, history of trauma to right shoulder with neuropathic pain, history of CVA, mood disorder and other medical problems listed below who presents from presented with abnormal lab work. Patient was discontinued from hydrochlorothiazide a week ago for an unknown reason and had blood work done 3 days ago that showed a sodium of 124. Repeat sodium from earlier today was 123 and patient was directed to ED for further evaluation. Endorses headache and feeling "fuzzy" but denies any lizzette confusion, nausea or vomiting. Does endorse recent muscle cramps. Denies any history of low sodium in the past. Has been drinking more water and coffee in the past few weeks, approximately 70 to 80 ounces daily of total liquid. Is on oxcarbazepine for paresthesias of right upper extremity following arm injury and has been on this medication for 6 months. Denies any fever, chills, lightheadedness, chest pain, shortness of breath, nausea, vomiting, abdominal pain, dysuria, diarrhea or constipation. Allergies Allergy/AdvReac Type Severity Reaction Status Date / Time hydroxyzine AdvReac Unknown DELIRIUM Verified 02/28/22 16:36 Home Medications Medication Instructions Recorded Confirmed Type acetaminophen 500 mg tablet 500 mg PO BID PRN Pain 01/16/23 01/16/23 History ascorbic acid (vitamin C) 500 mg 500 mg PO DAILY 01/16/23 01/16/23 History tablet (Vitamin C) cetirizine 10 mg tablet 10 mg PO DAILY 01/16/23 01/16/23 History cholecalciferol (vitamin D3) 25 25 mcg PO DAILY 01/16/23 01/16/23 History mcg (1,000 unit) tablet (Vitamin D3) folic acid 1 mg tablet 1 mg PO DAILY 01/16/23 01/16/23 History ibuprofen 600 mg tablet 600 mg PO TID 01/16/23 01/16/23 History lisinopril 40 mg tablet 40 mg PO DAILY 01/16/23 01/16/23 History multivitamin 1 tab PO DAILY 01/16/23 01/16/23 History olanzapine 5 mg tablet (Zyprexa) 10 mg PO HS 01/16/23 01/16/23 History oxcarbazepine 150 mg 300 mg PO BID 01/16/23 01/16/23 History tablet,extended release 24 hr potassium chloride 20 mEq 20 meq PO BID 01/16/23 01/16/23 History tablet,extended release sertraline 50 mg tablet (Zoloft) 150 mg PO HS 01/16/23 01/16/23 History thiamine HCl (vitamin B1) 100 mg 100 mg PO DAILY 01/16/23 01/16/23 History tablet zinc 50 mg capsule 50 mg PO DAILY 01/16/23 01/16/23 History Past Med/Surg History Medical History (Updated 01/16/23 @ 21:20 by Mitali De La Cruz PA-C) Alcohol use disorder History of CVA (cerebrovascular accident) HTN (hypertension) Major depressive disorder, recurrent episode Neuropathic pain Surgical History (Updated 01/16/23 @ 21:16 by Mitali De La Cruz PA-C) H/O cervical spine surgery Humeral fracture s.p ORIF Family History Other Asthma Depression Diabetes Social History (Updated 01/16/23 @ 21:18 by Mitali De La Cruz PA-C) Smoking Status: Current some day smoker Tobacco Type: Cigarettes Second Hand Exposure: No; Do You Dip or Chew Tobacco: No; Hx Alcohol Use: No Hx Substance Use: No Preferred Language: Persian 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 Ability: Effective [employer] Required: No Beliefs That Will Affect Care: None Current Living Situation: Other Current Living Situation Comment: Pt has been in [facility] for 7 months Feels Safe at Home: Yes Assistive Devices: None Review of Systems Review of Systems: At least ten systems reviewed and negative except as noted in the HPI. Physical Exam Constitutional: General Appearance: WD/WN, vitals as above, NAD, sitting up in bed, pleasant, conversing easily Head: normocephalic, atraumatic Eyes: normal inspection, PERRL, conjunctivae normal, anicteric sclerae ENT: external ear and nose normal, oropharynx normal Neck: normal visual inspection, trachea midline, no thyromegaly Respiratory: normal respiratory effort, lungs clear to auscultation, no wheeze, rales, rhonchi. No accessory muscle use Cardiovascular: regular rate, rhythm, no murmur, normal peripheral pulses, no BLE edema. Vessels: no JVD Chest: normal inspection of chest Abdomen/GI: normal bowel sounds, soft, nontender, no hepatosplenomegaly Extremities/Musculoskeletal: no cyanosis or clubbing, extremities motor strength 5/5. LUE with reduced mobility (chronic), L foot drop (chronic) Neurologic: PERRL, EOMI, accommodation nl, no face palsy, no dysarthria, CN's I I-XI intact bilaterally and moves all extremities Psychiatric: A+Ox3, euthymic affect Skin: no rashes, normal color, warm/dry Results & Data Results & Data Vital Signs (Past 12 Hours) Vital Signs Temp Pulse Pulse Resp BP BP Pulse Ox 01/16/23 15:41 74 18 01/16/23 15:41 188/108 H 01/16/23 15:40 87 20 01/16/23 15:30 75 19 99 01/16/23 15:22 74 16 98 01/16/23 15:23 72 01/16/23 14:43 75 152/101 H 99 01/16/23 13:56 73 19 177/102 H 98 01/16/23 12:44 37.1 C 86 20 171/102 H 99 O2 Del Method 01/16/23 15:41 01/16/23 15:41 01/16/23 15:40 01/16/23 15:30 01/16/23 15:22 01/16/23 15:23 01/16/23 14:43 Room Air 01/16/23 13:56 Room Air 01/16/23 12:44 Room Air ECG Additional Comments: EKG reviewed. Normal sinus rhythm, no significant change from previous Code Status & VTE Plan VTE Prophylaxis Plan VTE Prophylaxis will be ordered: Yes Supervising Physician Co-Signing Physician Notes Patient was seen and examined independently. Chart reviewed. Case discussed with JASON (2) Closed fracture of head of left humerus Encounter type: initial encounter Qualified Code(s): S42.292A - Other displaced fracture of upper end of left humerus, initial encounter for closed fracture
[2023-01-16] MEDS ORDERED: POLYETHYLENE (MIRALAX) 17 GM PACK PO PRN (18:16)
[2023-01-16] MEDS ORDERED: ONDANSETRON INJ 2 MG/ML 2 ML VIAL IV PRN (18:16)
[2023-01-16] MEDS ORDERED: ACETAMINOPHEN 325 MG TAB PO PRN (18:16)
[2023-01-16] MEDS: ENOXAPARIN INJ 40 MG/0.4 ML SYR SQ SCH ×2 (18:45→18:47)
[2023-01-16] MEDS ORDERED: hydrALAZINE HCL 20 MG/ML VIAL IV PRN (19:06)
[2023-01-16 19:24] LABS: BUN Creatinine Ratio 15.9 (10-20); Creatinine Clr Calc Pharmacy 121.1 ml/min; Est GFR (African American) 123.6 ml/min; Est GFR (Non-African American) 106.7 ml/min; Potassium 4.2 mmol/L (3.5-5.1)
[2023-01-16] MEDS: IBUPROFEN 600 MG TAB PO SCH (22:24)
[2023-01-16] MEDS: OLANZapine 10 MG TAB PO SCH (22:24)
[2023-01-16] MEDS: SERTRALINE HCL 50 MG TABLET PO SCH (22:25)
[2023-01-17 06:36] LABS: Hematocrit (blood only) 31.3 % (37.0-47.0); Hemoglobin 11.2 g/dl (12.0-16.0); Mean Corpuscular Hemoglobin 31.5 pg (25.0-34.0); Mean Corpuscular Hgb Conc 35.8 g/dL (32.0-36.0); Mean Corpuscular Volume 87.9 fL (80.0-100.0); Mean Platelet Volume 8.5 fL (9.4-12.4); Platelet Count 229 K/uL (130-400); RDW Coefficient of Variation 11.7 % (11.5-14.5); RDW Standard Deviation 37.5 fL (36.4-46.3); Red Blood Count 3.56 M/uL (4.20-5.40); White Blood Count 3.15 K/ul (4.8-10.8)
[2023-01-17 06:47] LABS: BUN Creatinine Ratio 14.6 (10-20); Calcium 9.1 mg/dl (8.6-10.3); Creatinine Clr Calc Pharmacy 109.5 ml/min; Est GFR (African American) 120.1 ml/min; Est GFR (Non-African American) 103.7 ml/min; Potassium 4.2 mmol/L (3.5-5.1)
--- NOTE | 2023-01-17 06:55 | XRay Report ---
XR shoulder LT min 2V routine CLINICAL HISTORY: history of ORIF left shoulder. now with pain. COMPARISON STUDY: CT left shoulder 06/28/2022. FINDINGS: Status post internal fixation of an old, healed left humeral neck fracture with a lateral c ortical plate and screws. The hardware appears intact. No abnormal periprosthetic lucency. No acute f racture or dislocation of the left shoulder. There is severe cartilage space narrowing with bone-on-b one articulation, subchondral sclerosis, marginal osteophytes at the clinic or joint consistent with degenerative change. The left clavicle is intact. No significant soft tissue swelling. There are old, healed left lower rib fractures noted. IMPRESSION: 1. Status post internal fixation of an old, healed left humeral neck fracture. The hardware appears i ntact. 2. Severe osteoarthritis at the left glenohumeral joint. 3. No acute fracture or dislocation. ACT 112: Negative or not required by law. Electronically signed by: Bhavin Angulo M.D. 01/17/2023 6:53 AM
--- NOTE | 2023-01-17 08:01 | Hospitalist Progress Note ---
Date of Service January 17, 2023 Assessment & Plan (1) Acute hyponatremia: (2) Closed fracture of head of left humerus: (3) HTN (hypertension): (4) Major depressive disorder, recurrent episode: (5) Neuropathic pain: Plan This is a 62 yo F from [facility] presents with hypertension, spinal stenosis of cervical region and myelopathy with chronic pain, history of trauma to right shoulder with neuropathic pain, history of CVA, mood disorder and other medical problems listed below who presents from presented with hyponatremia. Hyponatremia Chronicity unclear but recent labwork from 01/13 with Na 123 on admission. Reportedly HCTZ has been on hold for 1 week. serum osm 260, urine osm 247, urine sodium 43 Recent increased water intake, low protein diet, ? possible side effect from oxcarbazepine - hold medication initially, fluid restrict at 1.5 L Nephrology consulted - c/w siadh, cont. FR as above, recommend higher protein diet, ok to cont. oxcarbazepine Oxycarbazepine level pending HTN Hctz discontinued 1 week ago. Continue lisinopril, PRN hydralazine for now Neuropathic pain 2/2 LUE injury L shoulder 3 view due to continue pain from old injury Holding oxcarbazepine initially due to its likely contribution to hyponatremia, discussed w/ nephrology - will resume Continue PRN tylenol, ibuprofen Mood disorder Continue Zyprexa, Zoloft DVT Ppx: SQ lovenox Code status: FULL PCP: [facility] Long-Term Dispo: PCU Admission and Anticipated Discharge Date Admission Date: January 16, 2023 Subjective Pt seen in follow up of hyponatremia Currently laying in bed, in no acute distress No fevers chills chest pain shortness of breath Reports having some muscle cramps for some time No abdominal pain nausea vomiting, no constipation diarrhea Discussed with nephrology, likely SIADH, fluid restriction ordered, higher protein diet recommended, okay to continue oxcarbazepine Review of Systems Review of Systems: All systems reviewed & are unremarkable except as noted in Subjective Physical Exam Physical Exam: General Appearanc e:WD/WN, in NAD Head: normocephal ic, atraumatic Eye s:normal inspect ion, PERRL, conjun ctivae normal, ani cteric sclerae ENT : external ear an d nose normal, shawn pharynx normal Nec k: normal visual inspection Respir atory:normal resp iratory effort, alden ngs clear to auscu ltation, no wheeze , rales, rhonchi. No accessory musc le use Cardiovascu lar: regular rate , rhythm, no murmu r, normal peripher al pulses, no BLE edema. Vessels: no JVD Chest: dior l inspection of ch est Abdomen/GI: n ormal bowel sounds , soft, nontender Extremities/Muscul oskeletal: moves extremities. LUE w ith reduced mobili ty (chronic), L fo ot drop (chronic) Neurologic: PERRL , EOMI, no face pa lsy, no dysarthria , moves all extrem ities Psychiatric: A+Ox3, euthymic affect Skin: dior l color, warm/dry Results & Data Results & Data Vital Signs (Past 12 Hours) Vital Signs Temp Pulse Pulse Resp BP Pulse Ox O2 Del Method 01/17/23 04:07 36.8 C 86 18 133/78 96 Room Air 01/16/23 22:00 72 01/16/23 23:59 36.6 C 70 18 164/107 H 97 Room Air Laboratory Results 01/17/23 01/17/23 01/16/23 Range/Units 06:10 06:10 23:50 WBC 3.15 L (4.8-10.8) K/ul RBC 3.56 L (4.20-5.40) M/uL Hgb 11.2 L (12.0-16.0) g/dl Hct 31.3 L (37.0-47.0) % MCV 87.9 (80.0-100.0) fL MCH 31.5 (25.0-34.0) pg MCHC 35.8 (32.0-36.0) g/dL RDW Std Deviation 37.5 (36.4-46.3) fL RDW Coeff of Eugenie 11.7 (11.5-14.5) % Plt Count 229 (130-400) K/uL MPV 8.5 L (9.4-12.4) fL Immature Gran % (Auto) % Neut % (Auto) % Lymph % (Auto) % [place] % (Auto) % Eos % (Auto) % Baso % (Auto) % Neut # (Auto) (1.40-6.50) K/uL Lymph # (Auto) (1.2-3.4) K/uL [place] # (Auto) (0.11-0.59) K/uL Eos # (Auto) (0-0.50) K/uL Baso # (Auto) (0-0.2) K/uL Immature Gran # (Auto) (0.01-0.20) K/uL Sodium 128 L (136-145) mmol/L Potassium 4.2 (3.5-5.1) mmol/L Chloride 94 L (98-107) mmol/L Carbon Dioxide 28 (21-32) mmol/L Anion Gap 6 (3-11) BUN 7 (6-23) mg/dl Creatinine 0.48 L (0.6-1.2) mg/dl Est Cr Clr Drug Dosing 109.5 ml/min Est GFR ( Amer) 120.1 ml/min Est GFR (Non-Af Amer) 103.7 ml/min BUN/Creatinine Ratio 14.6 (10-20) Glucose 87 (70-99(Fasting)) mg/dl Osmolality (280-300) mOsm/kg Calcium 9.1 (8.6-10.3) mg/dl Magnesium (1.7-2.4) mg/dl Total Bilirubin (0.2-1.0) mg/dl AST (13-39) U/L ALT (7-52) U/L Alkaline Phosphatase (34-104) U/L Total Protein (6.0-8.3) gm/dl Albumin (3.4-5.0) gm/dl Globulin (2.5-4.0) gm/dl Albumin/Globulin Ratio (0.9-2) TSH (0.300-4.500) uIu/ml Urine Osmolality (500-800) mOsm/kg Ur Random Sodium mmol/L Nasal Screen MRSA (PCR) Negative (Negative) 10-Hydroxycarbazepine Hepatitis C Ab (EIA) Hep C Ab Signal/Cutoff SARS-CoV-2, RNA, NAAT (NEGATIVE) 01/16/23 01/16/23 01/16/23 Range/Units 18:42 18:42 15:10 WBC (4.8-10.8) K/ul RBC (4.20-5.40) M/uL Hgb (12.0-16.0) g/dl Hct (37.0-47.0) % MCV (80.0-100.0) fL MCH (25.0-34.0) pg MCHC (32.0-36.0) g/dL RDW Std Deviation (36.4-46.3) fL RDW Coeff of Eugenie (11.5-14.5) % Plt Count (130-400) K/uL MPV (9.4-12.4) fL Immature Gran % (Auto) % Neut % (Auto) % Lymph % (Auto) % [place] % (Auto) % Eos % (Auto) % Baso % (Auto) % Neut # (Auto) (1.40-6.50) K/uL Lymph # (Auto) (1.2-3.4) K/uL [place] # (Auto) (0.11-0.59) K/uL Eos # (Auto) (0-0.50) K/uL Baso # (Auto) (0-0.2) K/uL Immature Gran # (Auto) (0.01-0.20) K/uL Sodium 125 L (136-145) mmol/L Potassium 4.2 (3.5-5.1) mmol/L Chloride 92 L (98-107) mmol/L Carbon Dioxide 26 (21-32) mmol/L Anion Gap 7 (3-11) BUN 7 (6-23) mg/dl Creatinine 0.44 L (0.6-1.2) mg/dl Est Cr Clr Drug Dosing 121.1 ml/min Est GFR ( Amer) 123.6 ml/min Est GFR (Non-Af Amer) 106.7 ml/min BUN/Creatinine Ratio 15.9 (10-20) Glucose 90 (70-99(Fasting)) mg/dl Osmolality (280-300) mOsm/kg Calcium 9.0 (8.6-10.3) mg/dl Magnesium (1.7-2.4) mg/dl Total Bilirubin (0.2-1.0) mg/dl AST (13-39) U/L ALT (7-52) U/L Alkaline Phosphatase (34-104) U/L Total Protein (6.0-8.3) gm/dl Albumin (3.4-5.0) gm/dl Globulin (2.5-4.0) gm/dl Albumin/Globulin Ratio (0.9-2) TSH (0.300-4.500) uIu/ml Urine Osmolality (500-800) mOsm/kg Ur Random Sodium mmol/L Nasal Screen MRSA (PCR) (Negative) 10-Hydroxycarbazepine Hepatitis C Ab (EIA) Pending Hep C Ab Signal/Cutoff Pending SARS-CoV-2, RNA, NAAT NEGATIVE (NEGATIVE) 01/16/23 01/16/23 01/16/23 Range/Units 14:05 13:57 13:05 WBC (4.8-10.8) K/ul RBC (4.20-5.40) M/uL Hgb (12.0-16.0) g/dl Hct (37.0-47.0) % MCV (80.0-100.0) fL MCH (25.0-34.0) pg MCHC (32.0-36.0) g/dL RDW Std Deviation (36.4-46.3) fL RDW Coeff of Eugenie (11.5-14.5) % Plt Count (130-400) K/uL MPV (9.4-12.4) fL Immature Gran % (Auto) % Neut % (Auto) % Lymph % (Auto) % [place] % (Auto) % Eos % (Auto) % Baso % (Auto) % Neut # (Auto) (1.40-6.50) K/uL Lymph # (Auto) (1.2-3.4) K/uL [place] # (Auto) (0.11-0.59) K/uL Eos # (Auto) (0-0.50) K/uL Baso # (Auto) (0-0.2) K/uL Immature Gran # (Auto) (0.01-0.20) K/uL Sodium (136-145) mmol/L Potassium (3.5-5.1) mmol/L Chloride (98-107) mmol/L Carbon Dioxide (21-32) mmol/L Anion Gap (3-11) BUN (6-23) mg/dl Creatinine (0.6-1.2) mg/dl Est Cr Clr Drug Dosing ml/min Est GFR ( Amer) ml/min Est GFR (Non-Af Amer) ml/min BUN/Creatinine Ratio (10-20) Glucose (70-99(Fasting)) mg/dl Osmolality (280-300) mOsm/kg Calcium (8.6-10.3) mg/dl Magnesium (1.7-2.4) mg/dl Total Bilirubin (0.2-1.0) mg/dl AST (13-39) U/L ALT (7-52) U/L Alkaline Phosphatase (34-104) U/L Total Protein (6.0-8.3) gm/dl Albumin (3.4-5.0) gm/dl Globulin (2.5-4.0) gm/dl Albumin/Globulin Ratio (0.9-2) TSH 0.894 (0.300-4.500) uIu/ml Urine Osmolality 247 L (500-800) mOsm/kg Ur Random Sodium 43 mmol/L Nasal Screen MRSA (PCR) (Negative) 10-Hydroxycarbazepine Hepatitis C Ab (EIA) Hep C Ab Signal/Cutoff SARS-CoV-2, RNA, NAAT (NEGATIVE) 01/16/23 01/16/23 01/16/23 Range/Units 13:05 13:05 13:05 WBC 4.03 L (4.8-10.8) K/ul RBC 3.86 L (4.20-5.40) M/uL Hgb 12.0 (12.0-16.0) g/dl Hct 34.2 L (37.0-47.0) % MCV 88.6 (80.0-100.0) fL MCH 31.1 (25.0-34.0) pg MCHC 35.1 (32.0-36.0) g/dL RDW Std Deviation 37.7 (36.4-46.3) fL RDW Coeff of Eugenie 11.8 (11.5-14.5) % Plt Count 283 (130-400) K/uL MPV 8.8 L (9.4-12.4) fL Immature Gran % (Auto) 0.2 % Neut % (Auto) 57.6 % Lymph % (Auto) 27.3 % [place] % (Auto) 10.2 % Eos % (Auto) 3.5 % Baso % (Auto) 1.2 % Neut # (Auto) 2.32 (1.40-6.50) K/uL Lymph # (Auto) 1.10 L (1.2-3.4) K/uL [place] # (Auto) 0.41 (0.11-0.59) K/uL Eos # (Auto) 0.14 (0-0.50) K/uL Baso # (Auto) 0.05 (0-0.2) K/uL Immature Gran # (Auto) 0.01 (0.01-0.20) K/uL Sodium 124 L (136-145) mmol/L Potassium 4.5 (3.5-5.1) mmol/L Chloride 92 L (98-107) mmol/L Carbon Dioxide 23 (21-32) mmol/L Anion Gap 9 (3-11) BUN 11 (6-23) mg/dl Creatinine 0.42 L (0.6-1.2) mg/dl Est Cr Clr Drug Dosing 128.5 ml/min Est GFR ( Amer) 125.5 ml/min Est GFR (Non-Af Amer) 108.3 ml/min BUN/Creatinine Ratio 26.2 H (10-20) Glucose 84 (70-99(Fasting)) mg/dl Osmolality 260 L (280-300) mOsm/kg Calcium 8.6 (8.6-10.3) mg/dl Magnesium 1.9 (1.7-2.4) mg/dl Total Bilirubin 0.4 (0.2-1.0) mg/dl AST 20 (13-39) U/L ALT 16 (7-52) U/L Alkaline Phosphatase 133 H (34-104) U/L Total Protein 6.9 (6.0-8.3) gm/dl Albumin 4.4 (3.4-5.0) gm/dl Globulin 2.5 (2.5-4.0) gm/dl Albumin/Globulin Ratio 1.8 (0.9-2) TSH (0.300-4.500) uIu/ml Urine Osmolality (500-800) mOsm/kg Ur Random Sodium mmol/L Nasal Screen MRSA (PCR) (Negative) 10-Hydroxycarbazepine Hepatitis C Ab (EIA) Hep C Ab Signal/Cutoff SARS-CoV-2, RNA, NAAT (NEGATIVE) 01/16/23 Range/Units 13:05 WBC (4.8-10.8) K/ul RBC (4.20-5.40) M/uL Hgb (12.0-16.0) g/dl Hct (37.0-47.0) % MCV (80.0-100.0) fL MCH (25.0-34.0) pg MCHC (32.0-36.0) g/dL RDW Std Deviation (36.4-46.3) fL RDW Coeff of Eugenie (11.5-14.5) % Plt Count (130-400) K/uL MPV (9.4-12.4) fL Immature Gran % (Auto) % Neut % (Auto) % Lymph % (Auto) % [place] % (Auto) % Eos % (Auto) % Baso % (Auto) % Neut # (Auto) (1.40-6.50) K/uL Lymph # (Auto) (1.2-3.4) K/uL [place] # (Auto) (0.11-0.59) K/uL Eos # (Auto) (0-0.50) K/uL Baso # (Auto) (0-0.2) K/uL Immature Gran # (Auto) (0.01-0.20) K/uL Sodium (136-145) mmol/L Potassium (3.5-5.1) mmol/L Chloride (98-107) mmol/L Carbon Dioxide (21-32) mmol/L Anion Gap (3-11) BUN (6-23) mg/dl Creatinine (0.6-1.2) mg/dl Est Cr Clr Drug Dosing ml/min Est GFR ( Amer) ml/min Est GFR (Non-Af Amer) ml/min BUN/Creatinine Ratio (10-20) Glucose (70-99(Fasting)) mg/dl Osmolality (280-300) mOsm/kg Calcium (8.6-10.3) mg/dl Magnesium (1.7-2.4) mg/dl Total Bilirubin (0.2-1.0) mg/dl AST (13-39) U/L ALT (7-52) U/L Alkaline Phosphatase (34-104) U/L Total Protein (6.0-8.3) gm/dl Albumin (3.4-5.0) gm/dl Globulin (2.5-4.0) gm/dl Albumin/Globulin Ratio (0.9-2) TSH (0.300-4.500) uIu/ml Urine Osmolality (500-800) mOsm/kg Ur Random Sodium mmol/L Nasal Screen MRSA (PCR) (Negative) 10-Hydroxycarbazepine Pending Hepatitis C Ab (EIA) Hep C Ab Signal/Cutoff SARS-CoV-2, RNA, NAAT (NEGATIVE) Medications Administered Current Inpatient Medications Acetaminophen (Acetaminophen 325 Mg Tab) 650 mg PO Q4H PRN PRN Reason: Pain or Fever Stop: 02/15/23 18:15 Last Admin: 01/16/23 21:02 Dose: 650 mg Ascorbic Acid (Ascorbic Acid 500 Mg Tab) 500 mg PO DAILY RENNY Stop: 02/16/23 08:59 Cetirizine HCl (Cetirizine Hcl 10 Mg Tablet) 10 mg PO DAILY RENNY Stop: 02/16/23 08:59 Enoxaparin Sodium (Enoxaparin Inj 40 Mg/0.4 Ml Syr) 40 mg SQ DAILY RENNY Stop: 02/16/23 08:59 Folic Acid (Folic Acid 1 Mg Tab) 1 mg PO DAILY RENNY Stop: 02/16/23 08:59 Hydralazine HCl (Hydralazine Hcl 20 Mg/Ml Vial) 5 mg IV Q6H PRN PRN Reason: blood pressure Stop: 02/15/23 19:05 Ibuprofen (Ibuprofen 600 Mg Tab) 600 mg PO TID RENNY Stop: 02/15/23 21:09 Last Admin: 01/16/23 22:24 Dose: 600 mg Lisinopril (Lisinopril 40 Mg Tab) 40 mg PO DAILY RENNY Stop: 02/16/23 08:59 Multivitamins (Multivitamin Tab) 1 tab PO DAILY RENNY Stop: 02/16/23 08:59 Olanzapine (Olanzapine 10 Mg Tab) 10 mg PO HS RENNY Stop: 02/15/23 21:09 Last Admin: 01/16/23 22:24 Dose: 10 mg Ondansetron HCl (Ondansetron Inj 2 Mg/Ml 2 Ml Vial) 4 mg IV Q6H PRN PRN Reason: Nausea Stop: 02/15/23 18:15 Polyethylene Glycol (Polyethylene (Miralax) 17 Gm Pack) 17 gm PO DAILY PRN PRN Reason: Constipation Stop: 02/15/23 18:15 Potassium Chloride (Potassium Chloride Crtab 20 Meq Tabcr) 20 meq PO BID RENNY Stop: 02/16/23 08:59 Sertraline HCl (Sertraline Hcl 50 Mg Tablet) 150 mg PO HS RENNY Stop: 02/15/23 21:09 Last Admin: 01/16/23 22:25 Dose: 150 mg Thiamine HCl (Thiamine Hcl 100 Mg Tab) 100 mg PO DAILY RENNY Stop: 02/16/23 08:59 Vitamin D (Cholecalciferol 1,000 Units 25 Mcg Tab) 1,000 units PO DAILY RENNY Stop: 02/16/23 08:59 Zinc Sulfate (Zinc Sulfate 220 Mg Capsule) 220 mg PO DAILY RENNY Stop: 02/16/23 08:59 (2) Closed fracture of head of left humerus Encounter type: initial encounter Qualified Code(s): S42.292A - Other displaced fracture of upper end of left humerus, initial encounter for closed fracture
[2023-01-17] MEDS: IBUPROFEN 600 MG TAB PO SCH ×3 (09:01→20:05)
[2023-01-17] MEDS: ASCORBIC ACID 500 MG TAB PO SCH (09:02)
[2023-01-17] MEDS: MULTIVITAMIN TAB PO SCH (09:02)
[2023-01-17] MEDS: CETIRIZINE HCL 10 MG TABLET PO SCH (09:03)
[2023-01-17] MEDS: lisinopril 40 MG TAB PO SCH (09:03)
[2023-01-17] MEDS: CHOLECALCIFEROL 1,000 UNITS 25 MCG TAB PO SCH (09:03)
[2023-01-17] MEDS: ZINC SULFATE 220 MG CAPSULE PO SCH (09:04)
[2023-01-17] MEDS: THIAMINE HCL 100 MG TAB PO SCH (09:04)
[2023-01-17] MEDS: FOLIC ACID 1 MG TAB PO SCH (09:04)
[2023-01-17] MEDS: POTASSIUM CHLORIDE CRTAB 20 MEQ TABCR PO SCH ×2 (09:05→20:05)
[2023-01-17] MEDS: ENOXAPARIN INJ 40 MG/0.4 ML SYR SQ SCH (09:25)
--- NOTE | 2023-01-17 19:48 | Consultation Report ---
NEPHROLOGY CONSULTATION NOTE REASON FOR CONSULTATION: Hyponatremia. 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 She had shoulder surgery done in June and even at that time, she had a serum sodium of 135, but she was on hydrochlorothiazide at that time, which was stopped about a wee k ago, but even after stopping more than a week, sodium was still low yesterday with a reading of 124 on admission. She does not like the detention food and she is a vegetarian, so her food intake for pro jose ein is very low, but she is drinking a lot of liquids especially coffee, which she drinks pretty muc h all day. Vital signs appears reasonable with a blood pressure slightly high. She denies having an y nausea, vomiting, diarrhea, any significant pain. Since being admitted, she is on fluid restrictio n and with that serum sodium has steadily gone up and is up to 128 today. Urine test was done and ur ine osmolality was 247, urine sodium was 43, serum osmolarity was 260. PAST MEDICAL AND SURGICAL HISTORY: Includes a history of alcohol use disorder, history of bipolar, h istory of CVA, hypertension, neuropathy pain, cervical spine surgery and humeral fracture, status pos t ORIF. FAMILY HISTORY: Negative for renal disease or dialysis. SOCIAL HISTORY: Current smoker, history of alcohol use in the past. The [facility] for the last 7 months. No oxygen. No assistive device. ALLERGIES: List was reviewed and is as per H and P. MEDICATIONS: Home medication list was reviewed in detail and is as per the reconciliation list. The patient takes lisinopril, potassium twice daily. She was on hydrochlorothiazide up until recently. She is also listed to be taking ibuprofen 3 times a day inpatient as well as outpatient medication w as reviewed in detail. REVIEW OF SYSTEMS: She was pretty much asymptomatic other than her chronic symptoms related to the s [place] pain and surgery in her left hand. Twelve systems reviewed and is otherwise negative. PHYSICAL EXAMINATION: GENERAL: Elderly female who is not in any distress. She is awake, alert, oriented x3. HEENT: Mucous membranes are moist. NECK: Supple. No jugular venous distention. CHEST: Bilaterally clear to auscultation. CARDIOVASCULAR: S1 and S2, regular. ABDOMEN: Soft, nontender. EXTREMITIES: Show no edema. VITAL SIGNS: Show a blood pressure 151/96, pulse rate 74, temperature 36.8, 97% on room air. LABORATORY TEST: Reviewed and is already detailed in HPI. Serum sodium was 124 on admission. Even 7 months ago she had a somewhat low sodium of 135. Most recent BMP shows a sodium of 128. ASSESSMENT AND PLAN: A 62-year-old female who was sent over from the detention because of abnormal labs showing low sodium. 1. Hyponatremia: This appears to be acute worsening, but with underlying chronic hyponatremia. It is very reasonable to stop hydrochlorothiazide and she should never be on any thiazide-type diuretics . However, if she needs to be on diuretic, she can still be on a loop diuretic if needed. For the t buddy being, she appears euvolemic. Her serum osmolality is low, which means this is a case of true hy ponatremia. Urine osmolality, although low, is still inappropriate for the current serum sodium. Stan das is not eating a lot of protein and her fluid intake is very excessive. RECOMMENDATION: 1. Fluid restriction to 1500 mL per day. 2. Increase protein intake. She is a vegetarian and really does not like the food in the detention, wh ich makes this challenging. 3. At this point, a BMP can be done once daily. She does not need any other intervention for the hy ponatremia. It is quite possible that she will have chronic hyponatremia going forward, but as long as serum sodium is 128 plus, we do not necessarily need to do anything different. She will need to f ollow up after the discharge at some point to go over the labs. Thank you very much for the consult. Job ID: [id number]
[2023-01-17] MEDS: SERTRALINE HCL 50 MG TABLET PO SCH (20:04)
[2023-01-17] MEDS: OXcarbazepine 150 MG TABLET PO SCH (20:04)
[2023-01-17] MEDS: OLANZapine 10 MG TAB PO SCH (20:06)
[2023-01-18] MEDS: POTASSIUM CHLORIDE CRTAB 20 MEQ TABCR PO SCH (07:58)
[2023-01-18] MEDS: OXcarbazepine 150 MG TABLET PO SCH (07:58)
[2023-01-18] MEDS: ZINC SULFATE 220 MG CAPSULE PO SCH (07:58)
[2023-01-18] MEDS: CETIRIZINE HCL 10 MG TABLET PO SCH (07:58)
[2023-01-18] MEDS: CHOLECALCIFEROL 1,000 UNITS 25 MCG TAB PO SCH (07:58)
[2023-01-18] MEDS: IBUPROFEN 600 MG TAB PO SCH ×2 (07:58→14:13)
[2023-01-18] MEDS: lisinopril 40 MG TAB PO SCH (07:58)
[2023-01-18] MEDS: THIAMINE HCL 100 MG TAB PO SCH (07:58)
[2023-01-18] MEDS: ENOXAPARIN INJ 40 MG/0.4 ML SYR SQ SCH (07:59)
[2023-01-18] MEDS: FOLIC ACID 1 MG TAB PO SCH (07:59)
[2023-01-18] MEDS: ASCORBIC ACID 500 MG TAB PO SCH (07:59)
[2023-01-18] MEDS: MULTIVITAMIN TAB PO SCH (07:59)
[2023-01-18 09:04] LABS: BUN Creatinine Ratio 31.4 (10-20); Calcium 9.4 mg/dl (8.6-10.3); Creatinine Clr Calc Pharmacy 97.7 ml/min; Est GFR (African American) 117.8 ml/min; Est GFR (Non-African American) 101.6 ml/min; Magnesium 2.1 mg/dl (1.7-2.4); Phosphorus 5.4 mg/dl (2.5-4.9); Potassium 4.4 mmol/L (3.5-5.1)
[2023-01-18 09:30] LABS: Hematocrit (blood only) 34.6 % (37.0-47.0); Hemoglobin 12.2 g/dl (12.0-16.0); Mean Corpuscular Hgb Conc 35.3 g/dL (32.0-36.0); Mean Corpuscular Volume 87.8 fL (80.0-100.0); Mean Platelet Volume 8.7 fL (9.4-12.4); Platelet Count 287 K/uL (130-400); RDW Coefficient of Variation 11.9 % (11.5-14.5); RDW Standard Deviation 38.3 fL (36.4-46.3); Red Blood Count 3.94 M/uL (4.20-5.40)
--- NOTE | 2023-01-18 11:21 | Nephrology Progress Note ---
Date of Service January 18, 2023 Assessment & Plan Admission and Anticipated Discharge Date Admission Date: January 16, 2023 Subjective S--no new issues. PHYSICAL EXAMINATION: GENERAL: Elderly female who is not in any distress. She is awake, alert, oriented x3. HEENT: Mucous membranes are moist. NECK: Supple. No jugular venous distention. CHEST: Bilaterally clear to auscultation. CARDIOVASCULAR: S1 and S2, regular. ABDOMEN: Soft, nontender. EXTREMITIES: Show no edema. LABORATORY TEST: Reviewed and is already detailed in HPI. Serum sodium was 124 on admission. now 134. ASSESSMENT AND PLAN: A 62-year-old female who was sent [facility] from the [facility] because of abnormal labs showing low sodium. 1. Hyponatremia: This appears to be acute worsening, but with underlying chronic hyponatremia. It is very reasonable to stop hydrochlorothiazide and she should never be on any thiazide-type diuretics. However, if she needs to be on diuretic, she can still be on a loop diuretic if needed. For the time being, she appears euvolemic. Her serum osmolality is low, which means this is a case of true hyponatremia. Urine osmolality, although low, is still inappropriate for the current serum sodium. She is not eating a lot of protein and her fluid intake is very excessive. RECOMMENDATION: 1. Fluid restriction to 1500 mL per day. 2. Increase protein intake. She is a vegetarian and really does not like the food in the [facility], which makes this challenging. 3. At this point, a BMP can be done once daily. 4 She does not need any other intervention for the hyponatremia. if possible Lower or stop NSAIDs. It is quite possible that she will have chronic hyponatremia going forward, but as long as serum sodium is 130 plus, we do not necessarily need to do anything different. 5 Sodium today is safely at 134. Good enough for Discharge if felt needed. No HCTZ. FFR 1500 ml. 6 Start Hydralazine 25 tid given highish BP. 7 f/u Nephrology within 1-2 week . Results & Data Vital Signs (Past 12 Hours) Vital Signs Temp Pulse Pulse Resp BP Pulse Ox O2 Del Method 01/18/23 07:05 36.5 C 74 18 152/102 H 95 Room Air 01/18/23 02:55 36.4 C L 75 18 132/83 94 Room Air 01/17/23 23:25 76
--- NOTE | 2023-01-18 14:47 | Discharge Summary ---
Date of Service January 18, 2023 Admission HPI Per Admitting Provider This is a 62-year-old female from [facility] presents with PMH of hypertension, spinal stenosis of cervical region and myelopathy with chronic pain, history of trauma to right shoulder with neuropathic pain, history of CVA, mood disorder and other medical problems listed below who presents from presented with abnormal lab work. Patient was discontinued from hydrochlorothiazide a week ago for an unknown reason and had blood work done 3 days ago that showed a sodium of 124. Repeat sodium from earlier today was 123 and patient was directed to ED for further evaluation. Endorses headache and feeling "fuzzy" but denies any lizzette confusion, nausea or vomiting. Does endorse recent muscle cramps. Denies any history of low sodium in the past. Has been drinking more water and coffee in the past few weeks, approximately 70 to 80 ounces daily of total liquid. Is on oxcarbazepine for paresthesias of right upper extremity following arm injury and has been on this medication for 6 months. Denies any fever, chills, lightheadedness, chest pain, shortness of breath, nausea, vomiting, abdominal pain, dysuria, diarrhea or constipation. Admission Exam Per Admitting Provider General Appearance:WD/WN, vitals as above, NAD, sitting up in bed, pleasant, conversing easily Head: normocephalic, atraumatic Eyes:normal inspection, PERRL, conjunctivae normal, anicteric sclerae ENT: external ear and nose normal, oropharynx normal Neck: normal visual inspection, trachea midline, no thyromegaly Respiratory:normal respiratory effort, lungs clear to auscultation, no wheeze, rales, rhonchi. No accessory muscle use Cardiovascular: regular rate, rhythm, no murmur, normal peripheral pulses, no BLE edema. Vessels: no JVD Chest: normal inspection of chest Abdomen/GI: normal bowel sounds, soft, nontender, no hepatosplenomegaly Extremities/Musculoskeletal: no cyanosis or clubbing, extremities motor strength 5/5. LUE with reduced mobility (chronic), L foot drop (chronic) Neurologic: PERRL, EOMI, accommodation nl, no face palsy, no dysarthria, CN's II-XI intact bilaterally and moves all extremities Psychiatric:A+Ox3, euthymic affect Skin: no rashes, normal color, warm/dry Principal Diagnosis Hyponatremia Discharge Exam General Appearance:WD/WN, in NAD Head: normocephalic, atraumatic Eyes:normal inspection, PERRL, conjunctivae normal, anicteric sclerae ENT: external ear and nose normal, oropharynx normal Neck: normal visual inspection Respiratory:normal respiratory effort, lungs clear to auscultation, no wheeze, rales, rhonchi. No accessory muscle use Cardiovascular: regular rate, rhythm, no murmur, normal peripheral pulses, no BLE edema. Vessels: no JVD Chest: normal inspection of chest Abdomen/GI: normal bowel sounds, soft, nontender Extremities/Musculoskeletal: moves extremities. LUE with reduced mobility (chronic), L foot drop (chronic) Neurologic: PERRL, EOMI, no face palsy, no dysarthria, moves all extremities Psychiatric:A+Ox3, euthymic affect Skin: normal color, warm/dry Discharge Data Allergies Allergy/AdvReac Type Severity Reaction Status Date / Time hydroxyzine AdvReac Unknown DELIRIUM Verified 02/28/22 16:36 Consultations 01/16/23 15:28 ED Decision to Admit Stat 01/16/23 16:28 Consult Nephrology Routine Hospital Course (1) Acute hyponatremia: (2) Closed fracture of head of left humerus: (3) HTN (hypertension): (4) Major depressive disorder, recurrent episode: (5) Neuropathic pain: Plan This is a 62 yo F from [facility] presents with hypertension, spinal stenosis of cervical region and myelopathy with chronic pain, history of trauma to right shoulder with neuropathic pain, history of CVA, mood disorder and other medical problems listed below who presents from presented with hyponatremia. Hyponatremia Chronicity unclear but recent labwork from 01/13 with Na 123 on admission. Reportedly HCTZ has been on hold for 1 week. serum osm 260, urine osm 247, urine sodium 43 Recent increased water intake, low protein diet, ? possible side effect from oxcarbazepine - hold medication initially, fluid restrict at 1.5 L Nephrology consulted - cont. FR 1.5 L , recommend higher protein diet, ok to cont. oxcarbazepine. Recommend to decrease or stop NSAIDs use. Stop HCTZ - do not resume. Follow up w/ nephrology in 1-2 weeks. Oxycarbazepine level pending HTN Hctz discontinued 1 week ago. Continue lisinopril Start hydralazine 25 mg tid Neuropathic pain 2/2 LUE injury L shoulder 3 view due to continue pain from old injury Holding oxcarbazepine initially due to its likely contribution to hyponatremia, discussed w/ nephrology - will resume Continue PRN tylenol, try to avoid NSAIDs Mood disorder Continue Zyprexa, Zoloft PCP: [facility] Total Time Total Time Spent Total Time Spent (In Minutes): 40 Discharge Plan Discharge Items [facility] Disposition: [facility] Reason For Visit: HYPONATREMIA Discharge Diagnosis: Hyponatremia Activity: Per Instructions section Non-emergency contact: Primary Care Provider and Fingerer Call non-emergency contact if: you have any medication questions and your symptoms worsen Follow-up/Referrals: [facility] [Primary Care Provider] - Diet: Regular Fluids: 1500ml (6 cups) Diet Comment: Recommend increased protein diet Addtl Attending Provider Instructions: Follow-up with primary care physician, and nephrology. Follow fluid restriction 1.5 L a day. Recommend increased protein diet. Do not resume hydrochlorothiazide. This medication should not be restarted. Try to avoid or decrease NSAIDs use. For blood pressure, you were started on hydralazine 25 mg 3 times daily. Follow-up with nephrology in 1 to 2 weeks. Pending Studies at Discharge: No Stand-Alone Forms: My [facility] Skilled Items Patient informed of condition?: Yes Discharge Level of Care: Other Communicable Disease: No Discharge Prognosis: Stable Lines: None Urinary Catheter: No Medications and DC Order Prescriptions: New hydralazine 25 mg tablet 25 mg PO TID Qty: 14 0RF Continued olanzapine [Zyprexa] 5 mg Tablet 10 mg PO HS ascorbic acid (vitamin C) [Vitamin C] 500 mg Tablet 500 mg PO DAILY sertraline [Zoloft] 50 mg Tablet 150 mg PO HS zinc 50 mg Capsule 50 mg PO DAILY cholecalciferol (vitamin D3) [Vitamin D3] 25 mcg (1,000 unit) Tablet 25 mcg PO DAILY multivitamin Tablet 1 tab PO DAILY cetirizine 10 mg Tablet 10 mg PO DAILY thiamine HCl (vitamin B1) 100 mg Tablet 100 mg PO DAILY acetaminophen 500 mg Tablet 500 mg PO BID PRN (Reason: Pain) folic acid 1 mg Tablet 1 mg PO DAILY ibuprofen 600 mg Tablet 600 mg PO TID lisinopril 40 mg Tablet 40 mg PO DAILY oxcarbazepine 150 mg Tablet Extended Release 24 Hr 300 mg PO BID Rx Instructions: must be taken on empty stomach; no food at least 2 hrs before or 1 hr after dose potassium chloride 20 mEq Tablet Extended Release 20 meq PO BID Discharge Orders: Discharge Order (Routine); Ordered 01/18/23 Ordered By: Steve Moe Admission Data Admit Date/Time: 01/16/23 16:28 Attending Provider: Steve Moe Admit Provider: Prabhjot Moulton [facility] Other Providers: Prabhjot Moulton ; Levi Guaman
== END 2023-01-18 16:40 | DRG 641 ==
LOC: ED 12:36 → SUATTDRO 16:28 → 2E 16:28

== ENCOUNTER 2023-02-03 10:31 | Inpatient (IN) ==
--- NOTE | 2023-02-03 11:08 | Emergency Department Note ---
Impression & Plan Acute hyponatremia ED Provider Note INFORMANT: Patient ED PROVIDER(S): Camden Roach DO CHIEF COMPLAINT: Low sodium PLAN: Disposition: admission Outpatient prescription management: none Discussion with: I spoke with the hospitalist, who will see the patient for admission/observation and further evaluation and consultation. MEDICAL DECISION MAKING: This is a 62-year-old female who presents to the ED with a chief complaint of low sodium level. The patient states that she had her blood work done yesterday and she was told to come to the ED today because of low sodium. She states that it was 123 yesterday. She does report a fluid restriction of 1.5 L/day. She also reports that she was discharged on hydralazine for her hypertension and taken off of hydrochlorothiazide. The patient states that she has a mild headache which she attributes to her blood pressure being elevated this morning. She also reports some cramping in the left thigh. No other specific complaints at this time. Exam was unremarkable. She is in no distress. Lungs are clear. Heart is regular rate rhythm. Abdomen soft nontender. The patient sodium today is 124. Chemistry panel was otherwise unremarkable, CBC did not show any concerning anemia or leukocytosis. COVID test was negative. EKG shows a sinus rhythm at a rate of 67. The patient was told the results. She will be seen by the hospitalist for further evaluation and care Triage Nursing notes reviewed. Vital Signs: reviewed Prior /Outside records reviewed: [none] Differential diagnosis: Differential includes acute coronary syndrome, myocardial infarction, CVA, TIA, anemia, infection, pneumonia, UTI, pyelonephritis, poor nutrition, dehydration, electrolyte disturbance,hypoglycemia. Diagnostics, as interpreted by me: 12 lead ECG: Sinus rhythm at a rate of 67. First-degree AV block. No ST elevation. No PVCs. Normal QTc Cardiac Monitoring ordered: Sinus rhythm in the 60s and 70s Medical decision rules: [none] Imaging studies: [none] Procedures: none. Critical care: none. HPI: See MDM above. PAST MEDICAL HISTORY: See Below PAST SURGICAL HISTORY: See Below SOCIAL HISTORY: See Below HOME MEDICATIONS:See Below ALLERGIES: See Below VITALS: See Below PHYSICAL EXAMINATION: See MDM for positive findings otherwise unremarkable. CONSTITUTIONAL/VITAL SIGNS: Reviewed GENERAL:done as appropriate INTEGUMENTARY: done as appropriate HEAD: done as appropriate EYES: done as appropriate RESPIRATORY: done as appropriate CARDIOVASCULAR:done as appropriate GI/ABDOMEN:done as appropriate EXTREMITIES: done as appropriate NEUROLOGICAL: done as appropriate PSYCHIATRIC:done as appropriate MUSCULOSKELETAL:done as appropriate TRIAGE NURSING DOCUMENTATION REVIEWED. Past Med/Surg History Medical History (Updated 02/03/23 @ 12:39 by Camden Roach DO) Alcohol use disorder History of CVA (cerebrovascular accident) HTN (hypertension) Major depressive disorder, recurrent episode Neuropathic pain Surgical History (Updated 01/16/23 @ 21:16 by Mitali De La Cruz PA-C) H/O cervical spine surgery Humeral fracture s.p ORIF Family History Other Asthma Depression Diabetes Social History (Updated 01/16/23 @ 21:18 by Mitali De La Cruz PA-C) Smoking Status: Current every day smoker Tobacco Type: Cigarettes Second Hand Exposure: No; Do You Dip or Chew Tobacco: No; Hx Alcohol Use: No Hx Substance Use: No Preferred Language: [place] 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 Ability: 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 Anesthesiology Required: No Beliefs That Will Affect Care: None Current Living Situation: Other Current Living Situation Comment: Pt has been in Shelter for 7 months Feels Safe at Home: Yes Assistive Devices: None Allergies Allergies Allergy/AdvReac Type Severity Reaction Status Date / Time hydroxyzine AdvReac Unknown DELIRIUM Verified 02/28/22 16:36 Home Meds Home Medications Medication Instructions Recorded Confirmed acetaminophen 500 mg tablet 500 mg PO BID PRN Pain 01/16/23 02/03/23 ascorbic acid (vitamin C) 500 mg 500 mg PO DAILY 01/16/23 02/03/23 tablet (Vitamin C) cetirizine 10 mg tablet 10 mg PO DAILY 01/16/23 02/03/23 cholecalciferol (vitamin D3) 25 25 mcg PO DAILY 01/16/23 02/03/23 mcg (1,000 unit) tablet (Vitamin D3) folic acid 1 mg tablet 1 mg PO DAILY 01/16/23 02/03/23 ibuprofen 600 mg tablet 600 mg PO TID 01/16/23 02/03/23 lisinopril 40 mg tablet 40 mg PO DAILY 01/16/23 02/03/23 multivitamin 1 tab PO DAILY 01/16/23 02/03/23 olanzapine 5 mg tablet (Zyprexa) 10 mg PO HS 01/16/23 02/03/23 oxcarbazepine 150 mg 300 mg PO BID 01/16/23 02/03/23 tablet,extended release 24 hr potassium chloride 20 mEq 20 meq PO BID 01/16/23 02/03/23 tablet,extended release sertraline 50 mg tablet (Zoloft) 150 mg PO HS 01/16/23 02/03/23 thiamine HCl (vitamin B1) 100 mg 100 mg PO DAILY 01/16/23 02/03/23 tablet hydrocortisone 2.5 % topical cream 1 applic topical BID 02/03/23 02/03/23 metoprolol succinate 25 mg 25 mg PO BID 02/03/23 02/03/23 tablet,extended release 24 hr zinc 50 mg tablet 50 mg PO DAILY 02/03/23 02/03/23 Previous Rx's Medication Instructions Recorded hydralazine 25 mg tablet 25 mg PO TID #14 tabs 01/18/23 Results & Data (ED) Vital Signs Vital Signs - 24 hr 02/03/23 10:39 02/03/23 11:12 02/03/23 11:12 Temperature 37.1 C Temperature Source Temporal Artery Scan Pulse Rate 74 Pulse Rate [Apical] 76 Pulse Rate from SpO2 Sensor Respiratory Rate 16 18 Respiratory Effort / Characteristics Non-Labored Respiratory Depth Normal Blood Pressure 166/104 H Blood Pressure [Right Arm] 146/85 H Blood Pressure Mean 124 Blood Pressure Mean [Right Arm] 105 Pulse Oximetry 97 97 Oxygen Delivery Method Room Air Room Air Room Air Sepsis Recent Fever Within 48 Hours No Sepsis New/Unexplained Change in Mental Status No Sepsis Action Taken by Nursing No Action Required 02/03/23 12:00 02/03/23 12:00 Temperature Temperature Source Pulse Rate 66 Pulse Rate [Apical] Pulse Rate from SpO2 Sensor 66 Respiratory Rate 19 Respiratory Effort / Characteristics Respiratory Depth Blood Pressure 168/97 H Blood Pressure [Right Arm] Blood Pressure Mean 120 Blood Pressure Mean [Right Arm] Pulse Oximetry 99 Oxygen Delivery Method Room Air Sepsis Recent Fever Within 48 Hours Sepsis New/Unexplained Change in Mental Status Sepsis Action Taken by Nursing Laboratory Data 02/03/23 10:54 02/03/23 10:54 Lab Results 02/03/23 02/03/23 02/03/23 Range/Units 10:54 10:54 11:13 WBC 3.49 L (4.8-10.8) K/ul RBC 3.69 L (4.20-5.40) M/uL Hgb 11.4 L (12.0-16.0) g/dl Hct 32.0 L (37.0-47.0) % MCV 86.7 (80.0-100.0) fL MCH 30.9 (25.0-34.0) pg MCHC 35.6 (32.0-36.0) g/dL RDW Std Deviation 38.3 (36.4-46.3) fL RDW Coeff of Eugenie 11.9 (11.5-14.5) % Plt Count 316 (130-400) K/uL MPV 8.6 L (9.4-12.4) fL Immature Gran % (Auto) 0.3 % Neut % (Auto) 49.2 % Lymph % (Auto) 32.4 % [place] % (Auto) 12.9 % Eos % (Auto) 4.6 % Baso % (Auto) 0.6 % Neut # (Auto) 1.72 (1.40-6.50) K/uL Lymph # (Auto) 1.13 L (1.2-3.4) K/uL [place] # (Auto) 0.45 (0.11-0.59) K/uL Eos # (Auto) 0.16 (0-0.50) K/uL Baso # (Auto) 0.02 (0-0.2) K/uL Immature Gran # (Auto) 0.01 (0.01-0.20) K/uL Sodium 124 L (136-145) mmol/L Potassium 4.5 (3.5-5.1) mmol/L Chloride 95 L (98-107) mmol/L Carbon Dioxide 25 (21-32) mmol/L Anion Gap 4 (3-11) BUN 12 (6-23) mg/dl Creatinine 0.37 L (0.6-1.2) mg/dl Est Cr Clr Drug Dosing 147.1 ml/min Est GFR ( Amer) 130.9 ml/min Est GFR (Non-Af Amer) 112.9 ml/min BUN/Creatinine Ratio 32.4 H (10-20) Glucose 98 (70-99(Fasting)) mg/dl Calcium 8.9 (8.6-10.3) mg/dl Total Bilirubin 0.4 (0.2-1.0) mg/dl AST 20 (13-39) U/L ALT 17 (7-52) U/L Alkaline Phosphatase 128 H (34-104) U/L Total Protein 6.5 (6.0-8.3) gm/dl Albumin 4.3 (3.4-5.0) gm/dl Globulin 2.2 L (2.5-4.0) gm/dl Albumin/Globulin Ratio 2.0 (0.9-2) SARS-CoV-2, RNA, NAAT NEGATIVE (NEGATIVE) Administered Medications Discontinued Medications Acetaminophen (Acetaminophen 500 Mg Tab) 500 mg PO NOW STA Stop: 02/03/23 11:58 Last Admin: 02/03/23 12:06 Dose: 500 mg Documented By: NATANAEL Discharge Plan Visit Data Chief Complaint: Abnormal Labs/Diagnostic Testing Stated Complaint: LOW SODIUM ED Provider: Camden Roach Discharge Problem: Acute hyponatremia Patient Disposition: Being Evaluated by Hospitalist Forms Stand Alone Forms: My [facility] Prescriptions Prescriptions: No Action olanzapine [Zyprexa] 5 mg Tablet 10 mg PO HS ascorbic acid (vitamin C) [Vitamin C] 500 mg Tablet 500 mg PO DAILY sertraline [Zoloft] 50 mg Tablet 150 mg PO HS cholecalciferol (vitamin D3) [Vitamin D3] 25 mcg (1,000 unit) Tablet 25 mcg PO DAILY multivitamin Tablet 1 tab PO DAILY cetirizine 10 mg Tablet 10 mg PO DAILY thiamine HCl (vitamin B1) 100 mg Tablet 100 mg PO DAILY acetaminophen 500 mg Tablet 500 mg PO BID PRN (Reason: Pain) folic acid 1 mg Tablet 1 mg PO DAILY ibuprofen 600 mg Tablet 600 mg PO TID lisinopril 40 mg Tablet 40 mg PO DAILY oxcarbazepine 150 mg Tablet Extended Release 24 Hr 300 mg PO BID Rx Instructions: must be taken on empty stomach; no food at least 2 hrs before or 1 hr after dose potassium chloride 20 mEq Tablet Extended Release 20 meq PO BID hydralazine 25 mg tablet 25 mg PO TID Qty: 14 0RF hydrocortisone 2.5 % Cream 1 applic TOPICAL BID zinc 50 mg Tablet 50 mg PO DAILY metoprolol succinate 25 mg Tablet Extended Release 24 Hr 25 mg PO BID Referrals Referrals: [facility] [Primary Care Provider] -
[2023-02-03 11:21] LABS: Basophils # (auto) 0.02 K/uL (0-0.2); Basophils % (auto) 0.6 %; Eosinophils # (auto) 0.16 K/uL (0-0.50); Eosinophils % (auto) 4.6 %; Hemoglobin 11.4 g/dl (12.0-16.0); Immature Granulocytes # (auto) 0.01 K/uL (0.01-0.20); Immature Granulocytes % (auto) 0.3 %; Lymphocytes # (auto) 1.13 K/uL (1.2-3.4); Lymphocytes % (auto) 32.4 %; Mean Corpuscular Hemoglobin 30.9 pg (25.0-34.0); Mean Corpuscular Hgb Conc 35.6 g/dL (32.0-36.0); Mean Corpuscular Volume 86.7 fL (80.0-100.0); Mean Platelet Volume 8.6 fL (9.4-12.4); Monocytes # (auto) 0.45 K/uL (0.11-0.59); Monocytes % (auto) 12.9 %; Neutrophils # (auto) 1.72 K/uL (1.40-6.50); Neutrophils % (auto) 49.2 %; Platelet Count 316 K/uL (130-400); RDW Coefficient of Variation 11.9 % (11.5-14.5); RDW Standard Deviation 38.3 fL (36.4-46.3); Red Blood Count 3.69 M/uL (4.20-5.40); White Blood Count 3.49 K/ul (4.8-10.8)
[2023-02-03 11:26] LABS: Albumin Level 4.3 gm/dl (3.4-5.0); BUN Creatinine Ratio 32.4 (10-20); Bilirubin,Total 0.4 mg/dl (0.2-1.0); Calcium 8.9 mg/dl (8.6-10.3); Creatinine Clr Calc Pharmacy 147.1 ml/min; Est GFR (African American) 130.9 ml/min; Est GFR (Non-African American) 112.9 ml/min; Globulin 2.2 gm/dl (2.5-4.0); Potassium 4.5 mmol/L (3.5-5.1); Total Protein 6.5 gm/dl (6.0-8.3)
[2023-02-03] MEDS ORDERED: ACETAMINOPHEN 500 MG TAB PO STA (11:57)
--- NOTE | 2023-02-03 12:10 | History & Physical Report ---
Date of Service February 03, 2023 Assessment & Plan (1) Hyponatremia: Plan: Patient is 62-year-old female with PMH HTN, chronic pain, mood disorder presented to ER for abnormal labs- Hyponatremia. Recent hospital admission 01/16/2023-01/18/2023 for hyponatremia thought to be secondary to HCTZ and increased fluid intake. Patient was. D/C on 1500ml FR. Upon chart review 01/16/23 Na: 124, Na: 134 on 01/18/2023. 02/02/23 labs: Na:123 Today in ER sodium level 124. Acute on chronic hyponatremia Obtain serum osmolality, urine osmolality, urine sodium TSH was 0.89 on 01/16/2023 Continue fluid restrictions 1500 mL Patient follows pescatarian diet Repeat BMP this evening to further assess sodium Nephrology consult BMP in a.m. (2) HTN (hypertension): Plan: Continue lisinopril, metoprolol tartrate Increase hydralazine from 25 mg 3 times daily to 50 mg 3 times daily Monitor BP (3) Major depressive disorder, recurrent episode: Plan: Continue sertraline, Zyprexa (4) Neuropathic pain: Plan: Continue oxcarbazepine DVT Prophylaxis SCDs Full Code as per discussion with pt Follows with Dr Deysi Coats for routine care, however is currenty in [facility] Pt was seen and care coordinated with Dr Abbott. See addendum I spent a total of 75 minutes reviewing notes, outpatient records, labs, medication, coordinating, documenting and providing care for this patient excluding time spent in the performance of separately billed services. History of Present Illness Chief Complaint: abnormal labs-hyponatremia Primary Care Provider: [facility] Patient is 62-year-old female with PMH HTN, chronic pain, mood disorder presented to ER for abnormal labs- Hyponatremia. Recent hospital admission 01/16/2023-01/18/2023 for hyponatremia. While hospitalized she was placed on 1500 mL fluid restriction daily. She was encouraged to increase protein intake in diet however she is a vegetarian and currently at the [facility] and has limited choices. She has not been on hydrochlorothiazide for the past 3 weeks. Patient states has been following strict 1500 mL fluid restriction. Upon hos pital discharge she was started on hydralazine 25 mg 3 times daily for hypertension. On 01/16/23 had sodium level of 124 which increased to 134 on 01/18/2023 on day of discharge. Had labs yesterday with result of sodium of 123 and was referred to ER. Today in ER sodium level 124. Patient reports ongoing intermittent cramping to left thigh which has been going on for weeks-months. She states she feels she has had trouble remembering for the past 11 months which she relates to a head injury 11 months ago. Patient states has intermittent headaches however noticed when she has the headache her BP is elevated. Reports had headache yesterday and had SBP of 180. She states they started her on Lopressor. Denies fever/chills, diaphoresis, N/V/D/C, dizziness, syncope, vision changes, neck pain, CP, SOB, orthopnea, palpitations, cough, sore throat, choking, otalgia, rhinorrhea, abdominal pain, paresthesias, weakness, extremity weakness, extremity edema, rashes, urinary symptoms. Allergies Allergy/AdvReac Type Severity Reaction Status Date / Time hydroxyzine AdvReac Unknown DELIRIUM Verified 02/28/22 16:36 Home Medications Medication Instructions Recorded Confirmed Type acetaminophen 500 mg tablet 500 mg PO BID PRN Pain 01/16/23 02/03/23 History ascorbic acid (vitamin C) 500 mg 500 mg PO DAILY 01/16/23 02/03/23 History tablet (Vitamin C) cetirizine 10 mg tablet 10 mg PO DAILY 01/16/23 02/03/23 History cholecalciferol (vitamin D3) 25 25 mcg PO DAILY 01/16/23 02/03/23 History mcg (1,000 unit) tablet (Vitamin D3) folic acid 1 mg tablet 1 mg PO DAILY 01/16/23 02/03/23 History ibuprofen 600 mg tablet 600 mg PO TID 01/16/23 02/03/23 History lisinopril 40 mg tablet 40 mg PO DAILY 01/16/23 02/03/23 History multivitamin 1 tab PO DAILY 01/16/23 02/03/23 History olanzapine 5 mg tablet (Zyprexa) 10 mg PO HS 01/16/23 02/03/23 History oxcarbazepine 150 mg 300 mg PO BID 01/16/23 02/03/23 History tablet,extended release 24 hr potassium chloride 20 mEq 20 meq PO BID 01/16/23 02/03/23 History tablet,extended release thiamine HCl (vitamin B1) 100 mg 100 mg PO DAILY 01/16/23 02/03/23 History tablet hydralazine 25 mg tablet 25 mg PO TID #14 tabs 01/18/23 02/03/23 Rx hydrocortisone 2.5 % topical cream 1 applic topical BID 02/03/23 02/03/23 History metoprolol tartrate 25 mg tablet 25 mg PO BID 02/03/23 02/03/23 History sertraline 200 mg capsule 200 mg PO DAILY 02/03/23 02/03/23 History zinc 50 mg tablet 50 mg PO DAILY 02/03/23 02/03/23 History Past Med/Surg History Medical History Alcohol use disorder History of CVA (cerebrovascular accident) HTN (hypertension) Major depressive disorder, recurrent episode Neuropathic pain Surgical History H/O cervical spine surgery Humeral fracture s.p ORIF Family History Other Asthma Depression Diabetes Social History Smoking Status: Current every day smoker Tobacco Type: Cigarettes Second Hand Exposure: No; Do You Dip or Chew Tobacco: No; Hx Alcohol Use: No Hx Substance Use: No Preferred Language: Citizen Of [place] 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 Ability: Unable [employer] Supervisor Required: No Beliefs That Will Affect Care: None Current Living Situation: Other Current Living Situation Comment: Pt has been in Assisted for 7 months Feels Safe at Home: Yes Assistive Devices: None Review of Systems Review of Systems: All systems reviewed & are unremarkable except as noted in HPI & below Physical Exam Physical Exam: General: no distress, WDWN Head: normocephalic, atraumatic Eyes: conjunctiva non-injected, anicteric ENT: normal inspection external ears, nose, mucous membranes moist Neck: supple, trachea midline, non-tender Lungs: clear, no respiratory distress, no wheezing/rhonchi/rales CV: RRR, no murmur, no pretibial edema Abd: normal BS, soft, non-tender Ext: no cyanosis, no calf tenderness Neuro: A&O x 3, no focal deficits noted, normal affect Skin: warm, dry Results & Data Results & Data Vital Signs (Past 12 Hours) Vital Signs Temp Pulse Pulse Resp BP BP Pulse Ox 02/03/23 12:00 66 19 99 02/03/23 12:00 168/97 H 02/03/23 11:12 02/03/23 11:12 76 18 146/85 H 97 02/03/23 10:39 37.1 C 74 16 166/104 H 97 O2 Del Method 02/03/23 12:00 Room Air 02/03/23 12:00 02/03/23 11:12 Room Air 02/03/23 11:12 Room Air 02/03/23 10:39 Room Air Laboratory Results Short CBC 02/03/23 Range/Units 10:54 WBC 3.49 L (4.8-10.8) K/ul Hgb 11.4 L (12.0-16.0) g/dl Hct 32.0 L (37.0-47.0) % Plt Count 316 (130-400) K/uL BMP 02/03/23 10:54 Sodium 124 L Potassium 4.5 Chloride 95 L Carbon Dioxide 25 BUN 12 Creatinine 0.37 L Glucose 98 Calcium 8.9 Liver Function 02/03/23 Range/Units 10:54 Total Bilirubin 0.4 (0.2-1.0) mg/dl AST 20 (13-39) U/L ALT 17 (7-52) U/L Alkaline Phosphatase 128 H (34-104) U/L Albumin 4.3 (3.4-5.0) gm/dl Urine 02/03/23 Range/Units 12:21 Urine Color Yellow Urine Appearance Clear (Clear) Urine pH 7.5 (4.5-7.5) Ur Specific [place] 1.011 (1.000-1.030) Urine Protein Negative (Negative) Urine Glucose (UA) Negative (Negative) Supervising Physician Co-Signing Physician Notes Patient was seen and examined independently at bedside. Chart reviewed including vitals, labs and recent admission notes and labs. Case discussed with Feli ARCHULETA and agree with the documentation above. In summary, this is a 62 year old female who presents to the ED from detention with recurrent hyponatremia. Recent admission two weeks ago for the same and her hyponatremia improved with fluid restriction and was discharged on 1.5 L fluid restriction. OP follow up lab yesterday showed recurrence of hyponatremia with sodium at 123 and is sent for the same. She states she is compliant to fluid restriction and would sometimes take extra salt too however she often forgets. She also has limited dietary choices in the detention due to her dietary restriction. On exam, AAO, MMM, chest clear, heart sounds normal, abd benign, no LE edema. Labs show sodium of 124, serum osm 263, urine osm 400, urine sodium 105, consistent with SIADH. Agree with fluid restriction, high protein diet, nephro eval. Repeat BMP q6hr to ensure adequately correcting. Will consider Sotomayor if not correcting appropriately, would not use salt tablets due to her hypertension. Increase HLZ for her elevated BP. Rest as per the note above.
[2023-02-03 12:39] LABS: Appearance Urine Clear (Clear); Bilirubin Urine Negative (Negative); Blood Urine Negative (Negative); Color Urine Yellow; Glucose Urine UA Negative (Negative); Ketones Urine Negative (Negative); Leukocyte Esterase Urine Negative (Negative); Nitrite Urine Negative (Negative); Protein Urine Negative (Negative); Specific Gravity Urine 1.011 (1.000-1.030); Urobilinogen Urine Negative (Negative); pH Urine 7.5 (4.5-7.5)
[2023-02-03 13:08] LABS: Creatinine Urine Random 26.7 mg/dl
[2023-02-03] MEDS ORDERED: BUTALBITAL/ACETAMIN/CAFFEINE TAB PO STA (13:30)
[2023-02-03] MEDS ORDERED: IBUPROFEN 600 MG TAB PO PRN (14:29)
[2023-02-03] MEDS ORDERED: ONDANSETRON INJ 2 MG/ML 2 ML VIAL IV PRN (14:29)
[2023-02-03] MEDS ORDERED: POLYETHYLENE (MIRALAX) 17 GM PACK PO PRN (14:29)
[2023-02-03] MEDS ORDERED: ACETAMINOPHEN 325 MG TAB PO PRN (14:29)
[2023-02-03 17:58] LABS: BUN Creatinine Ratio 26.1 (10-20); Calcium 9.1 mg/dl (8.6-10.3); Creatinine Clr Calc Pharmacy 117.7 ml/min; Est GFR (African American) 121.8 ml/min; Est GFR (Non-African American) 105.1 ml/min; Potassium 4.4 mmol/L (3.5-5.1)
[2023-02-03] MEDS: hydrALAZINE TAB 50 MG TAB PO SCH ×2 (18:56→21:24)
[2023-02-03] MEDS: UREA (UREA-NA) 15 GM PACK PO SCH (20:29)
[2023-02-03] MEDS: POTASSIUM CHLORIDE CRTAB 20 MEQ TABCR PO SCH (21:23)
[2023-02-03] MEDS: METOPROLOL TARTRATE 25 MG TAB PO SCH (21:23)
[2023-02-03] MEDS: OLANZapine 10 MG TAB PO SCH (21:23)
[2023-02-03] MEDS: OXcarbazepine 150 MG TABLET PO SCH (21:24)
[2023-02-03] MEDS: ACETAMINOPHEN 325 MG TAB PO PRN (21:29)
[2023-02-03] MEDS: IBUPROFEN 600 MG TAB PO PRN (21:30)
[2023-02-04 07:20] LABS: BUN Creatinine Ratio 47.2 (10-20); Calcium 8.8 mg/dl (8.6-10.3); Creatinine Clr Calc Pharmacy 102.3 ml/min; Est GFR (African American) 116.3 ml/min; Est GFR (Non-African American) 100.3 ml/min; Potassium 4.6 mmol/L (3.5-5.1)
--- NOTE | 2023-02-04 07:20 | Hospitalist Progress Note ---
Date of Service February 04, 2023 Assessment & Plan (1) Hyponatremia: Plan: Patient is 62-year-old female with PMH HTN, chronic pain, mood disorder presented to ER for abnormal labs- Hyponatremia. Recent hospital admission 01/16/2023-01/18/2023 for hyponatremia thought to be secondary to HCTZ and increased fluid intake. Patient was. D/C on 1500ml FR. Upon chart review 01/16/23 Na: 124, Na: 134 on 01/18/2023. 02/02/23 labs: Na:123 n ER sodium level 124. Today 02/04 Na 129 Acute on chronic hyponatremia serum osm 263, urine osm 400, urine sodium 105 SIADH TSH was 0.89 on 01/16/2023 Continue fluid restrictions 1500 mL Patient follows pescatarian diet Repeat BMP AM Nephrology consult, started urea, cont. FR (2) HTN (hypertension): Plan: Continue lisinopril, metoprolol tartrate Increased hydralazine on admission from 25 mg 3 times daily to 50 mg 3 times daily Monitor BP (3) Major depressive disorder, recurrent episode: Plan: Continue sertraline, Zyprexa (4) Neuropathic pain: Plan: Continue oxcarbazepine DVT Prophylaxis SCDs Full Code as per discussion with pt Follows with Dr Deysi Coats for routine care, however is currenty in [facility] Admission and Anticipated Discharge Date Admission Date: February 03, 2023 Subjective Pt seen in follow up of hyponatremia Currently sitting up in bed, in no acute distress No fevers chills chest pain no dizziness no lightheadedness Sodium already improved at 129. She was started on urea and fluid restriction on admission Review of Systems Review of Systems: All systems reviewed & are unremarkable except as noted in Subjective Physical Exam Physical Exam: General: no distress, WDWN Head: normocephalic, atraumatic Eyes: conjunctiva non-injected, anicteric ENT: normal inspection external ears, nose, mucous membranes moist Neck: supple Lungs: clear, no respiratory distress, no wheezing/rhonchi/rales CV: RRR, no murmur, no pretibial edema Abd: normal BS, soft, non-tender Ext: moves extremities Neuro: A&O x 3, no focal deficits noted, normal affect Skin: warm, dry Results & Data Results & Data Vital Signs (Past 12 Hours) Vital Signs Temp Pulse Pulse Resp BP BP Pulse Ox 02/04/23 02:40 36.6 C 66 16 101/65 96 02/03/23 22:35 36.4 C L 66 18 92/60 L 86/55 L 95 02/03/23 23:28 111/66 02/03/23 22:01 74 02/03/23 20:00 36.7 C 72 18 159/99 H 97 O2 Del Method 02/04/23 02:40 Room Air 02/03/23 22:35 Room Air 02/03/23 23:28 02/03/23 22:01 02/03/23 20:00 Room Air Laboratory Results 02/04/23 02/04/23 02/03/23 Range/Units 06:07 06:07 17:07 WBC 3.39 L (4.8-10.8) K/ul RBC 3.53 L (4.20-5.40) M/uL Hgb 10.9 L (12.0-16.0) g/dl Hct 30.9 L (37.0-47.0) % MCV 87.5 (80.0-100.0) fL MCH 30.9 (25.0-34.0) pg MCHC 35.3 (32.0-36.0) g/dL RDW Std Deviation 38.9 (36.4-46.3) fL RDW Coeff of Eugenie 12.0 (11.5-14.5) % Plt Count 287 (130-400) K/uL MPV 8.8 L (9.4-12.4) fL Sodium 129 L 123 L (136-145) mmol/L Potassium 4.6 4.4 (3.5-5.1) mmol/L Chloride 97 L 94 L (98-107) mmol/L Carbon Dioxide 26 23 (21-32) mmol/L Anion Gap 6 6 (3-11) BUN 25 H 12 (6-23) mg/dl Creatinine 0.53 L 0.46 L (0.6-1.2) mg/dl Est Cr Clr Drug Dosing 102.3 117.7 ml/min Est GFR ( Amer) 116.3 121.8 ml/min Est GFR (Non-Af Amer) 100.3 105.1 ml/min BUN/Creatinine Ratio 47.2 H 26.1 H (10-20) Glucose 86 101 H (70-99(Fasting)) mg/dl Calcium 8.8 9.1 (8.6-10.3) mg/dl Medications Administered Current Inpatient Medications Acetaminophen (Acetaminophen 325 Mg Tab) 650 mg PO Q4H PRN PRN Reason: Mild Pain (Scale 1, 2, 3) Stop: 03/05/23 14:28 Last Admin: 02/04/23 12:32 Dose: 650 mg Cetirizine HCl (Cetirizine Hcl 10 Mg Tablet) 10 mg PO DAILY [facility] Stop: 03/06/23 08:59 Last Admin: 02/04/23 07:53 Dose: 10 mg Folic Acid (Folic Acid 1 Mg Tab) 1 mg PO DAILY [facility] Stop: 03/06/23 08:59 Last Admin: 02/04/23 07:54 Dose: 1 mg Hydralazine HCl (Hydralazine Tab 50 Mg Tab) 50 mg PO TID [facility] Stop: 03/05/23 14:28 Last Admin: 02/04/23 13:48 Dose: Not Given Ibuprofen (Ibuprofen 600 Mg Tab) 600 mg PO TID PRN PRN Reason: Mod-Sev Pain (Scale 4-10) Stop: 03/05/23 14:28 Last Admin: 02/04/23 12:33 Dose: 600 mg Lisinopril (Lisinopril 40 Mg Tab) 40 mg PO DAILY [facility] Stop: 03/06/23 08:59 Last Admin: 02/04/23 07:55 Dose: 40 mg Metoprolol Tartrate (Metoprolol Tartrate 25 Mg Tab) 25 mg PO BID [facility] Stop: 03/05/23 20:59 Last Admin: 02/04/23 07:55 Dose: 25 mg Multivitamins (Multivitamin Tab) 1 tab PO QAM [facility] Stop: 03/06/23 08:59 Last Admin: 02/04/23 07:55 Dose: 1 tab Olanzapine (Olanzapine 10 Mg Tab) 10 mg PO HS [facility] Stop: 03/05/23 20:59 Last Admin: 02/03/23 21:23 Dose: 10 mg Ondansetron HCl (Ondansetron Inj 2 Mg/Ml 2 Ml Vial) 4 mg IV Q6H PRN PRN Reason: Nausea Stop: 03/05/23 14:28 Oxcarbazepine (Oxcarbazepine 150 Mg Tablet) 300 mg PO BID RENNY Stop: 03/05/23 20:59 Last Admin: 02/04/23 07:55 Dose: 300 mg Polyethylene Glycol (Polyethylene (Miralax) 17 Gm Pack) 17 gm PO DAILY PRN PRN Reason: Constipation Stop: 03/05/23 14:28 Potassium Chloride (Potassium Chloride Crtab 20 Meq Tabcr) 20 meq PO BID RENNY Stop: 03/05/23 20:59 Last Admin: 02/04/23 07:58 Dose: Not Given Sertraline HCl (Sertraline Hcl 100 Mg Tablet) 200 mg PO DAILY [facility] Stop: 03/06/23 08:59 Last Admin: 02/04/23 07:57 Dose: 200 mg Thiamine HCl (Thiamine Hcl 100 Mg Tab) 100 mg PO DAILY [facility] Stop: 03/06/23 08:59 Last Admin: 02/04/23 07:57 Dose: 100 mg Urea (Urea (Urea-Na) 15 Gm Pack) 15 gm PO BID [facility]ENNY Stop: 03/05/23 20:59 Last Admin: 02/04/23 07:53 Dose: 15 gm Vitamin D (Cholecalciferol 1,000 Units 25 Mcg Tab) 1,000 units PO DAILY [facility]ENNY Stop: 03/06/23 08:59 Last Admin: 02/04/23 07:53 Dose: 1,000 units
[2023-02-04 07:22] LABS: Hematocrit (blood only) 30.9 % (37.0-47.0); Hemoglobin 10.9 g/dl (12.0-16.0); Mean Corpuscular Hemoglobin 30.9 pg (25.0-34.0); Mean Corpuscular Hgb Conc 35.3 g/dL (32.0-36.0); Mean Corpuscular Volume 87.5 fL (80.0-100.0); Mean Platelet Volume 8.8 fL (9.4-12.4); Platelet Count 287 K/uL (130-400); RDW Standard Deviation 38.9 fL (36.4-46.3); Red Blood Count 3.53 M/uL (4.20-5.40); White Blood Count 3.39 K/ul (4.8-10.8)
--- NOTE | 2023-02-04 07:28 | Electrocardiogram Report ---
Test Reason : Blood Pressure : / mmHG Vent. Rate : 067 BPM Atrial Rate : 067 BPM P-R Int : 246 ms QRS Dur : 084 ms QT Int : 390 ms P-R-T Axes : 042 039 029 degrees QTc Int : 412 ms Sinus rhythm with 1st degree A-V block Otherwise normal ECG When compared with ECG of 16-JAN-2023 13:52, No significant change was found Confirmed by Henry Diaz ([id number]) on 02/04/2023 7:28:31 AM Referred By: [facility] Confirmed By:Lamine Diaz
[2023-02-04] MEDS: UREA (UREA-NA) 15 GM PACK PO SCH ×2 (07:53→20:41)
[2023-02-04] MEDS: CHOLECALCIFEROL 1,000 UNITS 25 MCG TAB PO SCH (07:53)
[2023-02-04] MEDS: CETIRIZINE HCL 10 MG TABLET PO SCH (07:53)
[2023-02-04] MEDS: FOLIC ACID 1 MG TAB PO SCH (07:54)
[2023-02-04] MEDS: OXcarbazepine 150 MG TABLET PO SCH ×2 (07:55→20:41)
[2023-02-04] MEDS: MULTIVITAMIN TAB PO SCH (07:55)
[2023-02-04] MEDS: lisinopril 40 MG TAB PO SCH (07:55)
[2023-02-04] MEDS: METOPROLOL TARTRATE 25 MG TAB PO SCH ×2 (07:55→20:42)
[2023-02-04] MEDS: SERTRALINE HCL 100 MG TABLET PO SCH (07:57)
[2023-02-04] MEDS: THIAMINE HCL 100 MG TAB PO SCH (07:57)
[2023-02-04] MEDS: POTASSIUM CHLORIDE CRTAB 20 MEQ TABCR PO SCH ×2 (07:58→20:46)
[2023-02-04] MEDS: hydrALAZINE TAB 50 MG TAB PO SCH ×3 (12:23→20:40)
[2023-02-04] MEDS: ACETAMINOPHEN 325 MG TAB PO PRN ×2 (12:32→20:46)
[2023-02-04] MEDS: IBUPROFEN 600 MG TAB PO PRN ×2 (12:33→20:47)
--- NOTE | 2023-02-04 14:31 | Consultation Report ---
NEPHROLOGY CONSULTATION NOTE REASON FOR CONSULTATION: Hyponatremia. HISTORY OF PRESENT ILLNESS: The patient is a 62-year-old female with history of hypertension, chroni c pain, and mood disorder/bipolar disorder, who presented to the Emergency Department from [facility] for abnormal labs. Specifically, her sodium was low. Recent hospital admission from 3 to 01/18/2023 for hyponatremia. While hospitalized, she was placed on 1500 mL fluid restriction da fernanda and was encouraged to increase protein intake in diet. She claims she is very diligent with the fluid restriction, but does not feel she is getting enough protein. She used to be on hydrochlorothi azide, but has not taken that for the last 3 weeks. At the time of discharge on 01/18/2023, she had a serum sodium of 134, but yesterday sodium was low at 123. She did not receive any IV fluid, but wa s placed again on fluid restriction and was given urea. This morning, sodium was up to 129. She fee ls normal. Blood pressure has been a challenge from both high as well as low. On admission yesterda y, her blood pressure was as high as 160/100, but then she also had a low reading late at night. Mos t recent blood pressure is very reasonable. ALLERGIES: HYDROXYZINE. MEDICATIONS: Home medication list was reviewed in detail and is as per the reconciliation list. PAST MEDICAL AND SURGICAL HISTORY: Includes history of alcohol use, history of CVA, hypertension, ma zulma depressive disorder, recurrent episode in the past; neuropathic pain, cervical spine surgery, and humeral fracture. FAMILY HISTORY: Positive for asthma, depression, and diabetes. SOCIAL HISTORY: Current everyday smoker. History of alcohol abuse in the past. 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 The patient has been in intermediate for the last 7 months. REVIEW OF SYSTEMS: Twelve systems reviewed and is otherwise negative. She does not have any acute s ymptoms at this time as the admission was done for abnormal labs. PHYSICAL EXAMINATION: GENERAL: A middle-aged white female, who is not in any overt respiratory distress. She is awake, al ert, and oriented x3. VITAL SIGNS: Blood pressure 112/69, pulse rate 67, temperature 37.2, and 93% on room air. HEENT: Mucous membranes are moist. NECK: Supple. No jugular venous distention. CHEST: Bilaterally clear to auscultation. CARDIOVASCULAR: S1 and S2, regular. ABDOMEN: Soft and nontender. EXTREMITIES: Show no edema. LABORATORY TEST: Reviewed and most recent sodium is 129, on admission yesterday was 123; BUN 25, and creatinine 0.5. Urine osmolality is inappropriately high at 400 and urine sodium was 105. ASSESSMENT AND PLAN: A 62-year-old female with euvolemic hyponatremia secondary to syndrome of inapp ropriate antidiuretic hormone. Even though her hydrochlorothiazide has been stopped 3 weeks ago, she still has low sodium. Her urine osmolality as well as urine electrolytes and physical examination a nd history is very consistent with syndrome of inappropriate antidiuretic hormone. During her last h ospital stay, she was placed on 1500 mL fluid restriction and with that sodium was able to get as hig h as 134. However, after going back to [facility], it has dropped again. She claims she is 100% followi ng the fluid limit, but I do have serious doubt that she is actually maintaining the same fluid limit . Since being admitted, she has been placed back on the 1500 mL fluid restriction and sodium is alre kadeem improving nicely and is up to 129. She does need to increase her protein intake. She is a veget vandana, but she does eat eggs and fish. At the time of discharge, we should write specifically that s he should have at least 4 eggs per day to provide adequate source of protein on top of the vegetarian source of protein. While in the hospital, I will continue with urea 15 g twice daily, but this is n ot a medicine that is easy to use correction as an outpatient for various reasons. At this time, once daily lab is enough. Thank you very much for the consult. Job ID: [id number]
[2023-02-04] MEDS: OLANZapine 10 MG TAB PO SCH (20:41)
[2023-02-05] MEDS: UREA (UREA-NA) 15 GM PACK PO SCH (08:12)
[2023-02-05] MEDS: OXcarbazepine 150 MG TABLET PO SCH (08:12)
[2023-02-05] MEDS: CHOLECALCIFEROL 1,000 UNITS 25 MCG TAB PO SCH (08:13)
[2023-02-05] MEDS: hydrALAZINE TAB 50 MG TAB PO SCH ×2 (08:13→14:11)
[2023-02-05] MEDS: FOLIC ACID 1 MG TAB PO SCH (08:14)
[2023-02-05] MEDS: lisinopril 40 MG TAB PO SCH (08:14)
[2023-02-05] MEDS: SERTRALINE HCL 100 MG TABLET PO SCH (08:14)
[2023-02-05] MEDS: MULTIVITAMIN TAB PO SCH (08:14)
[2023-02-05] MEDS: CETIRIZINE HCL 10 MG TABLET PO SCH (08:14)
[2023-02-05] MEDS: METOPROLOL TARTRATE 25 MG TAB PO SCH (08:14)
[2023-02-05] MEDS: THIAMINE HCL 100 MG TAB PO SCH (08:14)
[2023-02-05] MEDS: POTASSIUM CHLORIDE CRTAB 20 MEQ TABCR PO SCH (08:20)
[2023-02-05 08:23] LABS: Calcium 8.7 mg/dl (8.6-10.3); Creatinine Clr Calc Pharmacy 109.1 ml/min; Est GFR (African American) 118.5 ml/min; Est GFR (Non-African American) 102.3 ml/min; Magnesium 2.1 mg/dl (1.7-2.4); Phosphorus 5.2 mg/dl (2.5-4.9); Potassium 4.8 mmol/L (3.5-5.1)
[2023-02-05] MEDS: IBUPROFEN 600 MG TAB PO PRN ×2 (08:25→14:08)
[2023-02-05] MEDS: ACETAMINOPHEN 325 MG TAB PO PRN ×2 (08:26→14:07)
--- NOTE | 2023-02-05 10:18 | Hospitalist Progress Note ---
Date of Service February 05, 2023 Assessment & Plan (1) Hyponatremia: Plan: Patient is 62-year-old female with PMH HTN, chronic pain, mood disorder presented to ER for abnormal labs- Hyponatremia. Recent hospital admission 01/16/2023-01/18/2023 for hyponatremia thought to be secondary to HCTZ and increased fluid intake. Patient was. D/C on 1500ml FR. Upon chart review 01/16/23 Na: 124, Na: 134 on 01/18/2023. 02/02/23 labs: Na:123 n ER sodium level 124. 02/04 Na 129 and today 02/05/23 - Na 133 Acute on chronic hyponatremia serum osm 263, urine osm 400, urine sodium 105 SIADH TSH was 0.89 on 01/16/2023 Continue fluid restrictions 1500 mL Patient follows pescatarian diet Nephrology consulted, started urea, cont. FR Discharge recommendation from nephrology: 1. 1500 ml fluid limit. (most important) 2. No Urea for discharge 3. She needs BMP done On Sunday and results to come to Dr. Guaman's office -[facility] nephrology.Cannot be delayed. 4. Can stop kcl--was on this when she was on HCTZ. will reevaluate the need after BMP on Sunday. 5. Pt needs at least 4 eggs ( egg white to be more important) per day as well as vegetarian source of protein and fish if possible at the [facility]. (2) HTN (hypertension): Plan: Continue lisinopril, metoprolol tartrate Increased hydralazine on admission from 25 mg 3 times daily to 50 mg 3 times daily Monitor BP (3) Major depressive disorder, recurrent episode: Plan: Continue sertraline, Zyprexa (4) Neuropathic pain: Plan: Continue oxcarbazepine DVT Prophylaxis SCDs Full Code as per discussion with pt Follows with Dr Deysi Coats for routine care, however [facility] Admission and Anticipated Discharge Date Admission Date: February 03, 2023 Subjective Pt seen in follow up of hyponatremia Currently sitting up in bed, in no acute distress No fevers chills chest pain no dizziness no lightheadedness Sodium improved at 133. Discussed w/ nephrology - ok to DC. Discussed w/ [facility] medical staff - about FR, protein diet, BMP check on Sunday. Review of Systems Review of Systems: All systems reviewed & are unremarkable except as noted in Subjective Physical Exam Physical Exam: General: no distress, WDWN Head: normocephalic, atraumatic Eyes: conjunctiva non-injected, anicteric ENT: normal inspection external ears, nose, mucous membranes moist Neck: supple Lungs: clear, no respiratory distress, no wheezing/rhonchi/rales CV: RRR, no murmur, no pretibial edema Abd: normal BS, soft, non-tender Ext: moves extremities Neuro: A&O x 3, no focal deficits noted, normal affect Skin: warm, dry Results & Data Results & Data Vital Signs (Past 12 Hours) Vital Signs Temp Pulse Pulse Resp BP BP Pulse Ox 02/05/23 07:58 36.4 C L 68 18 126/71 96 02/05/23 07:23 70 02/05/23 02:43 36.4 C L 66 18 138/89 95 02/04/23 22:46 36.9 C 63 16 112/75 96 O2 Del Method 02/05/23 07:58 Room Air 02/05/23 07:23 02/05/23 02:43 Room Air 02/04/23 22:46 Room Air Laboratory Results 02/05/23 Range/Units 07:21 Sodium 133 L (136-145) mmol/L Potassium 4.8 (3.5-5.1) mmol/L Chloride 100 (98-107) mmol/L Carbon Dioxide 27 (21-32) mmol/L Anion Gap 6 (3-11) BUN 31 H (6-23) mg/dl Creatinine 0.50 L (0.6-1.2) mg/dl Est Cr Clr Drug Dosing 109.1 ml/min Est GFR ( Amer) 118.5 ml/min Est GFR (Non-Af Amer) 102.3 ml/min BUN/Creatinine Ratio 62.0 H (10-20) Glucose 90 (70-99(Fasting)) mg/dl Calcium 8.7 (8.6-10.3) mg/dl Phosphorus 5.2 H (2.5-4.9) mg/dl Magnesium 2.1 (1.7-2.4) mg/dl Medications Administered Current Inpatient Medications Acetaminophen (Acetaminophen 325 Mg Tab) 650 mg PO Q4H PRN PRN Reason: Mild Pain (Scale 1, 2, 3) Stop: 03/05/23 14:28 Last Admin: 02/05/23 08:26 Dose: 650 mg Cetirizine HCl (Cetirizine Hcl 10 Mg Tablet) 10 mg PO DAILY [facility] Stop: 03/06/23 08:59 Last Admin: 02/05/23 08:14 Dose: 10 mg Folic Acid (Folic Acid 1 Mg Tab) 1 mg PO DAILY [facility] Stop: 03/06/23 08:59 Last Admin: 02/05/23 08:14 Dose: 1 mg Hydralazine HCl (Hydralazine Tab 50 Mg Tab) 50 mg PO TID [facility] Stop: 03/05/23 14:28 Last Admin: 02/05/23 08:13 Dose: 50 mg Ibuprofen (Ibuprofen 600 Mg Tab) 600 mg PO TID PRN PRN Reason: Mod-Sev Pain (Scale 4-10) Stop: 03/05/23 14:28 Last Admin: 02/05/23 08:25 Dose: 600 mg Lisinopril (Lisinopril 40 Mg Tab) 40 mg PO DAILY [facility] Stop: 03/06/23 08:59 Last Admin: 02/05/23 08:14 Dose: 40 mg Metoprolol Tartrate (Metoprolol Tartrate 25 Mg Tab) 25 mg PO BID [facility] Stop: 03/05/23 20:59 Last Admin: 02/05/23 08:14 Dose: 25 mg Multivitamins (Multivitamin Tab) 1 tab PO QAM [facility] Stop: 03/06/23 08:59 Last Admin: 02/05/23 08:14 Dose: 1 tab Olanzapine (Olanzapine 10 Mg Tab) 10 mg PO HS [facility] Stop: 03/05/23 20:59 Last Admin: 02/04/23 20:41 Dose: 10 mg Ondansetron HCl (Ondansetron Inj 2 Mg/Ml 2 Ml Vial) 4 mg IV Q6H PRN PRN Reason: Nausea Stop: 03/05/23 14:28 Oxcarbazepine (Oxcarbazepine 150 Mg Tablet) 300 mg PO BID [facility] Stop: 03/05/23 20:59 Last Admin: 02/05/23 08:12 Dose: 300 mg Polyethylene Glycol (Polyethylene (Miralax) 17 Gm Pack) 17 gm PO DAILY PRN PRN Reason: Constipation Stop: 03/05/23 14:28 Potassium Chloride (Potassium Chloride Crtab 20 Meq Tabcr) 20 meq PO BID [facility] Stop: 03/05/23 20:59 Last Admin: 02/05/23 08:20 Dose: 20 meq Sertraline HCl (Sertraline Hcl 100 Mg Tablet) 200 mg PO DAILY [facility] Stop: 03/06/23 08:59 Last Admin: 02/05/23 08:14 Dose: 200 mg Thiamine HCl (Thiamine Hcl 100 Mg Tab) 100 mg PO DAILY [facility] Stop: 03/06/23 08:59 Last Admin: 02/05/23 08:14 Dose: 100 mg Urea (Urea (Urea-Na) 15 Gm Pack) 15 gm PO BID [facility] Stop: 03/05/23 20:59 Last Admin: 02/05/23 08:12 Dose: 15 gm Vitamin D (Cholecalciferol 1,000 Units 25 Mcg Tab) 1,000 units PO DAILY [facility] Stop: 03/06/23 08:59 Last Admin: 02/05/23 08:13 Dose: 1,000 units
--- NOTE | 2023-02-05 14:18 | Nephrology Progress Note ---
Date of Service February 05, 2023 Assessment & Plan Admission and Anticipated Discharge Date Admission Date: February 03, 2023 Subjective S---mo new issues. na is better. BP is fine PHYSICAL EXAMINATION: GENERAL: A middle-aged white female, who is not in any overt respiratory distress. She is awake, alert, and oriented x3. HEENT: Mucous membranes are moist. NECK: Supple. No jugular venous distention. CHEST: Bilaterally clear to auscultation. CARDIOVASCULAR: S1 and S2, regular. ABDOMEN: Soft and nontender. EXTREMITIES: Show no edema. LABORATORY TEST: Reviewed and most recent sodium is 133. on admission was 123; BUN 25, and creatinine 0.5. Urine osmolality is inappropriately high at 400 and urine sodium was 105. ASSESSMENT AND PLAN: A 62-year-old female with euvolemic hyponatremia secondary to syndrome of inappropriate antidiuretic hormone. Even though her hydrochlorothiazide has been stopped 3 weeks ago, she still has low sodium. Her urine osmolality as well as urine electrolytes and physical examination and history is very consistent with syndrome of inappropriate antidiuretic hormone. During her last hospital stay, she was placed on 1500 mL fluid restriction and with that sodium was able to get as high as 134. However, after going back to skilled nursing, it has dropped again. She claims she is 100% following the fluid limit, but I do have serious doubt that she is actually maintaining the same fluid limit. Since being admitted, she has been placed back on the 1500 mL fluid restriction and sodium went to 133 again. She does need to increase her protein intake. She is a vegetarian, but she does eat eggs and fish. At the time of discharge, we should write specifically that she should have at least 4 eggs per day to provide adequate source of protein on top of the vegetarian source of protein. 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 At this time, once daily lab is enough. for Discharge: 1 1500 ml fluid limit. ( most important) 2 No Urea for discharge 3 She needs BMP done On sun and results to come to my office.Cannot be delayed. 4 Can stop kcl--was on this when she was on HCTZ. will reevaluate the need after BMP on Sunday. 5 mention that she needs at least 4 eggs ( egg white to be more important) per day as well as vegetarian source of protein and fish if possible at the skilled nursing on the discharge summary Results & Data Vital Signs (Past 12 Hours) Vital Signs Temp Pulse Pulse Resp BP BP Pulse Ox 02/05/23 14:12 79 22 118/74 96 02/05/23 11:57 36.3 C L 61 20 126/85 96 02/05/23 07:58 36.4 C L 68 18 126/71 96 02/05/23 07:23 70 02/05/23 02:43 36.4 C L 66 18 138/89 95 O2 Del Method 02/05/23 14:12 Room Air 02/05/23 11:57 02/05/23 07:58 Room Air 02/05/23 07:23 02/05/23 02:43 Room Air
--- NOTE | 2023-02-05 15:35 | Discharge Summary ---
Date of Service February 05, 2023 Admission HPI Per Admitting Provider Patient is 62-year-old female with PMH HTN, chronic pain, mood disorder presented to ER for abnormal labs- Hyponatremia. Recent hospital admission 01/16/2023-01/18/2023 for hyponatremia. While hospitalized she was placed on 1500 mL fluid restriction daily. She was encouraged to increase protein intake in diet however she is a vegetarian and currently at the [facility] intermediate and has limited choices. She has not been on hydrochlorothiazide for the past 3 weeks. Patient states has been following strict 1500 mL fluid restriction. Upon hospital discharge she was started on hydralazine 25 mg 3 times daily for hypertension. On 01/16/23 had sodium level of 124 which increased to 134 on 01/18/2023 on day of discharge. Had labs yesterday with result of sodium of 123 and was referred to ER. Today in ER sodium level 124. Patient reports ongoing intermittent cramping to left thigh which has been going on for weeks-months. She states she feels she has had trouble remembering for the past 11 months which she relates to a head injury 11 months ago. Patient states has intermittent headaches however noticed when she has the headache her BP is elevated. Reports had headache yesterday and had SBP of 180. She states they started her on Lopressor. Denies fever/chills, diaphoresis, N/V/D/C, dizziness, syncope, vision changes, neck pain, CP, SOB, orthopnea, palpitations, cough, sore throat, choking, otalgia, rhinorrhea, abdominal pain, paresthesias, weakness, extremity weakness, extremity edema, rashes, urinary symptoms. Admission Exam Per Admitting Provider General: no distress, WDWN Head: normocephalic, atraumatic Eyes: conjunctiva non-injected, anicteric ENT: normal inspection external ears, nose, mucous membranes moist Neck: supple, trachea midline, non-tender Lungs: clear, no respiratory distress, no wheezing/rhonchi/rales CV: RRR, no murmur, no pretibial edema Abd: normal BS, soft, non-tender Ext: no cyanosis, no calf tenderness Neuro: A&O x 3, no focal deficits noted, normal affect Skin: warm, dry Principal Diagnosis Hyponatremia SIADH Discharge Exam General: no distress, WDWN Head: normocephalic, atraumatic Eyes: conjunctiva non-injected, anicteric ENT: normal inspection external ears, nose, mucous membranes moist Neck: supple Lungs: clear, no respiratory distress, no wheezing/rhonchi/rales CV: RRR, no murmur, no pretibial edema Abd: normal BS, soft, non-tender Ext: moves extremities Neuro: A&O x 3, no focal deficits noted, normal affect Skin: warm, dry Discharge Data Allergies Allergy/AdvReac Type Severity Reaction Status Date / Time hydroxyzine AdvReac Unknown DELIRIUM Verified 02/28/22 16:36 Consultations 02/03/23 14:29 Consult Nephrology Routine Hospital Course (1) Hyponatremia: Patient is 62-year-old female with PMH HTN, chronic pain, mood disorder presented to ER for abnormal labs- Hyponatremia. Recent hospital admission 01/16/2023-01/18/2023 for hyponatremia thought to be secondary to HCTZ and increased fluid intake. Patient was. D/C on 1500ml FR. Upon chart review 01/16/23 Na: 124, Na: 134 on 01/18/2023. 02/02/23 labs: Na:123 n ER sodium level 124. 02/04 Na 129 and today 02/05/23 - Na 133 Acute on chronic hyponatremia serum osm 263, urine osm 400, urine sodium 105 SIADH TSH was 0.89 on 01/16/2023 Continue fluid restrictions 1500 mL Patient follows pescatarian diet Nephrology consulted, started urea, cont. FR Discharge recommendation from nephrology: 1. 1500 ml fluid limit. (most important) 2. No Urea for discharge 3. She needs BMP done On Sunday and results to come to Dr. Guaman's office -[facility] nephrology.Cannot be delayed. 4. Can stop kcl--was on this when she was on HCTZ. will reevaluate the need after BMP on Sunday. 5. Pt needs at least 4 eggs ( egg white to be more important) per day as well as vegetarian source of protein and fish if possible at the intermediate. (2) HTN (hypertension): Continue lisinopril, metoprolol tartrate Increased hydralazine on admission from 25 mg 3 times daily to 50 mg 3 times daily Monitor BP (3) Major depressive disorder, recurrent episode: Continue sertraline, Zyprexa (4) Neuropathic pain: Continue oxcarbazepine Total Time Total Time Spent Total Time Spent (In Minutes): 40 Discharge Plan Discharge Items [facility] Reason For Visit: HYPONATREAMIA Discharge Diagnosis: Hyponatremia SIADH Activity: Per Instructions section Non-emergency contact: Primary Care Provider and Software Configuration Specialist Call non-emergency contact if: you have any medication questions and your symptoms worsen Follow-up/Referrals: [facility] [Primary Care Provider] - Diet: Regular and Vegetarian (Lacto-Ovo) Fluids: 1500ml (6 cups) Addtl Attending Provider Instructions: It is important that you continue fluid restriction, 1500 cc (mL) a day. Recommend diet higher in protein, such as at least 4 eggs a day (egg white more importantly), fish, extra beans. Check sodium level / BMP on Sunday, and please have results sent to [facility], Dr. Guaman. You can stop the potassium supplement, and the need for potassium supplement will be reevaluated after her BMP on Sunday. Hydralazine was increased to 50 mg 3 times daily. Pending Studies at Discharge: No Stand-Alone Forms: [facility] Skilled Items Patient informed of condition?: Yes Discharge Level of Care: Other Communicable Disease: No Discharge Prognosis: Stable Lines: None Urinary Catheter: No Medications and DC Order Prescriptions: New hydralazine 50 mg Tablet 50 mg PO TID Qty: 20 0RF Continued olanzapine [Zyprexa] 5 mg Tablet 10 mg PO HS ascorbic acid (vitamin C) [Vitamin C] 500 mg Tablet 500 mg PO DAILY cholecalciferol (vitamin D3) [Vitamin D3] 25 mcg (1,000 unit) Tablet 25 mcg PO DAILY multivitamin Tablet 1 tab PO DAILY cetirizine 10 mg Tablet 10 mg PO DAILY thiamine HCl (vitamin B1) 100 mg Tablet 100 mg PO DAILY acetaminophen 500 mg Tablet 500 mg PO BID PRN (Reason: Pain) folic acid 1 mg Tablet 1 mg PO DAILY ibuprofen 600 mg Tablet 600 mg PO TID lisinopril 40 mg Tablet 40 mg PO DAILY oxcarbazepine 150 mg Tablet Extended Release 24 Hr 300 mg PO BID Rx Instructions: must be taken on empty stomach; no food at least 2 hrs before or 1 hr after dose hydrocortisone 2.5 % Cream 1 applic TOPICAL BID zinc 50 mg Tablet 50 mg PO DAILY metoprolol tartrate 25 mg Tablet 25 mg PO BID sertraline 200 mg Capsule 200 mg PO DAILY Discontinued potassium chloride 20 mEq Tablet Extended Release 20 meq PO BID hydralazine 25 mg tablet 25 mg PO TID Qty: 14 0RF Discharge Orders: Discharge Order (Routine); Ordered 02/05/23 Ordered By: Steve Moe Admission Data Admit Date/Time: 02/03/23 12:16 Attending Provider: Steve Moe Admit Provider: Yanick Abbott Primary Care Provider: [facility] Other Providers: Levi Guaman ; Yanick Abbott
== END 2023-02-05 17:24 | DRG 644 ==
LOC: ED 10:31 → SUATTDRO 12:16 → EDINP 12:16 → 2W 15:00